=== PATIENT | female | born 1940 | race Caucasian/White ===

== ENCOUNTER 2024-01-25 09:08 | Inpatient (IN) | payer MEDICARE, BC, SELFPAY ==
[2024-01-23] VITALS (15 sets, daily range): BP systolic 118–166; BP diastolic 61–113; BMI 26.8
--- NOTE | 2024-01-23 10:19 | ED.GENMED ---
History of Present Illness
<BRANDY Silverman - Last Filed: 01/23/24 16:52>
General
Chief Complaint: Dizziness
Source: patient and family
Exam Limitations: none
Time Seen by Provider: 01/23/24 10:19
Nursing documentation reviewed up to this point in time: agreed with
History of Present Illness
History of Present Illness:
Patient is a 83-year-old female who presents to the ER for evaluation. Patient arrives awake alert though having difficulty giving history. She reports she was walking up her daughter's basement steps when she suddenly got weak all over and arms
and legs. She also complains of a headache for past week that started going to neck/jaw today. She feels that pain is in her bilateral jaw region. She did take
Daughter at bedside reports patient has been complaining of a headache for the past week but intensified today and she was complaining of pain to the neck shoulder and jaw. She did take a nitroglycerin. She however has had no chest pain no
shortness of breath. she denies any injury. She is on blood thinners.
Past History
<BRANDY Silverman - Last Filed: 01/23/24 16:52>
Past History
ED Past Medical History: CAD, GERD, HTN, Hypercholesterolemia and Other ('Lung problem')
ED Past Surgical History: Appendectomy, Cardiac (Stent) and Orthopedic
Social History
Tobacco: Non-smoker
Alcohol: None
Drug: None
Living: with family
Review of Systems
<BRANDY Silverman - Last Filed: 01/23/24 16:52>
Review of Systems
Allergies reviewed?: Yes
All Other Systems: ROS reviewed and negative except as documented in HPI and ROS
Constitutional: Reports fatigue
Respiratory: Reports no symptoms
Cardiac: Reports no symptoms
ABD/GI: Reports no symptoms
: Reports no symptoms
Musculoskeletal: Reports no symptoms
Neurological: Reports headache; Denies numbness
Endocrine: Reports no symptoms
Hematologic/Lymphatic: Reports no symptoms
Psychiatric: Reports no symptoms
Phy Exam
<BRANDY Silverman - Last Filed: 01/23/24 16:52>
General Physical Exam
General Presentation: well appearing
General age: appears stated age
General Skin: warm and dry
General Habitus: normal
General Mental: alert
General Hydration: appears well hydrated
Cardiovascular Exam
Cardiovascular Exam: regular rate/rhythm
Pulmonary Exam
Pulmonary Exam: lungs clear and no respiratory distress
Neurological Exam
Neurological Exam: alert and oriented x3
Musculoskeletal Exam
Musculoskeletal Exam: full ROM
Skin Exam
Skin Exam: normal color and warm/dry
Psychiatric Exam
Psychiatric Exam: normal mood/affect
Course
<BRANDY Silverman - Last Filed: 01/23/24 16:52>
Orders/Labs/Results
Orders:
Orders
01/23/24 10:12
Electrocardiogram (*1) Urgent
Reason for Study: Other
Other Reason for Exam: Possible Stroke
IV Insert/Care/Rem.- Treatment PRN
01/23/24 10:13
EKG- Treatment ONCE
01/23/24 10:22
Complete Blood Count/With Diff Urgent
Comprehensive Metabolic Panel Urgent
Troponin I Urgent
01/23/24 10:30
CT Head W/o Iv Contrast Stat
Comment:
Reason For Exam: HEADACHE CONFUSION
01/23/24 10:53
0.9% Sodium Chloride 1000 ml [Nss] 1,000 ml IV BOLUS
01/23/24 10:57
CT Head & Neck Angio W/wo IV Urgent
Comment:
Reason For Exam: headache neck pain jaw pain
01/23/24 11:04
UA Reflex to Culture [Urinalysis Reflex To Culture] Urgent
Date Specimen was Collected: 01/23/24
Time Specimen was Collected: 10:57
Urine Microscopic Reflex Cult Urgent
01/23/24 13:15
Acetaminophen [Tylenol] 1,000 mg PO NOW STA
Dexamethasone Sod Phosphate [Decadron] 10 mg IV NOW STA
01/23/24 13:47
Ketorolac [Toradol] 15 mg IV NOW STA
01/23/24 14:11
Electrocardiogram (*1) Stat
Reason for Study: Other
Other Reason for Exam: chest pain
EKG- Treatment ONCE
01/23/24 14:43
Troponin I Urgent
01/23/24 Dinner
2000 calorie (17 carb) Diabetic
At Your Request: Full Participation
Does patient need a safe tray?: No
01/23/24 16:56
HydrALAZINE [Apresoline] 20 mg PO NOW STA
01/23/24 18:14
Diphenhydramine [Benadryl] 25 mg IV NOW STA
Prochlorperazine [Compazine] 10 mg IV NOW STA
01/23/24 18:37
Admit/Transfer Patient As Directed
Co-Sign Provider:
Level of Care: Observation services
Assign to:: Telemetry
Physician / Group: Whitney
Diagnosis: Intractable Headache
Reason for Telemetry: Arrhythmia
Date to Stop Telemetry: 01/26/24
Time to Stop Telemetry: 11:00
01/23/24 18:40
Code Status As Directed
Resuscitation Status: Full Code
01/23/24 21:34
Acetaminophen [Tylenol/Feverall] 650 mg RECTAL Q4HPRN PRN
Acetaminophen [Tylenol] 650 mg PO Q4HPRN PRN
Carvedilol [Coreg] 25 mg PO BID
Dextrose 50%-Water [Dextrose 50% Syringe] 12.5 grams IV [id number] PRN
Glucagon [GlucaGen] 1 mg IM PRN PRN
Ketorolac [Toradol] 15 mg IV Q6HPRN PRN
Losartan [Cozaar] 50 mg PO BID
01/23/24 21:34
DIETARY CONSULT Routine
Reason for Consult: stroke/TIA
NEUROLOGY CONSULT Routine
Consulting Provider: Andrey Basurto
Was physician already notified: Yes
Activity As Directed
Activity Level: Out of Bed-Early Mobility
Bedside Glucose Monitoring As Directed
Frequency: AC&HS
Additional Instructions:: Change to q6h if pt on TPN, tube feeding or not eating
NIH Stroke Scale As Directed
Directions: Per protocol
Comment: every shift and with any change in condition or mental status
Neurological Checks As Directed
Frequency: q4h
Additional Instructions:: q4h x 24h upon admission to the floor, then qshift & with any change in condition
and mental status
Pneumatic Compression Sleeves As Directed
Type: Knee high
Vital Signs As Directed
Frequency: Per unit guidelines
Ot Eval And Treat Routine
Pt Eval And Treat Routine
Activity Level: Out of Bed-Early Mobility
DX Deep Vein Thrombosis Video Routine
01/23/24 22:00
Flush (0.9% Sodium Chloride) [Flush (Nss)] See Dose Instructions IV PER PROTOCOL
Pravastatin Sodium [Pravachol] 40 mg PO HS
01/24/24 03:11
Pt Screening Request from Raul Routine
Speech Screening from Raul Routine
01/24/24 05:50
Basic Metabolic Panel IN AM
CRP [C-Reactive Protein] IN AM
Cardiovascular Evaluation IN AM
Complete Blood Count/No Diff IN AM
ESR [Erythrocyte Sed Rate] IN AM
Ferritin Routine
Comment: ADD
Folate Routine
Comment: ADD
Free T4 Routine
Glycohemoglobin (HgbA1c) IN AM
Magnesium IN AM
TSH Reflex To Free T4 Routine
Comment: ADD
Vitamin B12 Routine
Comment: ADD
01/24/24 07:30
Insulin Aspart Corrective Low [Novolog Flexpen-Low Resistance] See Protocol SC AC
01/24/24 08:00
Aspirin Low Dose EC [Aspir Low (Enteric Coated)] 81 mg PO DAILY
01/24/24 09:21
Add On- LAB Routine
Comments:: Please add to today's labs or draw as routine
Tests Added?: TSH reflex, Ferritin, Folate, Vit. B12
01/24/24 09:31
Ondansetron HCl [Zofran] 4 mg PO NOW STA
01/24/24 09:33
Ketorolac [Toradol] 10 mg PO NOW STA
Lorazepam [Ativan] 1 mg PO NOW STA
01/24/24 10:00
Thiamine HCl [Vitamin B1] 100 mg PO DAILY
01/24/24 13:43
Patient Education As Directed
Type: Stroke education packet
01/24/24 18:00
Atorvastatin [Lipitor] 80 mg PO QPM
01/24/24 21:34
MR Brain W/o & With Contrast Routine
Reason For Exam: intractable headache
Recent pill cam endoscopy?: No
01/26/24 11:00
DC Protocol for Telemetry ONCE
Abnormal Lab Results
01/23/24 01/23/24 01/24/24
10:22 11:04 02:49
RBC 3.95 L 10^6/uL
(4.20-5.40)
Hgb 11.4 L g/dL
(12.0-16.0)
Hct 32.7 L %
(37.0-47.0)
Lymphocytes % 18.7 L %
(20.5-51.1)
ESR
Chloride
BUN 27 H mg/dl
(7-17)
Glucose 241 H mg/dl
(-99)
Hemoglobin A1c
Magnesium
Total Cholesterol
Folate
TSH (Reflex)
Urine Ketones Trace A
(Negative)
Urine Bilirubin 1+ A
(Negative)
Leukocyte Esterase Rfl Trace A
(Negative)
Urine Bacteria (Reflex) Few A
(Negative)
Urine Glucose Trace A
(Negative)
POC Glucose 208 H mg/dl
(-)
01/24/24 01/24/24 01/24/24
05:50 07:19 14:22
RBC 3.94 L 10^6/uL
(4.20-5.40)
Hgb 11.2 L g/dL
(12.0-16.0)
Hct 33.8 L %
(37.0-47.0)
Lymphocytes %
ESR 24 H mm/hour
(0-20)
Chloride 108 H mmol/L
(98-107)
BUN 26 H mg/dl
(7-17)
Glucose 169 H mg/dl
(70-99)
Hemoglobin A1c 9.0 H %
(4.0-5.6)
Magnesium 2.4 H mg/dl
(1.6-2.3)
Total Cholesterol 209 H mg/dl
(50-199)
Folate > 20.0 H ng/ml
(2.76-20)
TSH (Reflex) 0.20 L uIU/ml
(0.47-4.68)
Urine Ketones
Urine Bilirubin
Leukocyte Esterase Rfl
Urine Bacteria (Reflex)
Urine Glucose
POC Glucose 177 H mg/dl 237 H mg/dl
(99) (70-99)
01/24/24 01/24/24 01/25/24
18:11 21:42 07:52
RBC
Hgb
Hct
Lymphocytes %
ESR
Chloride
BUN
Glucose
Hemoglobin A1c
Magnesium
Total Cholesterol
Folate
TSH (Reflex)
Urine Ketones
Urine Bilirubin
Leukocyte Esterase Rfl
Urine Bacteria (Reflex)
Urine Glucose
POC Glucose 230 H mg/dl 263 H mg/dl 169 H mg/dl
() (7099) (70-99)
01/24/24 05:50
01/24/24 05:50
Vital Signs
Initial and Last Documented VS:
Initial Vital Signs
Pulse Resp Pulse Ox
63 16 98
01/23/24 10:13 01/23/24 10:13 01/23/24 10:13
Last Documented Vital Signs
Temp Pulse Resp BP Pulse Ox
97.9 F 71 18 154/85 96
01/25/24 07:00 01/25/24 07:23 01/25/24 07:00 01/25/24 07:23 01/25/24 07:00
Medical Information Specialist consulted with Physician
Medical Information Specialist consulted with physician?: Yes
Name of Physician Consulted: Mor
<Bruce Juares MD - Last Filed: 01/25/24 12:35>
Orders/Labs/Results
Orders:
Orders
01/23/24 10:12
Electrocardiogram (*1) Urgent
Reason for Study: Other
Other Reason for Exam: Possible Stroke
IV Insert/Care/Rem.- Treatment PRN
01/23/24 10:13
EKG- Treatment ONCE
01/23/24 10:22
Complete Blood Count/With Diff Urgent
Comprehensive Metabolic Panel Urgent
Troponin I Urgent
01/23/24 10:30
CT Head W/o Iv Contrast Stat
Comment:
Reason For Exam: HEADACHE CONFUSION
01/23/24 10:53
0.9% Sodium Chloride 1000 ml [Nss] 1,000 ml IV BOLUS
01/23/24 10:57
CT Head & Neck Angio W/wo IV Urgent
Comment:
Reason For Exam: headache neck pain jaw pain
01/23/24 11:04
UA Reflex to Culture [Urinalysis Reflex To Culture] Urgent
Date Specimen was Collected: 01/23/24
Time Specimen was Collected: 10:57
Urine Microscopic Reflex Cult Urgent
01/23/24 13:15
Acetaminophen [Tylenol] 1,000 mg PO NOW STA
Dexamethasone Sod Phosphate [Decadron] 10 mg IV NOW STA
01/23/24 13:47
Ketorolac [Toradol] 15 mg IV NOW STA
01/23/24 14:11
Electrocardiogram (*1) Stat
Reason for Study: Other
Other Reason for Exam: chest pain
EKG- Treatment ONCE
01/23/24 14:43
Troponin I Urgent
01/23/24 Dinner
2000 calorie (17 carb) Diabetic
At Your Request: Full Participation
Does patient need a safe tray?: No
01/23/24 16:56
HydrALAZINE [Apresoline] 20 mg PO NOW STA
01/23/24 18:14
Diphenhydramine [Benadryl] 25 mg IV NOW STA
Prochlorperazine [Compazine] 10 mg IV NOW STA
01/23/24 18:37
Admit/Transfer Patient As Directed
Co-Sign Provider:
Level of Care: Observation services
Assign to:: Telemetry
Physician / Group: Whitney
Diagnosis: Intractable Headache
Reason for Telemetry: Arrhythmia
Date to Stop Telemetry: 01/26/24
Time to Stop Telemetry: 11:00
01/23/24 18:40
Code Status As Directed
Resuscitation Status: Full Code
01/23/24 21:34
Acetaminophen [Tylenol/Feverall] 650 mg RECTAL Q4HPRN PRN
Acetaminophen [Tylenol] 650 mg PO Q4HPRN PRN
Carvedilol [Coreg] 25 mg PO BID
Dextrose 50%-Water [Dextrose 50% Syringe] 12.5 grams IV [id number] PRN
Glucagon [GlucaGen] 1 mg IM PRN PRN
Ketorolac [Toradol] 15 mg IV Q6HPRN PRN
Losartan [Cozaar] 50 mg PO BID
01/23/24 21:34
DIETARY CONSULT Routine
Reason for Consult: stroke/TIA
NEUROLOGY CONSULT Routine
Consulting Provider: Andrey Basurto
Was physician already notified: Yes
Activity As Directed
Activity Level: Out of Bed-Early Mobility
Bedside Glucose Monitoring As Directed
Frequency: AC&HS
Additional Instructions:: Change to q6h if pt on TPN, tube feeding or not eating
NIH Stroke Scale As Directed
Directions: Per protocol
Comment: every shift and with any change in condition or mental status
Neurological Checks As Directed
Frequency: q4h
Additional Instructions:: q4h x 24h upon admission to the floor, then qshift & with any change in condition
and mental status
Pneumatic Compression Sleeves As Directed
Type: Knee high
Vital Signs As Directed
Frequency: Per unit guidelines
Ot Eval And Treat Routine
Pt Eval And Treat Routine
Activity Level: Out of Bed-Early Mobility
DX Deep Vein Thrombosis Video Routine
01/23/24 22:00
Flush (0.9% Sodium Chloride) [Flush (Nss)] See Dose Instructions IV PER PROTOCOL
Pravastatin Sodium [Pravachol] 40 mg PO HS
01/24/24 03:11
Pt Screening Request from Raul Routine
Speech Screening from Raul Routine
01/24/24 05:50
Basic Metabolic Panel IN AM
CRP [C-Reactive Protein] IN AM
Cardiovascular Evaluation IN AM
Complete Blood Count/No Diff IN AM
ESR [Erythrocyte Sed Rate] IN AM
Ferritin Routine
Comment: ADD
Folate Routine
Comment: ADD
Free T4 Routine
Glycohemoglobin (HgbA1c) IN AM
Magnesium IN AM
TSH Reflex To Free T4 Routine
Comment: ADD
Vitamin B12 Routine
Comment: ADD
01/24/24 07:30
Insulin Aspart Corrective Low [Novolog Flexpen-Low Resistance] See Protocol SC AC
01/24/24 08:00
Aspirin Low Dose EC [Aspir Low (Enteric Coated)] 81 mg PO DAILY
01/24/24 09:21
Add On- LAB Routine
Comments:: Please add to today's labs or draw as routine
Tests Added?: TSH reflex, Ferritin, Folate, Vit. B12
01/24/24 09:31
Ondansetron HCl [Zofran] 4 mg PO NOW STA
01/24/24 09:33
Ketorolac [Toradol] 10 mg PO NOW STA
Lorazepam [Ativan] 1 mg PO NOW STA
01/24/24 10:00
Thiamine HCl [Vitamin B1] 100 mg PO DAILY
01/24/24 13:43
Patient Education As Directed
Type: Stroke education packet
01/24/24 18:00
Atorvastatin [Lipitor] 80 mg PO QPM
01/24/24 21:34
MR Brain W/o & With Contrast Routine
Reason For Exam: intractable headache
Recent pill cam endoscopy?: No
01/26/24 11:00
DC Protocol for Telemetry ONCE
Abnormal Lab Results
01/23/24 01/23/24 01/24/24
10:22 11:04 02:49
RBC 3.95 L 10^6/uL
(4.20-5.40)
Hgb 11.4 L g/dL
(12.0-16.0)
Hct 32.7 L %
(37.0-47.0)
Lymphocytes % 18.7 L %
(20.5-51.1)
ESR
Chloride
BUN 27 H mg/dl
(7-17)
Glucose 241 H mg/dl
(70-99)
Hemoglobin A1c
Magnesium
Total Cholesterol
Folate
TSH (Reflex)
Urine Ketones Trace A
(Negative)
Urine Bilirubin 1+ A
(Negative)
Leukocyte Esterase Rfl Trace A
(Negative)
Urine Bacteria (Reflex) Few A
(Negative)
Urine Glucose Trace A
(Negative)
POC Glucose 208 H mg/dl
(70-99)
01/24/24 01/24/24 01/24/24
05:50 07:19 14:22
RBC 3.94 L 10^6/uL
(4.20-5.40)
Hgb 11.2 L g/dL
(12.0-16.0)
Hct 33.8 L %
(37.0-47.0)
Lymphocytes %
ESR 24 H mm/hour
(0-20)
Chloride 108 H mmol/L
(98-107)
BUN 26 H mg/dl
(7-17)
Glucose 169 H mg/dl
(70-99)
Hemoglobin A1c 9.0 H %
(4.0-5.6)
Magnesium 2.4 H mg/dl
(1.6-2.3)
Total Cholesterol 209 H mg/dl
(50-199)
Folate > 20.0 H ng/ml
(2.76-20)
TSH (Reflex) 0.20 L uIU/ml
(0.47-4.68)
Urine Ketones
Urine Bilirubin
Leukocyte Esterase Rfl
Urine Bacteria (Reflex)
Urine Glucose
POC Glucose 177 H mg/dl 237 H mg/dl
() (-99)
01/24/24 01/24/24 01/25/24
18:11 21:42 07:52
RBC
Hgb
Hct
Lymphocytes %
ESR
Chloride
BUN
Glucose
Hemoglobin A1c
Magnesium
Total Cholesterol
Folate
TSH (Reflex)
Urine Ketones
Urine Bilirubin
Leukocyte Esterase Rfl
Urine Bacteria (Reflex)
Urine Glucose
POC Glucose 230 H mg/dl 263 H mg/dl 169 H mg/dl
() () (70-99)
01/24/24 05:50
01/24/24 05:50
Vital Signs
Initial and Last Documented VS:
Initial Vital Signs
Pulse Resp Pulse Ox
63 16 98
01/23/24 10:13 01/23/24 10:13 01/23/24 10:13
Last Documented Vital Signs
Temp Pulse Resp BP Pulse Ox
97.9 F 71 18 154/85 96
01/25/24 07:00 01/25/24 07:23 01/25/24 07:00 01/25/24 07:23 01/25/24 07:00
<Silvio Serna PA-C - Last Filed: 01/23/24 18:35>
Orders/Labs/Results
Orders:
Orders
01/23/24 10:12
Electrocardiogram (*1) Urgent
Reason for Study: Other
Other Reason for Exam: Possible Stroke
IV Insert/Care/Rem.- Treatment PRN
01/23/24 10:13
EKG- Treatment ONCE
01/23/24 10:22
Complete Blood Count/With Diff Urgent
Comprehensive Metabolic Panel Urgent
Troponin I Urgent
01/23/24 10:30
CT Head W/o Iv Contrast Stat
Comment:
Reason For Exam: HEADACHE CONFUSION
01/23/24 10:53
0.9% Sodium Chloride 1000 ml [Nss] 1,000 ml IV BOLUS
01/23/24 10:57
CT Head & Neck Angio W/wo IV Urgent
Comment:
Reason For Exam: headache neck pain jaw pain
01/23/24 11:04
UA Reflex to Culture [Urinalysis Reflex To Culture] Urgent
Date Specimen was Collected: 01/23/24
Time Specimen was Collected: 10:57
Urine Microscopic Reflex Cult Urgent
01/23/24 13:15
Acetaminophen [Tylenol] 1,000 mg PO NOW STA
Dexamethasone Sod Phosphate [Decadron] 10 mg IV NOW STA
01/23/24 13:47
Ketorolac [Toradol] 15 mg IV NOW STA
01/23/24 14:11
Electrocardiogram (*1) Stat
Reason for Study: Other
Other Reason for Exam: chest pain
EKG- Treatment ONCE
01/23/24 14:43
Troponin I Urgent
01/23/24 Dinner
2000 calorie (17 carb) Diabetic
At Your Request: Full Participation
Does patient need a safe tray?: No
01/23/24 16:56
HydrALAZINE [Apresoline] 20 mg PO NOW STA
01/23/24 18:14
Diphenhydramine [Benadryl] 25 mg IV NOW STA
Prochlorperazine [Compazine] 10 mg IV NOW STA
01/23/24 18:37
Admit/Transfer Patient As Directed
Co-Sign Provider:
Level of Care: Observation services
Assign to:: Telemetry
Physician / Group: Whitney
Diagnosis: Intractable Headache
Reason for Telemetry: Arrhythmia
Date to Stop Telemetry: 01/26/24
Time to Stop Telemetry: 11:00
01/23/24 18:40
Code Status As Directed
Resuscitation Status: Full Code
01/23/24 21:34
Acetaminophen [Tylenol/Feverall] 650 mg RECTAL Q4HPRN PRN
Acetaminophen [Tylenol] 650 mg PO Q4HPRN PRN
Carvedilol [Coreg] 25 mg PO BID
Dextrose 50%-Water [Dextrose 50% Syringe] 12.5 grams IV [id number] PRN
Glucagon [GlucaGen] 1 mg IM PRN PRN
Ketorolac [Toradol] 15 mg IV Q6HPRN PRN
Losartan [Cozaar] 50 mg PO BID
01/23/24 21:34
DIETARY CONSULT Routine
Reason for Consult: stroke/TIA
NEUROLOGY CONSULT Routine
Consulting Provider: Andrey Basurto
Was physician already notified: Yes
Activity As Directed
Activity Level: Out of Bed-Early Mobility
Bedside Glucose Monitoring As Directed
Frequency: AC&HS
Additional Instructions:: Change to q6h if pt on TPN, tube feeding or not eating
NIH Stroke Scale As Directed
Directions: Per protocol
Comment: every shift and with any change in condition or mental status
Neurological Checks As Directed
Frequency: q4h
Additional Instructions:: q4h x 24h upon admission to the floor, then qshift & with any change in condition
and mental status
Pneumatic Compression Sleeves As Directed
Type: Knee high
Vital Signs As Directed
Frequency: Per unit guidelines
Ot Eval And Treat Routine
Pt Eval And Treat Routine
Activity Level: Out of Bed-Early Mobility
DX Deep Vein Thrombosis Video Routine
01/23/24 22:00
Flush (0.9% Sodium Chloride) [Flush (Nss)] See Dose Instructions IV PER PROTOCOL
Pravastatin Sodium [Pravachol] 40 mg PO HS
01/24/24 03:11
Pt Screening Request from Raul Routine
Speech Screening from Raul Routine
01/24/24 05:50
Basic Metabolic Panel IN AM
CRP [C-Reactive Protein] IN AM
Cardiovascular Evaluation IN AM
Complete Blood Count/No Diff IN AM
ESR [Erythrocyte Sed Rate] IN AM
Ferritin Routine
Comment: ADD
Folate Routine
Comment: ADD
Free T4 Routine
Glycohemoglobin (HgbA1c) IN AM
Magnesium IN AM
TSH Reflex To Free T4 Routine
Comment: ADD
Vitamin B12 Routine
Comment: ADD
01/24/24 07:30
Insulin Aspart Corrective Low [Novolog Flexpen-Low Resistance] See Protocol SC AC
01/24/24 08:00
Aspirin Low Dose EC [Aspir Low (Enteric Coated)] 81 mg PO DAILY
01/24/24 09:21
Add On- LAB Routine
Comments:: Please add to today's labs or draw as routine
Tests Added?: TSH reflex, Ferritin, Folate, Vit. B12
01/24/24 09:31
Ondansetron HCl [Zofran] 4 mg PO NOW STA
01/24/24 09:33
Ketorolac [Toradol] 10 mg PO NOW STA
Lorazepam [Ativan] 1 mg PO NOW STA
01/24/24 10:00
Thiamine HCl [Vitamin B1] 100 mg PO DAILY
01/24/24 13:43
Patient Education As Directed
Type: Stroke education packet
01/24/24 18:00
Atorvastatin [Lipitor] 80 mg PO QPM
01/24/24 21:34
MR Brain W/o & With Contrast Routine
Reason For Exam: intractable headache
Recent pill cam endoscopy?: No
01/26/24 11:00
DC Protocol for Telemetry ONCE
Abnormal Lab Results
01/23/24 01/23/24 01/24/24
10:22 11:04 02:49
RBC 3.95 L 10^6/uL
(4.20-5.40)
Hgb 11.4 L g/dL
(12.0-16.0)
Hct 32.7 L %
(37.0-47.0)
Lymphocytes % 18.7 L %
(20.5-51.1)
ESR
Chloride
BUN 27 H mg/dl
(7-17)
Glucose 241 H mg/dl
(70-99)
Hemoglobin A1c
Magnesium
Total Cholesterol
Folate
TSH (Reflex)
Urine Ketones Trace A
(Negative)
Urine Bilirubin 1+ A
(Negative)
Leukocyte Esterase Rfl Trace A
(Negative)
Urine Bacteria (Reflex) Few A
(Negative)
Urine Glucose Trace A
(Negative)
POC Glucose 208 H mg/dl
(70-99)
01/24/24 01/24/24 01/24/24
05:50 07:19 14:22
RBC 3.94 L 10^6/uL
(4.20-5.40)
Hgb 11.2 L g/dL
(12.0-16.0)
Hct 33.8 L %
(37.0-47.0)
Lymphocytes %
ESR 24 H mm/hour
(0-20)
Chloride 108 H mmol/L
(98-107)
BUN 26 H mg/dl
(7-17)
Glucose 169 H mg/dl
(70-99)
Hemoglobin A1c 9.0 H %
(4.0-5.6)
Magnesium 2.4 H mg/dl
(1.6-2.3)
Total Cholesterol 209 H mg/dl
(50-199)
Folate > 20.0 H ng/ml
(2.76-20)
TSH (Reflex) 0.20 L uIU/ml
(0.47-4.68)
Urine Ketones
Urine Bilirubin
Leukocyte Esterase Rfl
Urine Bacteria (Reflex)
Urine Glucose
POC Glucose 177 H mg/dl 237 H mg/dl
(70-99) (70-99)
01/24/24 01/24/24 01/25/24
18:11 21:42 07:52
RBC
Hgb
Hct
Lymphocytes %
ESR
Chloride
BUN
Glucose
Hemoglobin A1c
Magnesium
Total Cholesterol
Folate
TSH (Reflex)
Urine Ketones
Urine Bilirubin
Leukocyte Esterase Rfl
Urine Bacteria (Reflex)
Urine Glucose
POC Glucose 230 H mg/dl 263 H mg/dl 169 H mg/dl
(70-99) (70-99) (70-99)
01/24/24 05:50
01/24/24 05:50
Vital Signs
Initial and Last Documented VS:
Initial Vital Signs
Pulse Resp Pulse Ox
63 16 98
01/23/24 10:13 01/23/24 10:13 01/23/24 10:13
Last Documented Vital Signs
Temp Pulse Resp BP Pulse Ox
97.9 F 71 18 154/85 96
01/25/24 07:00 01/25/24 07:23 01/25/24 07:00 01/25/24 07:23 01/25/24 07:00
<BRANDY Silverman - Last Filed: 01/23/24 16:52>
MDM/Problems Addressed
MDM/Problems Addressed:
Patient is 83-year-old female with past medical history of CAD hypertension hyperlipidemia former smoker cardiac stent presents to the ER for initial weakness headache and pain in the neck. Patient has had complaints of headache over the past
several days but today it went to her jaw. She took nitroglycerin despite not having chest pain or shortness of breath. Pt was eval by DR Juares and had CT head and cta head/neck to rule out dissection, both studies were normal. Patient has no
complaints of visual disturbances no pain with chewing. Patient was given Toradol and Decadron for headache and was monitored here but continues to complain of headache and jaw pain. Blood pressure however has been elevated. She did take her
losartan and carvedilol this morning.
Case discussed admitting hospitalist will try to lower blood pressure and see if symptoms improve and re-eval.
1650: Care of patient this time transferred to Yann Serna.
<BRANDY Silverman - Last Filed: 01/23/24 16:52>
*Pulse Oximetry
Patient hypoxic: no
<Silvio Serna PA-C - Last Filed: 01/23/24 18:35>
*Critical Care Note
Total Time (30-74mins, 75-104mins- exclusive of procedures): Not Applicable
<Silvio Serna PA-C - Last Filed: 01/23/24 18:35>
Update Note
Update Note:
Took over care of patient pending reevaluation after blood pressure improvement. Blood pressure has improved after hydralazine. Blood pressure 140/81. Still with significant headache and jaw pain. Troponin x [address] and CTA negative.
Patient with intractable symptoms. Will admit to hospital for further evaluation
ED Attending Note
<BRANDY Silverman - Last Filed: 01/23/24 16:52>
-
Portions of this chart may have been created with voice recognition software.� Occasional wrong word or��sound alike� substitutions may have occurred due to the inherent limitations of voice recognition software.
<Bruce Juares MD - Last Filed: 01/25/24 12:35>
ED Attending Note
Patient seen and examined by attending physician: Yes
ED Attending Note:
Patient presents to ED secondary to worsening posterior headache radiating down her neck and shoulders over the past 2 weeks. Denies blurred vision. Denies dizziness. Denies loss of sensation or weakness. Denies difficulty with speech or
swallowing. Denies difficulty with ambulation. Denies trauma. Denies previous history of neck pain or headache. Denies recent injury. Patient is currently visiting from [place].
Physical Exam
General: mild painful distress, not acutely ill. afebrile.
Head: nc/at. eomi
Neck: supple. normal range of motion. mild diffuse paracervical tenderness at base of neck, with associated mild muscle spasm.
Heart: s1/s2 regular rate and rhythm, no murmur. equal radial pulses.
Lungs: no acute respiratory distress. clear bilaterally
Abdomen: normal bowel sounds. not tender.
Neuro: alert and oriented. no focal neurological deficits
Skin: no rash
Psychiatric: well kept. interactive and cooperative
Extremities: no edema. no calf tenderness
CT head, followed by a CT angiogram head and neck, without any acute abnormalities. Patient otherwise remains afebrile, hemodynamically stable, and neurologically intact. History and exam concerning for likely musculoskeletal pain versus cervical
radiculopathy.
Discharge Plan
Departure
Patient Disposition: Admit
Date of Disposition: 01/23/24
Time of Disposition: 18:35
Admit to: Med/Surg
Presentation/result/management discussed w/ accepting MD/DO: Hospitalist
Discharge Problem:
Headache
Interventions
Interventions:
*Risk Screen - Suicide Last Done: 01/23/24 10:13
*General Assessment Last Done: 01/23/24 10:13
*Neglect/Abuse Screening Last Done: 01/23/24 10:13
ED- Fall Risk Assessment Last Done: 01/24/24 02:00
*ED COVID-19 Vaccine History Last Done: 01/23/24 10:13
*Nursing Disposition Last Done: 01/24/24 02:00
ED- Neurological Assessment Last Done: 01/23/24 10:13
ED- Cardiac Assessment Last Done: 01/23/24 19:30
ED Swallowing Screen Last Done: 01/23/24 16:33
Discharge Date and Time
Discharge Date/Time: 01/24/24 02:00
[2024-01-23 10:29] LABS: % Basophils 1.4 % (0-2); % Eosinophils 4.1 % (0-6); % Immature Granulocytes 0.3 % (0-0.5); % Lymphocytes 18.7 % (20.5-51.1); % Monocytes 8.2 % (1.7-9.3); % Neutrophils 67.3 % (42.2-75.2); Absolute Basophils 0.1 10^3/uL (0-0.2); Absolute Eosinophils 0.3 10^3/uL (0-0.7); Absolute Lymphocytes 1.2 10^3/uL (1.2-3.4); Absolute Monocytes 0.5 10^3/uL (0.1-0.6); Absolute Neutrophils 4.3 10^3/uL (1.4-6.5); Hematocrit 32.7 % (37.0-47.0); Hemoglobin 11.4 g/dL (12.0-16.0); Mean Corp Hgb Conc. 34.9 g/dL (33.0-37.0); Mean Corpuscular Hgb 28.9 pg (27.0-31.0); Mean Corpuscular Volume 82.8 fL (81.0-99.0); Mean Platelet Volume 9.5 fL (7.4-10.4); Nucleated Red Blood Cells % 0 %; Platelet Count 177 10^3/uL (130-400); Red Blood Cell Count 3.95 10^6/uL (4.20-5.40); Red Cell Dist. Width 12.7 % (11.5-14.5); White Blood Cell Count 6.4 10^3/uL (4.8-10.8)
[2024-01-23 10:41] LABS: ALT (SGPT) 15 U/L (0-35); AST (SGOT) 26 U/L (14-36); Albumin 3.6 g/dl (3.5-5.0); Alkaline Phosphatase 71 U/L (38-126); Blood Urea Nitrogen 27 mg/dl (7-17); Calcium 8.9 mg/dl (8.4-10.2); Carbon Dioxide 26 mmol/L (22-30); Chloride 105 mmol/L (98-107); Estimated Creatinine Clearance 51 ml/min; Glucose 241 mg/dl (70-99); Potassium 4.2 mmol/L (3.5-5.1); Sodium 136 mmol/L (135-145); Total Bilirubin 1.2 mg/dl (0.2-1.3); Total Protein 6.5 g/dl (6.3-8.2); eGFR > 60.00
[2024-01-23 10:52] LABS: Troponin I < 0.012 ng/ml
[2024-01-23] MEDS: NSS 1000 IV (11:03)
[2024-01-23 11:12] LABS: Urine Albumin Trace (Neg - Trace); Urine Bilirubin 1+ (Negative); Urine Character Clear (Clear); Urine Color Yellow; Urine Glucose Trace (Negative); Urine Ketone Trace (Negative); Urine Leukocyte Trace (Negative); Urine Nitrite Negative (Negative); Urine Occult Blood Negative (Negative); Urine Urobilinogen Negative (Neg - 1+)
[2024-01-23 11:21] LABS: Urine Red Blood Cell None Seen /HPF (0-2); Urine Urothelial Cell 0-2 /LPF (FEW)
[2024-01-23 11:23] LABS: Urine Bacteria Few (Negative)
[2024-01-23] MEDS: TYLENOL 1000 MG PO (13:30)
[2024-01-23] MEDS: DECADRON 10 MG IV (13:30)
[2024-01-23] MEDS: TORADOL 15 MG IV (13:59)
[2024-01-23 15:23] LABS: Troponin I < 0.012 ng/ml
[2024-01-23] MEDS: APRESOLINE 20 MG PO (17:00)
[2024-01-23] MEDS: BENADRYL 25 MG IV (18:28)
[2024-01-23] MEDS: COMPAZINE 10 MG IV (18:28)
--- NOTE | 2024-01-23 19:12 | W.PN.UPDATE ---
Update Note
Progress Note Update
This is an addendum to the H&P written by Ramona Fitzpatrick on 01/23/2024. Patient seen and examined independently with PA.
83-year-old female past medical history of CAD, hypertension, GERD, hypercholesteremia, presenting with headache for the past week worsening. Pain is located in the top of her head as well as her bilateral neck/jaw area associate with some
numbness. There is photophobia. Patient has poor vision at baseline, no new blurry vision, double vision or vision loss. No history of migraines. No other neurological symptoms.
CTA head and neck without any acute abnormalities. EKG unremarkable.
Patient currently not cooperative with examination because she is sedated from medications given in ER.
Clinically suspect migraine although some atypical features. No nasal discharge due to sinusitis. No temporal pain to suggest GCA. No cervical abnormalities noted on CTA of neck. Tylenol, Toradol for pain. Check MRI brain. Neurology consulted.
--- NOTE | 2024-01-23 19:20 | HPS.HSE ---
Family Physician
-
Family Physician: * NONE
Chief Complaint
-
Headache and Jaw Pain
History of Present Illness
Patient is a 83y female past medical history of coronary artery disease, hypertension, hyperlipidemia and diabetes mellitus, who presents with severe headache and jaw pain. Patient reports a generalized headache over the past few days. This
morning headache worsened now radiating into the bilateral jaw area, and associated neck pain. She reports mild phonophobia, but denies photophobia. She denies visual changes. She denies prior history of migraine. She denies fever, sweats or
chills.
Medical History
Past Medical History
Past Medical History: Reports Other
Additional Past Medical History:
Coronary Artery Disease
Essential Hypertension
Hyperlipidemia
Diabetes Mellitus, Type II
GERD
Pancreatitis
Past Surgical History: Reports Other
Additional Past Surgical History:
Cardiac Stent
Atrial Septal Defect Repair
Cervical Spine Surgery
Appendectomy
Cholecystectomy
Social History
Tobacco: Non-smoker
Alcohol: None
Family History
Family History: Not pertinent
Allergies / Home Medications
Allergies reflects when Allergies were last updated in [facility].
Home Medications with original date entered in [facility]
Allergy/Medication List:
Allergies
Allergy/AdvReac Type Severity Reaction Status Date / Time
codeine Allergy Hives Verified 07/09/20 17:23
Penicillins Allergy Hives Verified 07/09/20 17:23
Sulfa (Sulfonamide Allergy Really sick Verified 07/09/20 17:23
Antibiotics)
Home Medications
aspirin 81 mg tablet,delayed release 81 mg PO DAILY 01/23/24
carvedilol 25 mg tablet (Coreg) 25 mg PO BID 01/23/24
losartan 50 mg tablet 50 mg PO BID 01/23/24
nitroglycerin 0.4 mg sublingual tablet (Nitrostat) 0.4 mg sublingual [id number] PRN chest pain 01/23/24
pravastatin 40 mg tablet 40 mg PO HS 01/23/24
therapeutic multivitamin 1 tab PO DAILY 01/23/24
Review of Systems
-
A 12 point ROS was completed and negative except as noted: Yes
Constitutional: Denies Fever or Chills
Respiratory: Denies Cough or Trouble Breathing
Cardiac: Denies Chest Pain or Palpitations
Neurological: Reports See HPI
Physical Exam
Vital Signs
Vital Signs
Temp Pulse Resp BP Pulse Ox
97.6 F 77 19 141/80 94
01/23/24 10:24 01/23/24 18:30 01/23/24 18:30 01/23/24 18:00 01/23/24 18:30
Physical Exam
General: Comfortable and Conversant
HEENT: Anicteric, Moist mucous membranes, PERRLA (Difficult to perform EOMs due to frequent blinking, but appears to have some nystagmus and patient reports dizziness associated with eye movement) and Other (Neck supple; Negative Brudzinski sign)
Respiratory: Clear and Non Labored Respirations
Cardiac: S1/S2 and Regular Rhythm
GI: Soft and Non Tender
Rectal: Deferred by Provider
Musculoskeletal: No Clubbing, No Cyanosis and No Edema
Skin: Warm and Dry
Neuro: Awake, Alert, Oriented and Nonfocal/grossly intact
Laboratory Results
-
01/23/24 10:22
01/23/24 10:22
Laboratory Results
Total Bilirubin 1.2 mg/dl (0.2-1.3) 01/23/24 10:22
AST 26 U/L (14-36) 01/23/24 10:22
ALT 15 U/L (0-35) 01/23/24 10:22
Alkaline Phosphatase 71 U/L (38-126) 01/23/24 10:22
Troponin I < 0.012 ng/ml 01/23/24 14:43
Data Reviewed
-
Lab Data: Labs Reviewed by me
Impression/Plan
-
Intractable Headache
-Consult Neurology
-Check Brain MRI
-Continue Tylenol and Toradol as needed
-Monitor for response to given Benadryl/Compazine
Coronary Artery Disease
-Continue aspirin
Essential Hypertension
-Continue carvedilol and losartan with hold parameters
Hyperlipidemia
-Continue pravastatin
Diabetes Mellitus, Type II
-Check HgbA1c
-Monitor sugars and continue coverage insulin
DVT proph: SCDs
Code Status: Full Code
[2024-01-23] MEDS: COREG 25 MG PO (22:29)
[2024-01-23] MEDS: PRAVACHOL 40 MG PO (22:30)
[2024-01-23] MEDS: COZAAR 50 MG PO (22:32)
[2024-01-24] VITALS (10 sets, daily range): BP systolic 103–168; BP diastolic 50–83; PULSE 67–68; O2SAT 96; BMI 25.7
[2024-01-24 02:51] LABS: Glucose - Point of Care 208 mg/dl (70-99)
--- NOTE | 2024-01-24 03:00 | PTCARENOTE ---
Pt arrived to unit from ED and was a pullover assist from stretcher to bed. Pt is AAOx3 but forgetful, bed alarm in place. VS on admission stable, pt oriented to room and call ndiaye within reach.
[2024-01-24 07:07] LABS: Hematocrit 33.8 % (37.0-47.0); Hemoglobin 11.2 g/dL (12.0-16.0); Mean Corp Hgb Conc. 33.1 g/dL (33.0-37.0); Mean Corpuscular Hgb 28.4 pg (27.0-31.0); Mean Corpuscular Volume 85.8 fL (81.0-99.0); Mean Platelet Volume 9.8 fL (7.4-10.4); Platelet Count 200 10^3/uL (130-400); Red Blood Cell Count 3.94 10^6/uL (4.20-5.40); Red Cell Dist. Width 12.9 % (11.5-14.5); White Blood Cell Count 7.6 10^3/uL (4.8-10.8)
[2024-01-24 07:21] LABS: Glucose - Point of Care 177 mg/dl (70-99)
[2024-01-24 07:32] LABS: C-Reactive Protein < 5.00 mg/L (0.0-10.00)
[2024-01-24 07:36] LABS: Blood Urea Nitrogen 26 mg/dl (7-17); Calcium 9.1 mg/dl (8.4-10.2); Carbon Dioxide 23 mmol/L (22-30); Chloride 108 mmol/L (98-107); Estimated Creatinine Clearance 51 ml/min; Glucose 169 mg/dl (70-99); HDL Cholesterol 72 mg/dl; LDL Cholesterol, Calculated 127 mg/dl; Magnesium 2.4 mg/dl (1.6-2.3); Potassium 4.7 mmol/L (3.5-5.1); Sodium 139 mmol/L (135-145); Total Cholesterol 209 mg/dl (50-199); Triglyceride 54 mg/dl (10-149); Very Low Density Lipoprotein 10 mg/dl (0-30); eGFR > 60.00
[2024-01-24 08:02] LABS: Erythrocyte Sed Rate 24 mm/hour (0-20)
--- NOTE | 2024-01-24 09:14 | CON.NEURO4 ---
Addendum entered and electronically signed by Dickson Gamble MD 01/24/24 14:54:
Presence of right thalamic acute ischemic stroke.
Recommendations as previously. Provide symptomatic therapy for the patient's headache.
We will follow as needed.
Addendum entered and electronically signed by Dickson Gamble MD 01/24/24 12:07:
Studies reviewed.
I have personally examined the patient. I reviewed and agree with the LITHOGRAPHIC PRINTING MACHINIST's Note.
My addenda:
Awake, alert, interactive. No acute distress.
Speech intact.
Follows 2-step requests w/ difficulty. No tremor.
Extra-ocular movements grossly intact.
Facial movements full and symmetric. Hearing intact to normal conversational volume.
Normal UE movements bilaterally.
Neck: full ROM.
Chest: no dyspnea
Heart: no JVD
Ext: (-) Clubbing, (-) Cyanosis, (-) Edema
IMPRESSIONS/RECOMMENDATIONS:
Abrupt onset of headache. Patient seems to develop this particular symptom during other systemic stressors including stroke
Agree with repeated MRI of brain
Provide ondansetron for headache discomfort
Repeat ketorolac due to headache discomfort
As outpatient, may need to use rimegepant
Consider MRA based on MRI of brain results
Continue aspirin 81 mg daily
Due to elevated LDL, replace pravastatin with atorvastatin 80 mg daily
D/W patient
Will continue to follow pending results.
Original Note:
Documented by User: Faby Rodriguez NP 01/24/24 11:04
Consultation - Neurology 4
-
CONSULTING PHYSICIAN: Dickson Gamble MD
REFERRING PHYSICIAN: Hospitalists/Ramona Fitzpatrick PA-C
DICTATED BY: BRANDY Holden
DATE/TIME OF REQUEST: 01/23/24
DATE/TIME OF CONSULTATION: 01/24/24
Reason for Consultation: Headache
History of Present Illness:
This is an 83-year-old right-handed female who has presented to the hospital on 01/23/24 with report of headache. Patient lives in [place] but is here visiting her daughter. Patient reports that for the past 1.5 weeks she has felt excessively tired
and had an intermittent mild headache. Then yesterday morning, she was walking up the basement stairs in her daughter's house when suddenly she developed a sense of generalized weakness, disorientation, and her headache became a 10/10 squeezing
sensation. Her headache is mostly at the top of her head but radiates down the back of her head to her neck. She reports nausea and phonophobia but denies photophobia and vomiting. She received migraine medications in the ER last evening and today
(01/24/24) her headache is a 6/10. She notes mild bilateral jaw discomfort but aside from having a poor appetite the past several days she is chewing without discomfort. She reports a chronic sensation of feeling like food catches in her throat since
her cardiac surgery in 2012.
She notes that in April 2023 she had a similar headache and was found to have an ischemic stroke at that time in [place], she cannot provide further details. Then in June 2023 she was hospitalized for one month with [facility] and had a similar
headache then too. She presented to the ER for evaluation due to concern of another stroke or illness producing her headache. CT head and CTA head/neck were obtained on arrival and are negative for any acute abnormalities. She denies any dizziness,
vision changes, speech difficulty, numbness, focal weakness, chest pain, palpitations, and shortness of breath. She denies any recent fever, cough, or infection. She is taking an aspirin 81mg daily for stroke prevention.
Past Medical History: HTN, HLD, CVA, CAD, atrial septal defect, NIDDM, asthma, GERD, chronic pancreatitis
Surgical History: Cardiac stent, atrial septal defect repair, cervical spine surgery, appendectomy, cholecystectomy
Family History: Reviewed and noncontributory.
Social History: Denies tobacco, alcohol, and illicit drug use.
Allergies: Codeine, penicillins, sulfa.
Home Medications: See below.
Review of Symptoms:
Patient denies any fever, chest pain, shortness of breath, or symptoms.
�Per the HPI.�All systems are reviewed negative except above.
Physical Exam:
The patient is afebrile, abdomen is nondistended, breathing is unlabored, skin is warm and dry, no edema.
NIH Stroke Scale:
I performed the NIH stroke scale on the patient on 01/24/24 at 0930. The patient scored 0 points on the NIH stroke scale assessment, which were assigned as follows: See below.
Neurologic Examination:
The patient is awake, alert and oriented x 3. She is able to follow commands and answer questions appropriately. There is no aphasia or dysarthria. On cranial nerve assessment, pupils are 3 mm bilateral, round and reactive to light and
accommodation. Visual cole are full. Extraocular movements are intact. Facial sensations are intact and bilaterally symmetrical, there is no facial asymmetry. No temporal tenderness noted. Hearing is intact bilaterally to normal conversation
volume. Tongue palate and uvula are midline. Sternocleidomastoid strengths are full bilaterally. Motor strengths are 5/5 bilateral upper and lower extremities on medical research [place] scale. There is no drift or involuntary movement noted. Deep
tendon reflexes are 1+ bilateral upper and lower extremities and Babinski is absent bilaterally. Sensations of touch, temperature and vibration are intact and bilaterally symmetrical. There was no extinction noted on double simultaneous stimulation.
Coordination is intact by finger to nose bilaterally.
Lab Results:
Neuro Imaging:
1. CT Head 01/23/24: There are no acute intracranial abnormalities. There is moderate diffuse cortical atrophy with mild nonspecific white matter changes as described above.
2. CTA Head/Neck 01/23/24: There are no acute abnormalities. There is small volume partially calcific atherosclerotic plaque at the cavernous and supraclinoid portions of both internal carotid arteries without significant associated stenosis.
Differentials for the patient's presentation include:
1. Migraine without aura, intractable.
2. Low concern for temporal arteritis.
3. Cannot entirely exclude structural brain abnormality producing headache however neurological exam is normal.
4. Poorly controlled diabetes.
Patient has the following risk factors for their symptoms: Previous migraines, hx stroke, HTN, HLD, age
Recommendations:
-Provide Zofran 4mg PO x1 now for headache relief.
-Provide Toradol 10mg PO x1 now for headache relief.
-MRI brain w/ and w/o contrast ordered/pending.
-Goal normotension.
-LDL goal <70. LDL is 127. Change home pravastatin 40mg daily to atorvastatin 80mg daily.
-Goal normoglycemia, hbA1c is 9.0.
-Checking blood work for metabolic abnormalities.
-Neurological checks per unit guidelines.
-DVT prophylaxis.
-Will follow pending results.
Discussed patient care with: Dr. Gamble, the patient
Vital Signs and Labs
-
Vital Signs and Labs:
Vital Signs
Temp Pulse Resp BP Pulse Ox
98.4 F 84 21 103/74 98
01/24/24 08:11 01/24/24 08:11 01/24/24 08:11 01/24/24 08:11 01/24/24 08:11
Lab Results
01/24/24 05:50
01/24/24 05:50
Sodium 139 mmol/L (135-145) 01/24/24 05:50
Potassium 4.7 mmol/L (3.5-5.1) 01/24/24 05:50
BUN 26 mg/dl (7-17) H 01/24/24 05:50
Glucose 169 mg/dl (70-99) H 01/24/24 05:50
Calcium 9.1 mg/dl (8.4-10.2) 01/24/24 05:50
LDL Cholesterol, Calc 127 mg/dl 01/24/24 05:50
Medications
-
Active Medications
Generic Name Dose Route Start Last Admin
Trade Name Freq PRN Reason Stop Dose Admin
Acetaminophen 650 mg 01/23/24 21:34
Acetaminophen 650 Mg Rectal Suppository RECTAL 02/20/24 21:33
Q4HPRN PRN
HUGGINS, mild pain, or temp >100.4F
Acetaminophen 650 mg 01/23/24 21:34
Acetaminophen 325 Mg Tablet PO 02/20/24 21:33
Q4HPRN PRN
HUGGINS, mild pain, or temp >100.4F
Aspirin 81 mg 01/24/24 08:00 01/24/24 10:16
Aspirin 81 Mg (Enteric Coated) Tablet PO 02/21/24 07:59 81 mg
DAILY DAMARIS Administration
Atorvastatin Calcium 80 mg 01/24/24 18:00
Atorvastatin (Lipitor) 80 Mg Tablet PO 02/21/24 17:59
QPM DAMARIS
Carvedilol 25 mg 01/23/24 21:34 01/24/24 10:11
Carvedilol 25 Mg Tablet PO 02/20/24 21:33 Not Given
BID DAMARIS
Dextrose 12.5 grams 01/23/24 21:34
Dextrose 50% (0.5 Grams/Ml) 50 Ml Syringe IV 02/20/24 21:33
[id number] PRN
hypoglycemia
Protocol
Glucagon 1 mg 01/23/24 21:34
Glucagon 1 Mg Vial IM 02/20/24 21:33
PRN PRN
hypoglycemia
Protocol
Insulin Aspart 0 units 01/24/24 07:30 01/24/24 10:14
Insulin Aspart Low Resistance 300 Units/3 Ml Pen.Injctr SC 02/21/24 07:29 1 units
AC DAMARIS Administration
Protocol
Ketorolac Tromethamine 15 mg 01/23/24 21:34
Ketorolac 15 Mg/Ml Injection IV 01/28/24 21:33
Q6HPRN PRN
moderate/severe headache
Losartan Potassium 50 mg 01/23/24 21:34 01/23/24 22:32
Losartan 50 Mg Tablet PO 02/20/24 21:33 50 mg
BID DAMARIS Administration
Sodium Chloride 0 flush 01/23/24 22:00
Sodium Chloride 0.9% (Flush) Syringe IV 02/20/24 21:59
PER PROTOCOL DAMARIS
Thiamine HCl 100 mg 01/24/24 10:00 01/24/24 10:21
Thiamine 100 Mg Tablet PO 01/26/24 08:01 100 mg
DAILY DAMARIS Administration
Home Medications
�Medication �Instructions �Recorded
aspirin 81 mg tablet,delayed 81 mg PO DAILY Blood Clot 01/23/24
release Prevention/Tx
carvedilol 25 mg tablet (Coreg) 25 mg PO BID Heart Failure 01/23/24
losartan 50 mg tablet 50 mg PO BID Blood Pressure 01/23/24
nitroglycerin 0.4 mg sublingual 0.4 mg sublingual [id number] PRN 01/23/24
tablet (Nitrostat) chest pain
pravastatin 40 mg tablet 40 mg PO HS High Cholesterol 01/23/24
therapeutic multivitamin 1 tab PO DAILY Supplement 01/23/24
NIH Stroke Score
Subsequent NIH Scale
Date of Subsequent NIH Scale: 01/24/24
Time of Subsequent NIH Scale: 09:30
NIH Stroke Score
Level of Consciousness: 0 - Alert
LOC Questions: 0-Answers both correctly
LOC Commands: 0-Performs both correctly
Best Horizontal Gaze: 0-Normal
Visual Cole: 0=Normal, no visual loss
Facial Palsy: 0=Normal, symmetrical
Motor - Right Arm: 0=No drift 10 seconds
Motor - Left Arm: 0=No drift 10 seconds
Motor - Right Le-No drift 5 seconds
Motor - Left Le-No drift 5 seconds
Limb Ataxia: 0-Absent
Sensation: 0-Normal
Best Language: 0-No aphasia
Dysarthria: 0-Normal
Extinction and Inattention: 0-No abnormality
Total Score:: 0

Documented by User: Dickson Gamble MD 01/24/24 11:48
Consultation - Neurology 4
-
CONSULTING PHYSICIAN: Dickson Gamble MD
REFERRING PHYSICIAN: Hospitalists/Ramona Fitzpatrick PA-C
DICTATED BY: BRANDY Holden
DATE/TIME OF REQUEST: 01/23/24
DATE/TIME OF CONSULTATION: 01/24/24
Reason for Consultation: Headache
History of Present Illness:
This is an 83-year-old right-handed female who has presented to the hospital on 01/23/24 with report of headache. Patient lives in [place] but is here visiting her daughter. Patient reports that for the past 1.5 weeks she has felt excessively tired
and had an intermittent mild headache. Then yesterday morning, she was walking up the basement stairs in her daughter's house when suddenly she developed a sense of generalized weakness, disorientation, and her headache became a 10/10 squeezing
sensation. Her headache is mostly at the top of her head but radiates down the back of her head to her neck. She reports nausea and phonophobia but denies photophobia and vomiting. She received migraine medications in the ER last evening and today
(01/24/24) her headache is a 6/10. She notes mild bilateral jaw discomfort but aside from having a poor appetite the past several days she is chewing without discomfort. She reports a chronic sensation of feeling like food catches in her throat since
her cardiac surgery in 2012.
She notes that in April 2023 she had a similar headache and was found to have an ischemic stroke at that time in [place], she cannot provide further details. Then in June 2023 she was hospitalized for one month with Covid and had a similar
headache then too. She presented to the ER for evaluation due to concern of another stroke or illness producing her headache. CT head and CTA head/neck were obtained on arrival and are negative for any acute abnormalities. She denies any dizziness,
vision changes, speech difficulty, numbness, focal weakness, chest pain, palpitations, and shortness of breath. She denies any recent fever, cough, or infection. She is taking an aspirin 81mg daily for stroke prevention.
Past Medical History: HTN, HLD, CVA, CAD, atrial septal defect, NIDDM, asthma, GERD, chronic pancreatitis
Surgical History: Cardiac stent, atrial septal defect repair, cervical spine surgery, appendectomy, cholecystectomy
Family History: Reviewed and noncontributory.
Social History: Denies tobacco, alcohol, and illicit drug use.
Allergies: Codeine, penicillins, sulfa.
Home Medications: See below.
Review of Symptoms:
Patient denies any fever, chest pain, shortness of breath, or symptoms.
�Per the HPI.�All systems are reviewed negative except above.
Physical Exam:
The patient is afebrile, abdomen is nondistended, breathing is unlabored, skin is warm and dry, no edema.
NIH Stroke Scale:
I performed the NIH stroke scale on the patient on 01/24/24 at 0930. The patient scored 0 points on the NIH stroke scale assessment, which were assigned as follows: See below.
Neurologic Examination:
The patient is awake, alert and oriented x 3. She is able to follow commands and answer questions appropriately. There is no aphasia or dysarthria. On cranial nerve assessment, pupils are 3 mm bilateral, round and reactive to light and
accommodation. Visual cole are full. Extraocular movements are intact. Facial sensations are intact and bilaterally symmetrical, there is no facial asymmetry. No temporal tenderness noted. Hearing is intact bilaterally to normal conversation
volume. Tongue palate and uvula are midline. Sternocleidomastoid strengths are full bilaterally. Motor strengths are 5/5 bilateral upper and lower extremities on medical research [place] scale. There is no drift or involuntary movement noted. Deep
tendon reflexes are 1+ bilateral upper and lower extremities and Babinski is absent bilaterally. Sensations of touch, temperature and vibration are intact and bilaterally symmetrical. There was no extinction noted on double simultaneous stimulation.
Coordination is intact by finger to nose bilaterally.
Lab Results:
Neuro Imaging:
1. CT Head 01/23/24: There are no acute intracranial abnormalities. There is moderate diffuse cortical atrophy with mild nonspecific white matter changes as described above.
2. CTA Head/Neck 01/23/24: There are no acute abnormalities. There is small volume partially calcific atherosclerotic plaque at the cavernous and supraclinoid portions of both internal carotid arteries without significant associated stenosis.
Differentials for the patient's presentation include:
1. Migraine without aura, intractable.
2. Low concern for temporal arteritis.
3. Cannot entirely exclude structural brain abnormality producing headache however neurological exam is normal.
4. Poorly controlled diabetes.
Patient has the following risk factors for their symptoms: Previous migraines, hx stroke, HTN, HLD, age
Recommendations:
-Provide Zofran 4mg PO x1 now for headache relief.
-Provide Toradol 10mg PO x1 now for headache relief.
-MRI brain w/ and w/o contrast ordered/pending.
-Goal normotension.
-LDL goal <70. LDL is 127. Change home pravastatin 40mg daily to atorvastatin 80mg daily.
-Goal normoglycemia, hbA1c is 9.0.
-Checking blood work for metabolic abnormalities.
-Neurological checks per unit guidelines.
-DVT prophylaxis.
-Will follow pending results.
Discussed patient care with: Dr. Gamble, the patient
NIH Stroke Score
NIH Stroke Score
Total Score:: 0
[2024-01-24] MEDS: COREG PO (10:11)
[2024-01-24] MEDS: NOVOLOG FLEXPEN-LOW RESISTANCE 1 UNITS SC (10:14)
[2024-01-24] MEDS: TORADOL 10 MG PO (10:16)
[2024-01-24] MEDS: ASPIR LOW (ENTERIC COATED) 81 MG PO (10:16)
[2024-01-24] MEDS: ATIVAN 1 MG PO (10:16)
[2024-01-24] MEDS: ZOFRAN 4 MG PO (10:18)
[2024-01-24] MEDS: VITAMIN B1 100 MG PO (10:21)
--- NOTE | 2024-01-24 10:57 | W.PN.HOSP.TC ---
Today's Communication/Plan
-
Continue with symptomatic treatments for headache.
Assessment / Plan
Assessment / Plan
Intractable Headache-suspect primary headache
-CT head negative and also CT angiogram of head and neck
-Continue with symptomatic approach
-Await neurology input
Coronary Artery Disease
-Continue aspirin
Essential Hypertension
-Continue carvedilol and losartan with hold parameters
Hyperlipidemia
-Continue pravastatin
Diabetes Mellitus, Type II
-Check HgbA1c
-Monitor sugars and continue coverage insulin
DVT proph: SCDs
Code Status: Full Code
Anticipated Discharge: 24 - 48 hours
Subjective/Interval History
-
Date of Service: January 24, 2024
Persistent headache which is like a band around the head starting in the frontal area. Mild photophobia.
No nausea vomiting.
Objective Data
-
Labs:
Laboratory Results
01/24/24
05:50
WBC 7.6
Hgb 11.2 L
Hct 33.8 L
Plt Count 200
Sodium 139
Potassium 4.7
Chloride 108 H
Carbon Dioxide 23
BUN 26 H
Creatinine 0.7
Glucose 169 H
Calcium 9.1
Vital Signs:
Vital Signs
Temp Pulse Resp BP Pulse Ox
98.4 F 84 21 103/74 98
01/24/24 08:11 01/24/24 08:11 01/24/24 08:11 01/24/24 08:11 01/24/24 08:11
I&O
01/23/24 01/24/24 01/25/24
06:59 06:59 06:59
Intake Total 480 / 480
Balance 480 / 480
Review of Systems
-
Respiratory: Denies Trouble Breathing
Cardiac: Denies Chest Pain
Neuro: Denies Weakness, Numbness, Ataxia or Tremors
Physical Exam
-
General: No Apparent Distress
HEENT: Moist Mucous Membranes
Respiratory: Non Labored Respirations; Negative Accessory Resp Muscle Use
Cardiac: Regular Rhythm and S1/S2
Neuro: AO x 3, No Motor Deficits and Other (No scalp tenderness); Negative Tremors, Slurred Speech or Facial Droop
Psych: Calm
Data Reviewed
-
Labs: Labs Reviewed by me
[2024-01-24 11:17] LABS: Ferritin 43.3 ng/ml (11.1-264.0)
[2024-01-24 11:40] LABS: Free T4 1.08 ng/dl (0.78-2.19)
[2024-01-24 11:48] LABS: Folate > 20.0 ng/ml (2.76-20)
[2024-01-24] MEDS: COZAAR 50 MG PO ×2 (12:27→20:31)
[2024-01-24 12:46] LABS: Vitamin B12 362 pg/ml (239-931)
[2024-01-24 14:24] LABS: Glucose - Point of Care 237 mg/dl (70-99)
[2024-01-24] MEDS: NOVOLOG FLEXPEN-LOW RESISTANCE 2 UNITS SC ×2 (14:27→18:27)
--- NOTE | 2024-01-24 16:47 | CM ---
truck service manager reviewed patient's chart and met with patient and patient is visiting her daughter and her family from [place], patient reports she is independent with adl's and uses a cane or walker with ambulation, patient was admitted under [facility]
letter provided to patient, patient did not sign. Patient has a prescription plan and uses [facility] pharmacy.
Plan; Home with daughter and then plan is to return to [place].
[2024-01-24 18:12] LABS: Glucose - Point of Care 230 mg/dl (70-99)
[2024-01-24] MEDS: LIPITOR 80 MG PO (18:28)
[2024-01-24] MEDS: COREG 25 MG PO (20:31)
[2024-01-24 21:54] LABS: Glucose - Point of Care 263 mg/dl (70-99)
[2024-01-25] VITALS (8 sets, daily range): BP systolic 99–165; BP diastolic 61–93
[2024-01-25] MEDS: TORADOL 15 MG IV (07:23)
[2024-01-25] MEDS: VITAMIN B1 100 MG PO (07:23)
[2024-01-25] MEDS: ASPIR LOW (ENTERIC COATED) 81 MG PO (07:23)
[2024-01-25] MEDS: COZAAR 50 MG PO ×2 (07:23→20:22)
[2024-01-25] MEDS: COREG 25 MG PO ×2 (07:23→20:22)
[2024-01-25 07:57] LABS: Glucose - Point of Care 169 mg/dl (70-99)
--- NOTE | 2024-01-25 08:11 | W.PN.NEURO.1 ---
Addendum entered and electronically signed by Andrey Basurto MD 01/25/24 12:26:
I saw and evaluate the patient I reviewed the note by Faby Abad agree to find the following comments:
83-year-old woman presented to hospital with significant headache jaw discomfort and fatigue. No previous history of headaches in any pattern like migraine headaches. Patient feels like headache is little bit improved but still has significant
nausea, headache going on for around 3 days.
Neurologic examination shows no deficits NIH stroke scale of 0
MRI brain reviewed showing acute infarct in the right thalamus
CTA of the head and neck with small amount of cavernous intracranial carotid plaque without significant stenosis no significant carotid stenosis in the neck and no occlusions
Assessment: Migraine type of headache very likely triggered by the stroke which can occasionally manifest in such a manner.
Stroke etiology is most likely small vessel disease given characteristic size and location and mass along with risk factors of hypertension hyperlipidemia and obesity
Recommendations
-Would start on DAPT therapy 21 days of aspirin and Plavix and then after 21 days stop aspirin and continue on clopidogrel
-Give 1 dose IV metoclopramide now
-Tylenol 1000 mg 4 times daily for the next 2 to 3 days
-Give 1 dose IV valproic acid now and 60 mg IV methylprednisolone now for further headache relief
-Increase to atorvastatin 80 mg daily for LDL control goal less than 70
Original Note:
Documented by User: Faby Rodriguez NP 01/25/24 11:59
Today's Communication / Plan
-
.
Neuro Assessment/Plan
Assessment
This is an 83-year-old female who presented to on 01/23/24 with report of severe headache, jaw discomfort, and fatigue. She was not a candidate for TNK/IAT due to unclear diagnosis, NIHSS 0.
-CT Head 01/23/24: There are no acute intracranial abnormalities. There is moderate diffuse cortical atrophy with mild nonspecific white matter changes as described above.
-CTA Head/Neck 01/23/24: There are no acute abnormalities. There is small volume partially calcific atherosclerotic plaque at the cavernous and supraclinoid portions of both internal carotid arteries without significant associated stenosis.
-MRI brain 01/24/24: Small acute lacunar infarct in the right thalamus.
I. Small acute right thalamic lacunar infarct. Etiology likely small vessel disease.
II. Intractable migraine without aura, likely triggered by acute stroke.
Plan
-Provide Plavix 300mg x1 now. Continue DAPT with aspirin 81mg and Plavix 75mg daily for 21 days, after 21 days continue aspirin 81mg daily only, indefinitely.
-Goal normotension.
-TTE pending.
-Provide metoclopramide 10mg IV x1 now for headache, may continue this daily PRN if needed.
-Provide Depakote 1000mg IV x1 and methylprednisolone 60mg IV x1 now for headache.
-Tylenol 1000mg q6hrs scheduled for 2-3 days for headache relief.
-Discontinue Toradol.
-LDL goal <70. LDL is 127. Home pravastatin 40mg daily changed to atorvastatin 80mg daily.
-Goal normoglycemia, hbA1c is 9.0.
-Neurological checks per unit guidelines.
-Provide patient with a stroke education packet.
-DVT prophylaxis.
-Patient should follow-up as an outpatient with her Neurologist in [place] or with Neurology, may see the DENTAL CHAIR ASSEMBLER or one of the physicians.
Subjective/Objective
Subjective Data
Date of Service: January 25, 2024
No acute events overnight. Patient reports that her headache was improved yesterday but is back today and is a 7/10 pressure on the top of her head and behind bilateral eyes. She notes phonophobia, nausea, and one episode of vomiting last evening.
Her vision also feels blurry. She denies any dizziness, speech/swallow difficulty, numbness, weakness, chest pain, palpitations, and shortness of breath.
Objective Data
Vital Signs
Temp Pulse Resp BP Pulse Ox
97.4 F 71 18 154/85 96
01/25/24 03:58 01/25/24 07:23 01/25/24 03:58 01/25/24 07:23 01/25/24 03:58
Lab Results
01/24/24 05:50
01/24/24 05:50
Sodium 139 mmol/L (135-145) 01/24/24 05:50
Potassium 4.7 mmol/L (3.5-5.1) 01/24/24 05:50
BUN 26 mg/dl (7-17) H 01/24/24 05:50
Glucose 169 mg/dl (70-99) H 01/24/24 05:50
Calcium 9.1 mg/dl (8.4-10.2) 01/24/24 05:50
LDL Cholesterol, Calc 127 mg/dl 01/24/24 05:50
Vitamin B12 362 pg/ml (239-931) 01/24/24 05:50
Patient Allergies
codeine Allergy (Verified 07/09/20 17:23)
Hives
Penicillins Allergy (Verified 07/09/20 17:23)
Hives
Sulfa (Sulfonamide Antibiotics) Allergy (Verified 07/09/20 17:23)
Really sick
LDL Level: Statin dose adjusted
Review of Systems
-
History Source: Patient
EENT: Blurry Vision; Negative Decreased Vision or Swallowing Difficulty
Respiratory: Negative Cough or Trouble Breathing
Cardiac: Negative Chest Pain or Palpitations
Abdomen/GI: Nausea and Vomiting
Neuro: Headache; Negative Dizzy, Weakness, Numbness, Ataxia, Tremors or Speech Problem
Physical Exam
-
General: Well Developed, Well Nourished and No Apparent Distress
Eyes: No Ptosis and PERRLA
HEENT: Normocephalic and Atraumatic
Neck: Full Range of Motion
Respiratory: No Dyspnea
GI: Non-distended
Skin: Warm and Dry
Extremities: No Clubbing, No Cyanosis and No Edema
Psych: Anxious
Extended Neurological Exam
Mood & Affect: Anxious
Attention Span & Concentration: Awake, Alert and Interactive
Memory: Unremarkable (AAOx3) and Able to Recall
Tremor: Hand Tremor Absent and Head Tremor Absent
Involuntary Movement: None
Speech: Quality Unremarkable, Quantity Unremarkable and Rate of Production Unremarkable
Cranial Nerve II: Left Eye: Pupillary Reactivity Unremarkable, Pupillary Size Unremarkable and Visual Cole Intact
Cranial Nerve II: Right Eye: Pupillary Reactivity Unremarkable, Pupillary Size Unremarkable and Visual Cole Intact
Cranial Nerves III, IV, : Extraocular Movement: Extraocular Movement Full in all Directions
Cranial Nerve V: Facial Sensation: Intact to Light Touch
Cranial Nerve VII: Facial Symmetry: Normal Facial Symmetry
Cranial Nerve VIII: Hearing: Unremarkable Hearing to Normal Conversational Volume
Cranial Nerves IX, X: Palate Movement: Palate Elevation Symmetric
Cranial Nerve XI: Shoulder Shrug: Unremarkable
Cranial Nerve XII: Tongue Protusion: Midline
Muscle Strength, Overall: Full Throughout
Muscle Bulk & Tone: Bulk Unremarkable and Tone Unremarkable
Pronator Drift: No Drift in Upper Extremities and No Drift in Lower Extremities
Cold Sensation: Unremarkable
Vibration Sensation: Reduced Moderately Distally
Touch Sensation: Double Simultaneous Stimulation Unremarkable
Coordination: [id number] Testing Unremarkable
Babinski Sign: Absent Bilaterally
Modified Peach Score (MRS)
-
Modified Peach Scale (mRS): No significant disability. Able to carry out usual activities.
Score: 1
Data Reviewed
-
CT-A: Report Reviewed and Image Reviewed
CT Head: Report Reviewed and Image Reviewed
MRI Head: Report Reviewed and Image Reviewed
Labs: Report Reviewed
Lipid Profile: Report Reviewed
HgbA1C: Report Reviewed
Reviewed with: Physician and Patient
Medications
-
Active Medications
Generic Name Dose Route Start Last Admin
Trade Name Freq PRN Reason Stop Dose Admin
Acetaminophen 1,000 mg 01/25/24 12:00 01/25/24 10:42
Acetaminophen 500 Mg Tablet PO 01/27/24 12:01 1,000 mg
Q6 DAMARIS Administration
Aspirin 81 mg 01/24/24 08:00 01/25/24 07:23
Aspirin 81 Mg (Enteric Coated) Tablet PO 02/21/24 07:59 81 mg
DAILY DAMARIS Administration
Atorvastatin Calcium 80 mg 01/24/24 18:00 01/24/24 18:28
Atorvastatin (Lipitor) 80 Mg Tablet PO 02/21/24 17:59 80 mg
QPM DAMARIS Administration
Carvedilol 25 mg 01/23/24 21:34 01/25/24 07:23
Carvedilol 25 Mg Tablet PO 02/20/24 21:33 25 mg
BID DAMARIS Administration
Clopidogrel Bisulfate 75 mg 01/26/24 08:00
Clopidogrel 75 Mg Tablet PO 02/16/24 07:59
DAILY DAMARIS
Dextrose 12.5 grams 01/23/24 21:34
Dextrose 50% (0.5 Grams/Ml) 50 Ml Syringe IV 02/20/24 21:33
[id number] PRN
hypoglycemia
Protocol
Glucagon 1 mg 01/23/24 21:34
Glucagon 1 Mg Vial IM 02/20/24 21:33
PRN PRN
hypoglycemia
Protocol
Valproate Sodium 1,000 mg/ 60 mls @ 60 mls/hr 01/25/24 11:08 01/25/24 11:45
Sodium Chloride IV 01/25/24 12:07 60 mls
NOW STA Administration
Insulin Aspart 0 units 01/24/24 07:30 01/25/24 09:23
Insulin Aspart Low Resistance 300 Units/3 Ml Pen.Injctr SC 02/21/24 07:29 1 units
AC DAMARIS Administration
Protocol
Losartan Potassium 50 mg 01/23/24 21:34 01/25/24 07:23
Losartan 50 Mg Tablet PO 02/20/24 21:33 50 mg
BID DAMARIS Administration
Sodium Chloride 0 flush 01/23/24 22:00
Sodium Chloride 0.9% (Flush) Syringe IV 02/20/24 21:59
PER PROTOCOL DAMARIS
Thiamine HCl 100 mg 01/24/24 10:00 01/25/24 07:23
Thiamine 100 Mg Tablet PO 01/26/24 08:01 100 mg
DAILY DAMARIS Administration
Home Medications
�Medication �Instructions �Recorded
aspirin 81 mg tablet,delayed 81 mg PO DAILY Blood Clot 01/23/24
release Prevention/Tx
carvedilol 25 mg tablet (Coreg) 25 mg PO BID Heart Failure 01/23/24
losartan 50 mg tablet 50 mg PO BID Blood Pressure 01/23/24
nitroglycerin 0.4 mg sublingual 0.4 mg sublingual [id number] PRN 01/23/24
tablet (Nitrostat) chest pain
pravastatin 40 mg tablet 40 mg PO HS High Cholesterol 01/23/24
therapeutic multivitamin 1 tab PO DAILY Supplement 01/23/24
NIH Stroke Score
Subsequent NIH Scale
Date of Subsequent NIH Scale: 01/25/24
Time of Subsequent NIH Scale: 09:00
NIH Stroke Score
Level of Consciousness: 0 - Alert
LOC Questions: 0-Answers both correctly
LOC Commands: 0-Performs both correctly
Best Horizontal Gaze: 0-Normal
Visual Cole: 0=Normal, no visual loss
Facial Palsy: 0=Normal, symmetrical
Motor - Right Arm: 0=No drift 10 seconds
Motor - Left Arm: 0=No drift 10 seconds
Motor - Right Le-No drift 5 seconds
Motor - Left Le-No drift 5 seconds
Limb Ataxia: 0-Absent
Sensation: 0-Normal
Best Language: 0-No aphasia
Dysarthria: 0-Normal
Extinction and Inattention: 0-No abnormality
Total Score:: 0
Modified Peach (mRS) Score
Modified Peach Scale (mRS): No significant disability. Able to carry out usual activities.
Score: 1

Documented by User: Andrey Basurto MD 01/25/24 12:23
Modified Nixon Score (MRS)
-
Score: 1
NIH Stroke Score
NIH Stroke Score
Total Score:: 0
Modified Nixon (mRS) Score
Score: 1
[2024-01-25] MEDS: NOVOLOG FLEXPEN-LOW RESISTANCE 1 UNITS SC (09:23)
[2024-01-25] MEDS: REGLAN 10 MG IV (10:42)
[2024-01-25] MEDS: PLAVIX 300 MG PO (10:42)
[2024-01-25] MEDS: TYLENOL 1000 MG PO ×2 (10:42→17:46)
[2024-01-25] MEDS: SOLU-MEDROL PF 60 MG IV (11:45)
[2024-01-25] MEDS: DEPACON 60 MG IV (11:45)
[2024-01-25 12:35] LABS: Glucose - Point of Care 210 mg/dl (70-99)
[2024-01-25] MEDS: NOVOLOG FLEXPEN-LOW RESISTANCE 2 UNITS SC (12:57)
--- NOTE | 2024-01-25 14:04 | PTCARENOTE ---
pt aaox3. states 5/10 headache this morning. pain med given as ordered. pt using walker to get to bathroom self. room air breath sounds clear. nihss done with shift nurse manager rn 1 for decreased sensation in right side.
--- NOTE | 2024-01-25 14:25 | W.PN.HOSP.TC ---
Today's Communication/Plan
-
see plan above
Assessment / Plan
Assessment / Plan
Intractable Headache-initially suspected primary headache but with acute infarct in the right thalamus which is a pain receptive site suspect this may be all secondary to stroke.
Neurology input regarding etiology noted-suspected atherosclerotic. Continue to modify risk factors including optimizing blood sugars.
Started on dual antiplatelet agent and symptomatic treatment for headache.Increased dose of statins.
Coronary Artery Disease
-Continue aspirin
Essential Hypertension
-Continue carvedilol and losartan with hold parameters. Add amlodipine starting tomorrow if BP not under goal
Hyperlipidemia
-Continue pravastatin -increase the dose
Diabetes Mellitus, Type II
- HgbA1c 9.0
- Diet controlled
- With acute stroke of small vessel dz need now agressive tx .
- will start on Metformin and HS lantus
- Consult diabetic LGSW
DVT proph: SCDs
Code Status: Full Code
DW neuro today
Anticipated Discharge: 24 - 48 hours
Subjective/Interval History
-
Date of Service: January 25, 2024
Some improvement in headache. No new symptoms.
Objective Data
-
Vital Signs:
Vital Signs
Temp Pulse Resp BP Pulse Ox
98.0 F 78 18 161/83 96
01/25/24 11:00 01/25/24 11:00 01/25/24 11:00 01/25/24 11:00 01/25/24 11:00
I&O
01/24/24 01/25/24 01/26/24
06:59 06:59 06:59
Intake Total 480 / 480 1660 / 1660
Balance 480 / 480 1660 / 1660
Review of Systems
-
Constitutional: Denies Fever
Respiratory: Denies Trouble Breathing
Cardiac: Denies Chest Pain or Palpitations
Abdomen/GI: Denies Nausea
Neuro: Denies Dizzy
Physical Exam
-
General: No Apparent Distress
HEENT: Moist Mucous Membranes
Respiratory: Clear to Auscultation
Cardiac: Regular Rhythm and S1/S2
Neuro: AO x 3 and No Motor Deficits
Psych: Calm; Negative Confused or Agitated
Data Reviewed
-
Labs: Labs Reviewed by me
--- NOTE | 2024-01-25 14:49 | PN.DE.MGMTRT ---
Insulin Management
- -
01/25/2024: Diabetes Management Consult
83 year old female with PMH: HTN, HLD, CVA, CAD, atrial septal defect, Asthma, GERD, chronic pancreatitis and T2DM. A1C 9%, Cr 0.7, eGFR >60. Admitted with severe headache and jaw pain due to Acute CVA, MRI-->Right thalamic acute ischemic stroke.
Pt is a poor historian, reports seeing Endocrine- Dr. Helton for her diabetes care but chart review indicates she just relocated from [place].
Pt states that she was taking Metformin 500 mg BID (recently discontinued due to chronic pancreatitis) and another diabetes injectable medication, pt could not provided name of medication and how often she was taking it. She was apparently in
process of transitioning to an insulin pump but she is unable to provide any specific details.
Pt awake, A/O x2-3, resting in bed in no acute discomfort, able to participate in discussion regarding diabetes management
Current diabetes regimen includes: Metformin 1000 mg BID, Lantus 12 units @ HS, 1st dose scheduled for tonight and low corrective with meals
Premeal Glucose range 169 to 263, requiring 1-3 units of corrective insulin.
Will cont with current ordered dose of Lantus.
STOP Metformin. Start NovoLog 6 units AC. cont low corrective with meals. Change diet to 1800 sana
Will follow up with Endo office tomorrow to clarify specific OP regimen
Diabetes History
- -
Type of Diabetes: 2 requiring insulin
Pre-Admission Diabetes Regimen
Lab Results
Hemoglobin A1c 9.0 % (4.0-5.6) H 01/24/24 05:50
Insulin Pump Settings
IP Diabetes Regimen
01/24/24 01/24/24 01/25/24
18:11 21:42 07:52
POC Glucose 230 H 263 H 169 H
01/25/24
12:05
POC Glucose 210 H
Meal type: Breakfast
Meal type: Dinner
Amount consumed: 95%
Amount consumed: 100%
Patient Education
--- NOTE | 2024-01-25 15:52 | CM ---
Chart reviewed and patient has switched to inpatient, IMM provided to patient. Patient was seen by physical therapy and recommendation is for homecare. tax accounting manager will follow up with patient and daughter, regarding services at home.
Plan; Home with daughter when stable.
[2024-01-25 17:46] LABS: Glucose - Point of Care 268 mg/dl (70-99)
[2024-01-25] MEDS: LIPITOR 80 MG PO (17:46)
[2024-01-25] MEDS: NOVOLOG FLEXPEN-LOW RESISTANCE 3 UNITS SC (17:47)
[2024-01-25] MEDS: NOVOLOG FLEXPEN 6 UNITS SC (17:47)
[2024-01-25 21:57] LABS: Glucose - Point of Care 383 mg/dl (70-99)
[2024-01-25] MEDS: LANTUS 0.119999999999999996 UNITS SC (22:00)
[2024-01-26] MEDS: TYLENOL PO ×2 (00:42→00:44)
--- NOTE | 2024-01-26 00:44 | PTCARENOTE ---
Addendum entered by Eulalia Aden RN 01/26/24 00:46:
Patient woken up for neuro checks but rolled immediately back over to sleep and continued to refuse Tylenol at this time.
Original Note:
Patient stated during HS med pass, that if she was sleeping, she did not want to be woken up for 12 am Tylenol. Patient sleeping at 12 am and continues to be sleeping at current time.
[2024-01-26 04:00] VITALS: BP 173/89
[2024-01-26] MEDS: TYLENOL 1000 MG PO ×3 (06:05→17:43)
[2024-01-26 07:00] VITALS: BP 133/93
[2024-01-26 08:03] LABS: Glucose - Point of Care 177 mg/dl (70-99)
[2024-01-26] MEDS: NOVOLOG FLEXPEN 6 UNITS SC (09:18)
[2024-01-26] MEDS: COREG 25 MG PO ×2 (09:19→20:05)
[2024-01-26] MEDS: VITAMIN B1 100 MG PO (09:19)
[2024-01-26] MEDS: NOVOLOG FLEXPEN-LOW RESISTANCE 1 UNITS SC (09:19)
[2024-01-26] MEDS: PLAVIX 75 MG PO (09:19)
[2024-01-26] MEDS: ASPIR LOW (ENTERIC COATED) 81 MG PO (09:19)
[2024-01-26 11:00] VITALS: BP 163/79
--- NOTE | 2024-01-26 11:04 | W.PN.HOSP.TC ---
Today's Communication/Plan
-
Treat constipation
Continue dual antiplatelet therapy as outlined by neurology
Continue treatment for her headache with combination of acetaminophen and metoclopramide
Await nurse practitioner to confer with endocrinology as to her discharge plan for her diabetic management once that is done can coordinate a discharge plan for tomorrow
Assessment / Plan
Assessment / Plan
Intractable Headache-initially suspected primary headache but with acute infarct in the right thalamus which is a pain receptive site suspect this may be all secondary to stroke.
Neurology input regarding etiology noted-suspected atherosclerotic. Continue to modify risk factors including optimizing blood sugars.
Started on dual antiplatelet agent and symptomatic treatment for headache.Increased dose of statins. Continue acetaminophen and as needed Reglan
Coronary Artery Disease
-Continue aspirin
Essential Hypertension
-Continue carvedilol and losartan with hold parameters. Add amlodipine starting tomorrow if BP not under goal
Hyperlipidemia
-Continue pravastatin -increase the dose
Diabetes Mellitus, Type II
- HgbA1c 9.0
- Diet controlled
- With acute stroke of small vessel dz need now agressive tx .
- Consult diabetic EDUCATION ASSISTANT /will continue on Lantus 12 units and 6 units of Humalog/will confer with her manager agency in the next 24 hours for rate discharge plan
Constipation
-Colace twice daily
-Senokot tonight
DVT proph: SCDs
Code Status: Full Code
DW neuro today
Anticipated Discharge: Within 24 hours
Subjective/Interval History
-
Date of Service: January 26, 2024
Still with some intermittent shooting type of headache going from her right ear into her [facility].
Objective Data
-
Vital Signs:
Vital Signs
Temp Pulse Resp BP Pulse Ox
98.0 F 64 18 133/93 98
01/26/24 07:00 01/26/24 07:00 01/26/24 07:00 01/26/24 07:00 01/26/24 07:00
I&O
01/25/24 01/26/24 01/27/24
06:59 06:59 06:59
Intake Total 1660 / 1660 720 / 720
Balance 1660 / 1660 720 / 720
Review of Systems
-
History Source: Patient and Family
Constitutional: Reports No Symptoms
EENT: Denies Blurry Vision
Cardiac: Reports No Symptoms
Abdomen/GI: Reports No Symptoms
Neuro: Reports Headache (Right-sided intermittent)
Physical Exam
-
General: Well Developed
HEENT: Normocephalic
Respiratory: Clear to Auscultation
Cardiac: Regular Rhythm
Musculoskeletal: No Clubbing
Skin: Warm
Neuro: Awake, Alert and Oriented
Psych: Calm
Data Reviewed
-
Total Time Spent with Patient (in minutes): 45
Labs: Labs Reviewed by me
[2024-01-26 11:58] LABS: Glucose - Point of Care 204 mg/dl (70-99)
[2024-01-26 12:02] VITALS: BP 163/79; PULSE 69; O2SAT 95
--- NOTE | 2024-01-26 12:15 | PN.DE.MGMTRT ---
Insulin Management
- -
:
01/26/2024: Diabetes Management Consult Follow up
Patient admitted with severe headache and jaw pain due to Acute CVA, MRI-->Right thalamic acute ischemic stroke. PMH: HTN, HLD, CVA, CAD, atrial septal defect, Asthma, GERD, chronic pancreatitis and T2DM. A1C 9%, Cr 0.7, eGFR >60.
Pt is a poor historian, reports seeing Endocrine- Dr. Helton for her diabetes care but chart review indicates she just relocated from [place].
Pt states that she was taking Metformin 500 mg BID (recently discontinued due to chronic pancreatitis) and another diabetes injectable medication, pt could not provided name of medication and how often she was taking it. She was apparently in
process of transitioning to an insulin pump but she is unable to provide any specific details.
Pt awake, A/O x2-3, resting in bed in no acute discomfort, able to participate in discussion regarding diabetes management. Today she states that she resides in [place] but travels here to see Dr. Helton who was going to start her on a CGM not a
pump.
6/5 Premeal Glucose range 169 to 383, received 6 units novolog with dinner, hs glucose 383.requiring 1-3 units of corrective insulin. Received 12 units lantus @ hs, fasting this AM 177, pre lunch 204.
Will continue lantus 12 units @ hs will increase AC novolog to 8 units with corrective insulin
Patient does have a glucose monitor, has not started CGM due to issue with her phone.
Will follow
Diabetes History
- -
Type of Diabetes: 2
Pre-Admission Diabetes Regimen
Lab Results
Hemoglobin A1c 9.0 % (4.0-5.6) H 01/24/24 05:50
Insulin Pump Settings
IP Diabetes Regimen
01/25/24 01/25/24 01/25/24
12:05 17:45 21:56
POC Glucose 210 H 268 H 383 H
01/26/24 01/26/24
08:01 11:58
POC Glucose 177 H 204 H
Meal type: Lunch
Meal type: Breakfast
Amount consumed: 100%
Amount consumed: 95%
Patient Education
[2024-01-26] MEDS: SENOKOT-S 1 TABLET PO (12:36)
[2024-01-26] MEDS: COZAAR 50 MG PO ×2 (12:36→20:05)
[2024-01-26] MEDS: NOVOLOG FLEXPEN 8 UNITS SC ×2 (12:37→17:46)
[2024-01-26] MEDS: NOVOLOG FLEXPEN-LOW RESISTANCE 2 UNITS SC (12:37)
[2024-01-26] MEDS: NOVOLOG FLEXPEN SC (12:46)
--- NOTE | 2024-01-26 13:48 | CM ---
commercial real estate manager reviewed patient's chart and spoke with patient regrading home health and she is not sure about home health, she had them in the past and since she is only staying with her daughter for a short time is not sure she will need them.
Plan; Home with daughter, patient may not agree to home care.
[2024-01-26 15:00] VITALS: BP 136/59
[2024-01-26] MEDS: GLUCOPHAGE 1000 MG PO (17:42)
[2024-01-26] MEDS: LIPITOR 80 MG PO (17:42)
[2024-01-26 17:46] LABS: Glucose - Point of Care 117 mg/dl (70-99)
[2024-01-26] MEDS: NOVOLOG FLEXPEN-LOW RESISTANCE SC (17:46)
[2024-01-26] MEDS: COLACE 100 MG PO (20:05)
[2024-01-26 21:17] LABS: Glucose - Point of Care 79 mg/dl (70-99)
[2024-01-26 22:15] LABS: Glucose - Point of Care 95 mg/dl (70-99)
[2024-01-26] MEDS: LANTUS 0.119999999999999996 UNITS SC (22:17)
[2024-01-26 23:35] VITALS: BP 151/84
[2024-01-27] MEDS: TYLENOL PO ×2 (00:43→12:22)
[2024-01-27 07:00] VITALS: BP 157/90
--- NOTE | 2024-01-27 07:42 | PN.DE.MGMTRT ---
Addendum entered and electronically signed by BRANDY Barraza 01/27/24 14:18:
Pt with Hx of Chronic Pancreatitis, not a candidate for SGLT2. Will STOP Farxiga.
Cont Lantus 12 units @HS, Metformin 1000 mg BID and Januvia 100mg daily at discharge
Original Note:
Insulin Management
- -
01/27/2024: Diabetes Management F/U:
Patient admitted with severe headache and jaw pain due to Acute CVA, MRI-->Right thalamic acute ischemic stroke. PMH: HTN, HLD, CVA, CAD, atrial septal defect, Asthma, GERD, chronic pancreatitis and T2DM. A1C 9%, Cr 0.7, eGFR >60.
Pt is a poor historian, reports seeing Endocrine- Dr. Helton for her diabetes care but chart review indicates she just relocated from [place].
Pt states that she was taking Metformin 500 mg BID (recently discontinued due to chronic pancreatitis) and another diabetes injectable medication, pt could not provided name of medication and how often she was taking it. She was apparently in
process of transitioning to an insulin pump but she is unable to provide any specific details.
Pt awake, A/O x2-3, resting in bed in no acute discomfort, able to participate in discussion regarding diabetes management.
On 01/25 Pt stated that she resides in [place] but travels here to see Dr. Helton who was going to start her on a CGM not a pump.
AC NovoLog was increased to 8 units yesterday. Glucose improved to Premeal range of 117 to 204.
Pt received 8 units NovoLog with dinner, HS glucose 79. Received 12 units Lantus @ HS, FBG this AM 106.
Pt states she will not be able to self adm insulin 4 times a day, she was hoping that insulin was temporary. Discussed current A1C, average blood sugar, need for chronic use of insulin and emphasized adherence to diabetes regimen to avoid fdc
diabetes related complications.
Will STOP AC NovoLog and switch to oral meds. Continue Lantus 12 units @ hs with corrective insulin.
Pt not a candidate for PUCKETT due to sulfa allergy. Start Januvia 100mg daily, 1 dose NOW. Start Farxiga 10mg daily, 1st dose now.
Patient does have a glucose monitor, has not started CGM due to issue with her phone.
Will provide pt with insulin instructions for Lantus 12 units @ HS and instructions for glucose monitor use at home.
Diabetes plan of care d/w pt and Nurse
Diabetes History
- -
Type of Diabetes: 2 requiring insulin
Pre-Admission Diabetes Regimen
Lab Results
Hemoglobin A1c 9.0 % (4.0-5.6) H 01/24/24 05:50
Insulin Pump Settings
IP Diabetes Regimen
01/26/24 01/26/24 01/26/24
08:01 11:58 17:45
POC Glucose 177 H 204 H 117 H
01/26/24 01/26/24
21:10 22:14
POC Glucose 79 95
Meal type: Dinner
Meal type: Lunch
Meal type: Breakfast
Amount consumed: 100%
Amount consumed: 100%
Amount consumed: 100%
Patient Education
[2024-01-27 07:44] LABS: Glucose - Point of Care 107 mg/dl (70-99)
[2024-01-27] MEDS: NOVOLOG FLEXPEN-LOW RESISTANCE SC ×2 (08:12→12:21)
[2024-01-27] MEDS: TYLENOL 1000 MG PO (08:13)
[2024-01-27] MEDS: COREG 25 MG PO (08:13)
[2024-01-27] MEDS: ASPIR LOW (ENTERIC COATED) 81 MG PO (08:13)
[2024-01-27] MEDS: PLAVIX 75 MG PO (08:14)
[2024-01-27] MEDS: COLACE 100 MG PO (08:14)
[2024-01-27] MEDS: GLUCOPHAGE 1000 MG PO (08:14)
[2024-01-27] MEDS: COZAAR 50 MG PO (08:14)
[2024-01-27] MEDS: NOVOLOG FLEXPEN SC (08:15)
[2024-01-27 09:30] VITALS: BP 180/95
[2024-01-27] MEDS: JANUVIA 100 MG PO (09:51)
[2024-01-27] MEDS: FARXIGA 10 MG PO (09:51)
--- NOTE | 2024-01-27 10:24 | W.DS.TRANS ---
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
-
Discharge Instructions:
Discharge Diagnosis/Procedures Acute CVA(thalamic)
Diet No restrictions
Activity No restrictions
Other Services [facility]
Instructions:
Stand-Alone Forms:
Changes to Home Medications: Yes
Discharge Medications:
DC Medications w/original date entered in [facility]
aspirin 81 mg tablet,delayed release 81 mg PO DAILY Blood Clot Prevention/Tx 01/23/24
carvedilol 25 mg tablet (Coreg) 25 mg PO BID Heart Failure 01/23/24
nitroglycerin 0.4 mg sublingual tablet (Nitrostat) 0.4 mg sublingual [id number] PRN chest pain 01/23/24
therapeutic multivitamin 1 tab PO DAILY Supplement 01/23/24
atorvastatin 80 mg tablet 80 mg PO QPM #30 tabs 01/27/24
blood sugar diagnostic (Contour Next Test Strips) #60 ea 01/27/24
dapagliflozin propanediol 5 mg tablet (Farxiga) 10 mg (2 x 5 mg) PO DAILY Diabetes 30 days #60 tabs 01/27/24
insulin glargine 100 unit/mL (3 mL) subcutaneous pen (Basaglar KwikPen U-100 Insulin) 12 unit (0.12 mL) SC DAILY Diabetes #5 ea 01/27/24
lancets (Microlet Lancet) #60 ea 01/27/24
losartan 50 mg tablet 100 mg (2 x 50 mg) PO BID #60 tabs 01/27/24
metformin 1,000 mg tablet 1,000 mg PO BID@0800,1700 Diabetes #60 tabs 01/27/24
metoclopramide HCl 5 mg tablet (Reglan) 5 mg PO AC For intractable headache #10 tabs 01/27/24
pen needle, diabetic 32 gauge x ' (BD Ultra-Fine Kourtney Pen Needle) #60 ea 01/27/24
sitagliptin phosphate 100 mg tablet (Januvia) 100 mg PO DAILY #30 tabs 01/27/24
Home Medication Changes
therapeutic multivitamin 1 tab PO DAILY Supplement 01/23/24
atorvastatin 80 mg tablet 80 mg PO QPM #30 tabs 01/27/24
blood sugar diagnostic (Contour Next Test Strips) #60 ea 01/27/24
dapagliflozin propanediol 5 mg tablet (Farxiga) 10 mg (2 x 5 mg) PO DAILY Diabetes 30 days #60 tabs 01/27/24
insulin glargine 100 unit/mL (3 mL) subcutaneous pen (Basaglar KwikPen U-100 Insulin) 12 unit (0.12 mL) SC DAILY Diabetes #5 ea 01/27/24
lancets (Microlet Lancet) #60 ea 01/27/24
losartan 50 mg tablet 100 mg (2 x 50 mg) PO BID #60 tabs 01/27/24
metformin 1,000 mg tablet 1,000 mg PO BID@0800,1700 Diabetes #60 tabs 01/27/24
metoclopramide HCl 5 mg tablet (Reglan) 5 mg PO AC For intractable headache #10 tabs 01/27/24
pen needle, diabetic 32 gauge x /32' (BD Ultra-Fine Kourtney Pen Needle) #60 ea 01/27/24
sitagliptin phosphate 100 mg tablet (Januvia) 100 mg PO DAILY #30 tabs 01/27/24
Pending Results: No
Total time spent discharging patient (in min): 38
[2024-01-27 10:52] VITALS: BP 179/83; PULSE 64
--- NOTE | 2024-01-27 11:08 | CM ---
Addendum entered by Anneliese Del Toro 01/27/24 14:58:
Patient is now agreeable to visiting nurses options reviewed and patient selected [facility].
Original Note:
Home today no needs, daughter to transport patient to home at 2pm.
Plan; Home today with daughter at 2pm.
--- NOTE | 2024-01-27 11:20 | W.DCSUMMARY ---
Discharge Summary
Discharge Data
Date of Admission: 01/25/24
Date of Discharge: 01/27/24
-
Pending Results: No
Hospital Course
83-year-old female patient who presented on date of admission 23 January 2024 with a severe headache and jaw pain. She had a prior history of coronary artery disease hypertension hyperlipidemia diabetes mellitus. She reported the headache lasting a
few days prior to presentation and rating into the bilateral areas of her jaw and associated at times also with neck pain CT of the head was negative and also CT angiography of the head and neck neurology was consulted
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
discussed by neurology felt that the migraine type of headache very likely triggered by the stroke. She was placed on intense dose of statin to replace pravastatin and placed on aspirin. It was felt that stroke etiology was most likely small
vessel in origin given characteristics of size and location and mass along with risk factors for hypertension hyperlipidemia and obesity. She was placed on dual antiplatelet therapy for period of 21 days and aspirin thereafter indefinitely
Her intractable headache was treated by neurology with combination of valproic acid and 60 mg IV dose of methylprednisolone with Tylenol 1000 mg 4 times a day for the next 2 to 3 days and she was also given a dosage of IV metoclopramide
Because of the perceived need now for more strict control of her diabetic management nurse practitioner diabetic service saw the patient and added a course of Farxiga 10 mg daily along with Sitagliptin 100 mg daily and Lantus insulin 12 units
nightly metformin will be at 1000 mg twice a day these were all called in with supplies including lancets pen needles and to her pharmacy.
Discharge Plan
-
Patient Disposition: Home (Routine Discharge)
Discharge Diagnosis/Procedures: Acute CVA(thalamic)
Diet: No restrictions
Activity: No restrictions
Other Services: [facility]
Referrals:
NONE,* [Family Provider] -
Additional Discharge Medication Instructions: Have to take aspirin plus clopidogrel for a period of totaling 21 days then stop clopidogrel in favor of aspirin daily thereafter indefinitely
Prescriptions:
New
(DME) Contour Next Test Strips Strip
Qty: 60 0RF
Rx Instructions:
Pt Testing 2 times a day
(DME) lancets [Microlet Lancet] Misc
Qty: 60 0RF
Rx Instructions:
Pt testing 2 times a day
dapagliflozin propanediol [Farxiga] 5 mg tablet
10 mg PO DAILY 30 Days Qty: 60 0RF
Rx Instructions:
Take Once a day in the morning
Januvia 100 mg Tablet
100 mg PO DAILY Qty: 30 0RF
metformin 1,000 mg Tablet
1,000 mg PO BID@0800,1700 Qty: 60 0RF
Rx Instructions:
Ptake twice a day
insulin glargine [Basaglar KwikPen U-100 Insulin] 100 unit/mL (3 mL) Insulin Pen
12 unit SC DAILY Qty: 5 0RF
Rx Instructions:
Take daily at Bedtime
(DME) pen needle, diabetic [BD Ultra-Fine Kourtney Pen Needle] 32 gauge x 5/32' Needle
Qty: 60 0RF
Rx Instructions:
USE DAILY WITH LANTUS AT BEDTIME
losartan 50 mg Tablet
100 mg PO BID Qty: 60 0RF
atorvastatin 80 mg Tablet
80 mg PO QPM Qty: 30 0RF
metoclopramide HCl [Reglan] 5 mg tablet
5 mg PO AC Qty: 10 0RF
clopidogrel 75 mg tablet
75 mg PO DAILY Qty: 20 0RF
Continued
carvedilol [Coreg] 25 mg Tablet
25 mg PO BID
therapeutic multivitamin Tablet
1 tab PO DAILY
aspirin 81 mg Tablet,Delayed Release (Dr/Ec)
81 mg PO DAILY
nitroglycerin [Nitrostat] 0.4 mg Tablet, Sublingual
0.4 mg SUBLINGUAL [id number] PRN (Reason: chest pain)
Discontinued
losartan 50 mg Tablet
50 mg PO BID
pravastatin 40 mg Tablet
40 mg PO HS
Discharge Orders:
Discharge Patient (As Directed); Ordered 01/27/24
Ordered By: Pritesh Rincon
Discharge Date and Time
Print Language: SLOVENIAN
[2024-01-27 12:20] LABS: Glucose - Point of Care 103 mg/dl (70-99)
[2024-01-27 14:15] VITALS: BP 172/90
--- NOTE | 2024-01-27 14:26 | PN.DE ---
Diabetes Education
- -
Met with Pt and Ger Toribio at bedside for monitor and insulin instructions.
Pt was provided with the Contour Next Ez glucometer. Reviewed proper testing technique for obtaining a blood glucose, new testing pattern given BID and expected results as noted in take home education booklet. Discussed action of long acting
insulins as well as symptoms and treatment of hypoglycemia. Aware to check blood glucose fasting and at bedtime then inject Long acting insulin in either abdomen or outer thigh, rotating sites. Aware to store insulin pens that are not in use in the
refrigerator. Instructions with good return demonstration using the glucometer and insulin pen were noted and result of 100 mg/dl 2 hrs after lunch. Discussed importance of checking blood sugars 2x/day to assess food/medication effect on his BS,
reducing CHO intake, and being active. Provided information and handout on insulin administration.
Will need RX for test strips and lancets for the Contour Next Ez glucometer, testing 2x/day, and Lantus as well as pen needles at discharge.
--- NOTE | 2024-01-27 15:31 | VNURNOTE ---
Home Health Liaison spoke with patient's daughter Tiffanie by phone at 1520 to discuss [facility] nurse/therapy, visits, schedule and homebound status. Tiffanie is agreeable and understands that visits at home will be 2-3 x per week to assess and teach
medical management. Patient is going to her daughter's home, address obtained for referral.
Tiffanie is aware that [facility] will contact them for start of care in 1-2 days after discharge from .
[facility] referral completed in [facility].
== END 2024-01-27 15:24 | disposition home or self-care (01) | DRG 66 ==
LOC: 4 WEST ACU 09:08
PROVIDERS: Nurse Practitioner; Physician Assistant Medical; ADMITTING PHYSICIAN Hospitalist; ATTENDING PHYSICIAN Internal Medicine; EMERGENCY PHYSICIAN Emergency Medicine; OTHER PHYSICIAN Psychiatry & Neurology Neurology
DX: I63.9 Cerebral infarction, unspecified (principal); I25.10 Atherosclerotic heart disease of native coronary artery without angina pectoris; I10 Essential (primary) hypertension; E11.9 Type 2 diabetes mellitus without complications; Z79.82 Long term (current) use of aspirin; E78.00 Pure hypercholesterolemia, unspecified; K59.00 Constipation, unspecified
CPT/HCPCS: 70450; 70496; 70498; 70553; 80048; 80053; 80061; 81003; 81015; 82607; 82728; 82746; 82962; 83036; 83735; 84439; 84443; 84484; 85025; 85027; 85652; 86140; 93005; 93306; 96361; 96374; 96375; 97110; 97116; 97162; 97167; 97530; 99285; A9575; Q9967

== ENCOUNTER → 2024-02-15 15:11 | Outpatient (REF) | payer MEDICARE, BC, SELFPAY | LOC: HWRAD 15:11 | PROVIDERS: ATTENDING PHYSICIAN Family Medicine | DX: M54.6 Pain in thoracic spine (principal) | CPT/HCPCS: 71101 ==

== ENCOUNTER → 2024-04-19 15:12 | Outpatient (REF) | payer MEDICARE, BC, SELFPAY | LOC: HWRAD 15:12 | PROVIDERS: ATTENDING PHYSICIAN Student in an Organized Health Care Education/Training Program | DX: R55 Syncope and collapse (principal); M25.512 Pain in left shoulder | CPT/HCPCS: 70450; 73030; 73502 ==

== ENCOUNTER 2024-04-25 02:57 | Inpatient (IN) | payer MEDICARE, BC, SELFPAY ==
[2024-04-24 20:38] VITALS: BP 199/158
[2024-04-24 21:01] LABS: % Basophils 1.3 % (0-2); % Immature Granulocytes 0.2 % (0-0.5); % Lymphocytes 38.9 % (20.5-51.1); % Monocytes 8.9 % (1.7-9.3); % Neutrophils 45.7 % (42.2-75.2); Absolute Basophils 0.1 10^3/uL (0-0.2); Absolute Eosinophils 0.3 10^3/uL (0-0.7); Absolute Lymphocytes 2.4 10^3/uL (1.2-3.4); Absolute Monocytes 0.6 10^3/uL (0.1-0.6); Absolute Neutrophils 2.8 10^3/uL (1.4-6.5); Hematocrit 32.7 % (37.0-47.0); Hemoglobin 11.4 g/dL (12.0-16.0); Mean Corp Hgb Conc. 34.9 g/dL (33.0-37.0); Mean Corpuscular Hgb 28.9 pg (27.0-31.0); Mean Platelet Volume 9.6 fL (7.4-10.4); Nucleated Red Blood Cells % 0 %; Platelet Count 176 10^3/uL (130-400); Red Blood Cell Count 3.94 10^6/uL (4.20-5.40); Red Cell Dist. Width 13.1 % (11.5-14.5); White Blood Cell Count 6.2 10^3/uL (4.8-10.8)
[2024-04-24 21:16] VITALS: BP 171/144
[2024-04-24 21:21] LABS: ALT (SGPT) 41 U/L (0-35); AST (SGOT) 46 U/L (14-36); Albumin 4.2 g/dl (3.5-5.0); Alkaline Phosphatase 87 U/L (38-126); Blood Urea Nitrogen 23 mg/dl (7-17); Calcium 9.4 mg/dl (8.4-10.2); Carbon Dioxide 30 mmol/L (22-30); Chloride 100 mmol/L (98-107); Glucose 222 mg/dl (70-99); Potassium 5.2 mmol/L (3.5-5.1); Sodium 136 mmol/L (135-145); Total Bilirubin 0.8 mg/dl (0.2-1.3); Total Protein 6.9 g/dl (6.3-8.2); eGFR 56.25
[2024-04-24 21:24] LABS: Troponin I < 0.012 ng/ml
[2024-04-24 21:25] VITALS: BMI 27.0
[2024-04-24 22:00] VITALS: BP 156/70
--- NOTE | 2024-04-24 22:12 | ED.GENMED ---
History of Present Illness
General
Chief Complaint: Blood Pressure Problem
Source: patient
Exam Limitations: none
Time Seen by Provider: 04/24/24 22:01
Nursing documentation reviewed up to this point in time: agreed with
History of Present Illness
History of Present Illness:
This a pleasant 84-year-old female who presents with elevated blood pressure. She routinely takes her blood pressure and noticed that tonight it was elevated. She had no complaints. She states that she discovered this during her routine blood
pressure check. She states that she had no chest pain or pressure. She denied headache or dizziness. She did take her blood pressure medications as directed. Currently she remains asymptomatic. She reports earlier in the day she had left upper
abdominal pain which is something she gets with her 'chronic pancreatitis '. She states that those symptoms had resolved. She reports no other symptoms at this time.
Past History
Past History
ED Past Medical History: CAD, GERD, HTN, Hypercholesterolemia and Other ('Lung problem')
ED Past Surgical History: Appendectomy, Cardiac (Stent) and Orthopedic
Social History
Tobacco: Non-smoker
Alcohol: None
Drug: None
Living: with family
Review of Systems
Review of Systems
Allergies reviewed?: Yes
All Other Systems: Not applicable
Constitutional: Reports no symptoms
EENT: Reports no symptoms
Respiratory: Reports no symptoms; Denies cough or trouble breathing
Cardiac: Reports no symptoms; Denies chest pain
ABD/GI: Reports abdominal pain; Denies nausea, vomiting, diarrhea or constipated
: Reports no symptoms
Musculoskeletal: Reports no symptoms
Skin: Reports no symptoms
Neurological: Reports no symptoms
Endocrine: Reports no symptoms
Hematologic/Lymphatic: Reports no symptoms
Psychiatric: Reports no symptoms
Phy Exam
General Physical Exam
General Presentation: well appearing and no apparent distress
General Skin: warm and dry
General Habitus: normal
General Mental: alert
General Hydration: appears well hydrated
ENT Exam
ENT Exam: EOMI, pharynx normal, neck supple and normocephalic
Eye Exam
Eye Exam: PERRL, cornea clear and conjunctiva normal
Cardiovascular Exam
Cardiovascular Exam: regular rate/rhythm, no edema, no murmur and normal peripheral pulses
Pulmonary Exam
Pulmonary Exam: lungs clear, no respiratory distress, no rales, no crackles, no rhonchi, no stridor, no wheezing and no cough
Gastrointestinal Exam
Gastrointestinal Exam: normal bowel sounds, non tender, soft, no organomegaly, no pulsatile mass and non distended
Neurological Exam
Neurological Exam: alert, oriented x3, no motor deficits and speech normal
Musculoskeletal Exam
Musculoskeletal Exam: full ROM and no edema
Skin Exam
Skin Exam: normal color, warm/dry, no rash and no petechia
Psychiatric Exam
Psychiatric Exam: normal mood/affect
Course
Orders/Labs/Results
Orders:
Orders
04/24/24 20:40
Electrocardiogram (*1) Urgent
Reason for Study: Hypertension, Benign
EKG- Treatment ONCE
04/24/24 20:42
CT Head W/o Iv Contrast Urgent
Comment:
Reason For Exam: blurry vision
04/24/24 20:55
Complete Blood Count/With Diff Urgent
Comprehensive Metabolic Panel Urgent
Lipase Urgent
Comment: ADD ON
Troponin I Urgent
04/24/24 22:12
Add On- LAB Urgent
Tests Added?: lipase
04/24/24 23:41
Losartan [Cozaar] 25 mg PO NOW STA
04/25/24 02:00
Flush (0.9% Sodium Chloride) [Flush (Nss)] See Dose Instructions IV PER PROTOCOL
Abnormal Lab Results
04/24/24
20:55
RBC 3.94 L 10^6/uL
(4.20-5.40)
Hgb 11.4 L g/dL
(12.0-16.0)
Hct 32.7 L %
(37.0-47.0)
Potassium 5.2 H mmol/L
(3.5-5.1)
BUN 23 H mg/dl
(7-17)
Glucose 222 H mg/dl
(70-99)
AST 46 H U/L
(14-36)
ALT 41 H U/L
(0-35)
04/24/24 20:55
04/24/24 20:55
Vital Signs
Initial and Last Documented VS:
Initial Vital Signs
Temp Pulse Resp BP Pulse Ox
98.0 F 67 18 199/158 98
04/24/24 20:38 04/24/24 20:38 04/24/24 20:38 04/24/24 20:38 04/24/24 20:38
Last Documented Vital Signs
Temp Pulse Resp BP Pulse Ox
98.0 F 60 23 163/81 98
04/24/24 20:38 04/24/24 23:37 04/24/24 23:37 04/24/24 23:37 04/24/24 20:38
*Critical Care Note
Total Time (30-74mins, 75-104mins- exclusive of procedures): Not Applicable
Update Note
Update Note:
Vital signs are stable. Patient not hypoxic
Nursing note reviewed. I agree with nursing documentation up to this point in time.
Home Meds and allergies reviewed.
NUMBER AND COMPLEXITY OF PROBLEMS ADDRESSED AT THE ENCOUNTER
� Chronic conditions affecting care: Hypertension, hyperlipidemia, pancreatitis, chronic cough, diabetes
� Acute Exacerbation and/or Progression of Chronic Illness:
� Differential Diagnosis includes: Hypertension, hypertensive urgency
AMOUNT AND/OR COMPLEXITY OF DATA TO BE REVIEWED AND ANALYZED
I performed an independent evaluation of the following and my interpretation is:
EKG: EKG shows normal sinus rhythm 62 with normal intervals, normal axis. No evidence of acute ischemia present. When compared with previous EKG dated January 23, 2024, similar morphology noted.
CT:
X-rays:
Ultrasound:
Laboratory Studies: Troponin is negative.
Other:
Review of other/old records: Diabetes management for
Clinical information was obtained by an independent historian:
Prescriptions/Medications Considered but not given:
Further testing considered but not performed:
RISK OF COMPLICATIONS AND/OR MORBIDITY OR MORTALITY OF PATIENT MANAGEMENT
Social determinants of health affecting care: Good Social Support
Discussion with other providers: Hospitalist for admission
Escalation of care including admission/observation vs risk of discharge considered: Given prolonged symptoms, patient to be admitted.
CRITICAL CARE NOTE:
Total Time (exclusive of procedures):
Update:
04/24/2024 2317 PM: Back in to see family. Discussed lab work and preliminary CAT scan results with son-in-law. Patient is asymptomatic. Family concerned because blood pressure 'spiked '.
04/25/2024 0042 AM: Initially patient did not wish to be admitted for observation. She got up and her blood pressure spiked. She states that she has increased headache. Patient to be admitted for continued observation to the hospitalist service.
ED Attending Note
-
Portions of this chart may have been created with voice recognition software.� Occasional wrong word or��sound alike� substitutions may have occurred due to the inherent limitations of voice recognition software.
Discharge Plan
Departure
Patient Disposition: Admit
Date of Disposition: 04/24/24
Time of Disposition: 23:54
Admit to: Med/Surg
Presentation/result/management discussed w/ accepting MD/DO: Hospitalist
Patient with high blood pressure during this ER visit?: Yes
Condition: Good
Discharge Problem:
Hypertension
Instructions: High Blood Pressure (DC), BLOOD PRESSURE
Prescriptions:
No Action
carvedilol [Coreg] 25 mg Tablet
25 mg PO BID
therapeutic multivitamin Tablet
1 tab PO DAILY
aspirin 81 mg Tablet,Delayed Release (Dr/Ec)
81 mg PO DAILY
nitroglycerin [Nitrostat] 0.4 mg Tablet, Sublingual
0.4 mg SUBLINGUAL [id number] PRN (Reason: chest pain)
(DME) Contour Next Test Strips Strip
Qty: 60 0RF
Rx Instructions:
Pt Testing 2 times a day
(DME) lancets [Microlet Lancet] Misc
Qty: 60 0RF
Rx Instructions:
Pt testing 2 times a day
(DME) pen needle, diabetic [BD Ultra-Fine Kourtney Pen Needle] 32 gauge x 5/32' Needle
Qty: 60 0RF
Rx Instructions:
USE DAILY WITH LANTUS AT BEDTIME
atorvastatin 80 mg Tablet
80 mg PO QPM Qty: 30 0RF
clopidogrel 75 mg tablet
75 mg PO DAILY Qty: 20 0RF
dapagliflozin propanediol [Farxiga] 10 mg tablet
10 mg PO DAILY Qty: 30 0RF
Patient Comments:
pt unsure if she takes this medication
losartan 50 mg Tablet
50 mg PO DAILY
insulin glargine [Basaglar KwikPen U-100 Insulin] 100 unit/mL (3 mL) insulin pen
10 unit SC DAILY
Rx Instructions:
Take daily at Bedtime
Referrals:
Dickson Coronado MD [Family Provider] - Next open appointment
Activity Restrictions/Additional Instructions:
It was a pleasure meeting you and taking part in your care. We hope for your continued healing and wellness.
Please read discharge instructions in their entirety. However, they are for general education and may not describe your exact diagnosis at discharge. Information on your ER visit and medical conditions were discussed with you along with appropriate
follow up information...
If indicated, please take your medications as instructed and indicated on discharge paperwork.
Please schedule a follow up appointment as directed. Call to schedule an appointment
Please return to the emergency department with ANY change in, persisting, or worsening of symptoms. If any of your symptoms do not improve, or persist, or become more severe within 6-12 hours, please return to the emergency department for further
care.
Please return to the emergency department if you develop a headache, neck pain/stiffness, fever greater than 100.4F, chest pain, shortness of breath, persistent nausea, vomiting, slurred speech, difficulty walking, numbness/tingling, weakness, signs
of infection or any other symptoms that are worrisome to you.
If you have any questions or concerns please do not hesitate to call the Hospital at or E-mail me directly at [email or web address]
Interventions
Interventions:
*Risk Screen - Suicide Last Done: 04/24/24 20:38
*General Assessment Last Done: 04/24/24 20:38
*Neglect/Abuse Screening Last Done: 04/24/24 20:38
ED- Fall Risk Assessment Last Done: 04/24/24 21:22
*ED COVID-19 Vaccine History Last Done: 04/24/24 21:25
ED- Cardiac Assessment Last Done: 04/24/24 21:22
ED- Neurological Assessment Last Done: 04/24/24 21:22
ED- Pulmonary Assessment Last Done: 04/24/24 21:22
Discharge Date and Time
Print Language: TAMAZIGHT
[2024-04-24 22:42] LABS: Lipase 121 U/L (23-300)
[2024-04-24 23:04] VITALS: BP 167/107
[2024-04-24 23:06] VITALS: BP 160/100
[2024-04-24 23:37] VITALS: BP 163/81
[2024-04-25] VITALS (14 sets, daily range): BP systolic 115–186; BP diastolic 57–98; BMI 26.4
--- NOTE | 2024-04-25 02:25 | HPS.HSE ---
Family Physician
-
Family Physician: Dickson Coronado
Chief Complaint
-
Uncontrolled hypertension and headache
History of Present Illness
This is an 84-year-old female with past medical history significant for CVA, hypertension and diabetes who presents to the emergency department initially with incidental management of elevated blood pressure and then developed a headache while she
was in the ED.
Patient reports that blood pressure fluctuates and she checks it 3 times a day. She was routinely checking her blood pressure today and she had a measurement of systolic blood pressure of around 200. She was seen in the clinic yesterday and a
blood pressure at the time was 150. She reports that her blood pressure fluctuates but she ranges from anywhere from 160 down to 100. She denies any symptoms during measurement of the BP of 200 systolic. Specifically she denies having any
headache blurry vision double vision chest pain shortness of breath numbness tingling or weakness. She mentioned mild epigastric abdominal pain which was reminiscent of her pancreatitis. However on arrival in the emergency department that pain had
resolved.
On arrival in the ED initial blood pressure was 200/150. Patient also was initially asymptomatic. Blood pressure did go down on its own and she was about to be discharged from the ED she had an episode of a headache which was associated with an
elevated blood pressure. The CT of the head was negative. ECG showed normal sinus rhythm without any acute ST or T wave changes and this was unchanged from prior. Troponin is negative. CBC was normal. Chemistry shows a K of 5.2 but otherwise
was unchanged from prior. Lipase was within normal limits
Over the last 3 hours measurements of BP in the ED that showed it ranged from 170-130 systolic. Patient has remained asymptomatic
Medical History
Past Medical History
Past Medical History: Reports CVA, HTN, Hypercholesterolemia and IDDM
Past Surgical History: Reports None
Social History
Tobacco: Non-smoker
Alcohol: None
Drug: None
Living: With Family
Employment: Retired
Family History
Family History: Not pertinent
Allergies / Home Medications
Allergies reflects when Allergies were last updated in [facility].
Home Medications with original date entered in [facility]
Allergy/Medication List:
Allergies
Allergy/AdvReac Type Severity Reaction Status Date / Time
codeine Allergy Hives Verified 04/24/24 20:31
Penicillins Allergy Hives Verified 04/24/24 20:31
Sulfa (Sulfonamide Allergy Really sick Verified 04/24/24 20:31
Antibiotics)
Home Medications
aspirin 81 mg tablet,delayed release 81 mg PO DAILY Blood Clot Prevention/Tx 01/23/24
carvedilol 25 mg tablet (Coreg) 25 mg PO BID Heart Failure 01/23/24
nitroglycerin 0.4 mg sublingual tablet (Nitrostat) 0.4 mg sublingual [id number] PRN chest pain 01/23/24
therapeutic multivitamin 1 tab PO DAILY Supplement 01/23/24
atorvastatin 80 mg tablet 80 mg PO QPM #30 tabs 01/27/24
blood sugar diagnostic (Contour Next Test Strips) #60 ea 01/27/24
clopidogrel 75 mg tablet 75 mg PO DAILY Neurological Condition #20 tabs 01/27/24
lancets (Microlet Lancet) #60 ea 01/27/24
pen needle, diabetic 32 gauge x 5/32' (BD Ultra-Fine Kourtney Pen Needle) #60 ea 01/27/24
dapagliflozin propanediol 10 mg tablet (Farxiga) 10 mg PO DAILY #30 tabs 01/30/24
losartan 50 mg tablet 50 mg PO DAILY 04/24/24
insulin glargine 100 unit/mL (3 mL) subcutaneous pen (Basaglar KwikPen U-100 Insulin) 10 unit SC DAILY Diabetes 04/25/24
Review of Systems
-
Constitutional: Reports No Symptoms
EENT: Reports No Symptoms
Respiratory: Reports No Symptoms
Cardiac: Reports No Symptoms
: Reports No Symptoms
Musculoskeletal: Reports No Symptoms
Skin: Reports No Symptoms
Neurological: Reports No Symptoms
Endocrine: Reports No Symptoms
Hematologic/Lymphatic: Reports No Symptoms
Psych: Reports No Symptoms
Physical Exam
Vital Signs
Vital Signs
Temp Pulse Resp BP Pulse Ox
98.0 F 60 23 163/81 98
04/24/24 20:38 04/24/24 23:37 04/24/24 23:37 04/24/24 23:37 04/24/24 20:38
Physical Exam
General: Well Developed, Well Nourished, No Apparent Distress and Comfortable
HEENT: NormoCephalic, Anicteric, Moist mucous membranes and Atraumatic
Respiratory: Clear
Cardiac: S1/S2 and Regular Rhythm
Breast: Deferred by me
GI: Soft, Non Tender, Non Distended and Normal Bowel Sounds
Rectal: Deferred by Provider
Genito-urinary: Deferred by me
Musculoskeletal: No Clubbing, No Cyanosis and No Edema
Skin: Warm
Neuro: AO x 3
Hematologic/Lymphatic: Lymphadenopathy
Psych: Calm
Laboratory Results
-
04/24/24 20:55
04/24/24 20:55
Laboratory Results
Total Bilirubin 0.8 mg/dl (0.2-1.3) 04/24/24 20:55
AST 46 U/L (14-36) H 04/24/24 20:55
ALT 41 U/L (0-35) H 04/24/24 20:55
Alkaline Phosphatase 87 U/L (38-126) 04/24/24 20:55
Troponin I < 0.012 ng/ml 04/24/24 20:55
Lipase 121 U/L (23-300) 04/24/24 20:55
Data Reviewed
-
CT Scan: Report Reviewed by me
Medical Tests (Nuc Med, Echo, EKG etc): Image Personally Visualized and interpreted
Lab Data: Labs Reviewed by me
Old Records: Reviewed
Impression/Plan
-
IMPRESSION:
Patient with episode of uncontrolled hypertension with associated headache. The blood pressure was initially measurement that was detected at home on routine measurements. It was also confirmed in the ED. However there was spontaneous reduction
in blood pressure which was further improved with addition of 25 mg of losartan in the ED. However prior to discharge from the ED patient had episode of headache and the blood pressure spiked up again. She had a CT scan of the head which was
negative. She had no focal neurological deficits. ECG was unremarkable. Troponin was negative. Patient denied any other symptoms. For the last 3 to 4 hours the patient blood pressure has been in the safe range from 130s systolic to 170 systolic
and she has been asymptomatic. Will observe and d/c in am
PLAN:
HTN - No evidence of urgency at this time.
- continue losartan 50 and carvedilil 25 bid
- follow up with pmd
CVA
- continue statin
- continue aspirin
DM II
-lantus 10 us
-low dose sliding scale
-farxiga 10 daily
DVT PPX SCD
Code Status full code
--- NOTE | 2024-04-25 06:41 | TRANSFER ---
Pt arrived from ED at 0600 dx of uncontrolled HTN, VSS. Pt has no IV access. Pt was able to ambulate into room with standby assist and single point cane. Bed in lowest position, call ndiaye within reach.
[2024-04-25 07:21] LABS: Glucose - Point of Care 143 mg/dl (70-99)
[2024-04-25] MEDS: PLAVIX 75 MG PO (08:25)
[2024-04-25] MEDS: COZAAR 50 MG PO (08:26)
[2024-04-25] MEDS: COREG 25 MG PO ×2 (08:26→21:22)
[2024-04-25] MEDS: LANTUS 0.1 UNITS SC (08:26)
[2024-04-25] MEDS: ASPIR LOW (ENTERIC COATED) 81 MG PO (08:26)
--- NOTE | 2024-04-25 08:38 | VNURNOTE ---
Chart reviewed. Patient is current with [facility] nursing and PT. Currently in OBS status. Will continue to follow hospital course.
[2024-04-25] MEDS: TYLENOL 650 MG PO ×2 (08:40→21:22)
--- NOTE | 2024-04-25 11:36 | W.DS.TRANS ---
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
-
Discharge Instructions:
Discharge Diagnosis/Procedures HTN
Diet Diabetic, Carb Controlled
Instructions:
Stand-Alone Forms:
Changes to Home Medications: No
Discharge Medications:
DC Medications w/original date entered in [employer]
aspirin 81 mg tablet,delayed release 81 mg PO DAILY Blood Clot Prevention/Tx 01/23/24
carvedilol 25 mg tablet (Coreg) 25 mg PO BID Heart Failure 01/23/24
nitroglycerin 0.4 mg sublingual tablet (Nitrostat) 0.4 mg sublingual [id number] PRN chest pain 01/23/24
therapeutic multivitamin 1 tab PO DAILY Supplement 01/23/24
atorvastatin 80 mg tablet 80 mg PO QPM #30 tabs 01/27/24
blood sugar diagnostic (Contour Next Test Strips) #60 ea 01/27/24
clopidogrel 75 mg tablet 75 mg PO DAILY Neurological Condition #20 tabs 01/27/24
lancets (Microlet Lancet) #60 ea 01/27/24
pen needle, diabetic 32 gauge x 5/32' (BD Ultra-Fine Kourtney Pen Needle) #60 ea 01/27/24
dapagliflozin propanediol 10 mg tablet (Farxiga) 10 mg PO DAILY #30 tabs 01/30/24
losartan 50 mg tablet 50 mg PO DAILY 04/24/24
amitriptyline 10 mg tablet 10 mg PO HS 04/25/24
insulin glargine 100 unit/mL (3 mL) subcutaneous pen (Luis ElizabethPen U-100 Insulin) 10 unit SC DAILY Diabetes 04/25/24
Home Medication Changes
Pending Results: No
--- NOTE | 2024-04-25 11:44 | CM ---
Addendum entered by Darshana Villa 04/25/24 11:49:
Plan - anticipate home with [facility]
Original Note:
Met with pt at bedside
Pt originally fro [place] - visiting daughter and experienced medical issues
Resides with daughter, son-in-law and family currently at listed address
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
DME - cane, rolling walker
SNF/Rehab - in [place]
HH- active with [facility]
Has ride at discharge
PCP - Dr Emi Coronado
[facility]arm - [facility]
Discussed ELIAS - refused to sign. Given copy
Plan - anticipate home no needs
[2024-04-25 12:43] LABS: Glucose - Point of Care 137 mg/dl (70-99)
--- NOTE | 2024-04-25 13:54 | W.PN.HOSP.TC ---
Today's Communication/Plan
-
See plan
Assessment / Plan
Assessment / Plan
Impression:
Presentation with headache and accelerated hypertension.
Mild hypokalemia potassium 5.2.
Conditions prior to admission:
Small lacunar infarct of the right thalamus on 02/12
Essential hypertension
Insulin requiring diabetes
Dyslipidemia
Plan:
Presentation with headache and accelerated hypertension
Systolic blood pressure over 200 while in the emergency room improved with introduction of preadmission BP medication regimen.
Remains with persistent headache, although with no focal findings on the rest of neurologic exam.
CT scan of the head with no acute abnormalities.
In review of her most recent admission 02/12, similar presentation with headache initial unremarkable imaging including CT of the head and CTA with following MRI findings consistent with small lacunar infarct of the right thalamus
Completed 21 days of DAPT with aspirin and Plavix and currently on aspirin alone.
Given persistent headaches, will repeat MRI of the brain.
Continue aspirin and statin.
Accelerated hypertension.
? Hypertensive urgency.
Blood pressure improved, although remains elevated with SBP in 150s�170s.
Check renin, aldosterone, ARR
Continue Coreg
Increase losartan to 100 mg daily
Monitor BP trend.
Recently initiated amitriptyline for persistent headache by primary neurologist
Mild hyperkalemia potassium 5.2
Follow BMP while on ARB
Type 2 diabetes/IDDM.
Hemoglobin A1c is 02/12 at 9.
Continue preadmission regimen with glargine 10 units at bedtime
Continue Farxiga
Basal bolus protocol.
Update hemoglobin A1c
Anticipated Discharge: 24 - 48 hours
Subjective/Interval History
-
Date of Service: April 25, 2024
Objective Data
-
Vital Signs:
Vital Signs
Temp Pulse Resp BP Pulse Ox
98.5 F 65 18 142/66 97
04/25/24 07:21 04/25/24 09:44 04/25/24 09:44 04/25/24 09:44 04/25/24 07:21
Physical Exam
-
General: Well Developed
HEENT: Normocephalic
Respiratory: Clear to Auscultation
Cardiac: Regular Rhythm
Musculoskeletal: No Clubbing
Skin: Warm
Neuro: Awake, Alert and Oriented
Psych: Calm
[2024-04-25] MEDS: COZAAR 25 MG PO (14:03)
--- NOTE | 2024-04-25 16:35 | PTCARENOTE ---
Patient brought to MRI via stretcher @15:30, returned @16:35.
[2024-04-25 17:03] LABS: Glucose - Point of Care 105 mg/dl (70-99)
[2024-04-25] MEDS: LIPITOR 80 MG PO (17:22)
[2024-04-25] MEDS: ELAVIL 10 MG PO (21:22)
[2024-04-25 21:30] LABS: Glucose - Point of Care 204 mg/dl (70-99)
[2024-04-26 07:25] LABS: Blood Urea Nitrogen 22 mg/dl (7-17); Calcium 9.5 mg/dl (8.4-10.2); Carbon Dioxide 25 mmol/L (22-30); Chloride 105 mmol/L (98-107); Estimated Creatinine Clearance 48 ml/min; Glucose 106 mg/dl (70-99); Potassium 4.2 mmol/L (3.5-5.1); Sodium 141 mmol/L (135-145); eGFR > 60.00
[2024-04-26 07:37] VITALS: BP 153/76
[2024-04-26 07:56] LABS: Glucose - Point of Care 127 mg/dl (70-99)
[2024-04-26] MEDS: COREG 25 MG PO (08:45)
[2024-04-26] MEDS: LANTUS 0.1 UNITS SC (08:45)
[2024-04-26] MEDS: ASPIR LOW (ENTERIC COATED) 81 MG PO (08:45)
[2024-04-26] MEDS: COZAAR 100 MG PO (08:45)
--- NOTE | 2024-04-26 09:07 | VNURNOTE ---
Resumption referral in [facility]. Will continue to monitor hospital course. [facility] remains available.
[2024-04-26] MEDS: TYLENOL 650 MG PO (09:34)
--- NOTE | 2024-04-26 10:45 | CM ---
Addendum entered by Tate Faulkner 04/26/24 15:58:
Discharge order noted
Pt referred to [facility] by CM yesterday.
Please fax discharge instructions to [facility] at [phone].
Plan: home with [facility] and family support.
Original Note:
CM following re: discharge planning.
Reviewed pt's chart, met with pt.
Pt reports she lives alone in [place], 4 months ago arrived to [place] for granddaughter graduations, had a stroke and is staying with daughter since then.
PT reports she ambulates with a cane. pt stated that headache is bother her very much and she has been experiencing headache since her stroke.
Pt has been notified that her admissions status has been upgraded to inpatient. IMM reviewed. placed on chart, pt has a copy.
D/C plan: home with anticipated no needs. Family to transport at discharge.
CM will follow with discharge plan updates as hospitalization progresses
[2024-04-26 12:32] LABS: Glucose - Point of Care 182 mg/dl (70-99)
[2024-04-26 12:33] VITALS: BP 146/80
--- NOTE | 2024-04-26 12:57 | W.DS.TRANS ---
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
-
Discharge Instructions:
Discharge Diagnosis/Procedures HTN
Diet Diabetic, Carb Controlled
Instructions:
Stand-Alone Forms:
Changes to Home Medications: Yes
Discharge Medications:
DC Medications w/original date entered in [employer]
aspirin 81 mg tablet,delayed release 81 mg PO DAILY Blood Clot Prevention/Tx 01/23/24
carvedilol 25 mg tablet (Coreg) 25 mg PO BID Heart Failure 01/23/24
nitroglycerin 0.4 mg sublingual tablet (Nitrostat) 0.4 mg sublingual [id number] PRN chest pain 01/23/24
therapeutic multivitamin 1 tab PO DAILY Supplement 01/23/24
atorvastatin 80 mg tablet 80 mg PO QPM #30 tabs 01/27/24
blood sugar diagnostic (Contour Next Test Strips) #60 ea 01/27/24
lancets (Microlet Lancet) #60 ea 01/27/24
pen needle, diabetic 32 gauge x 5/32' (BD Ultra-Fine Kourtney Pen Needle) #60 ea 01/27/24
dapagliflozin propanediol 10 mg tablet (Farxiga) 10 mg PO DAILY #30 tabs 01/30/24
amitriptyline 10 mg tablet 10 mg PO HS 04/25/24
insulin glargine 100 unit/mL (3 mL) subcutaneous pen (Basaglar KwikPen U-100 Insulin) 10 unit SC DAILY Diabetes 04/25/24
losartan 50 mg tablet 100 mg (2 x 50 mg) PO DAILY #60 tabs 04/26/24
Home Medication Changes
Plavix stopped
Losartan increased.
Pending Results: No
[2024-04-26 15:49] VITALS: BP 112/76
[2024-04-29 09:45] LABS: Aldosterone, Serum 9.2 ng/dL; Aldosterone/Renin Activ Ratio 91.8 ratio (<=25.0); Renin Activity Results 0.1 ng/mL/hr
== END 2024-04-26 17:15 | disposition home or self-care (01) | DRG 305 ==
LOC: 2 SOUTH 02:57
PROVIDERS: Emergency Medicine; ADMITTING PHYSICIAN Internal Medicine; ATTENDING PHYSICIAN Internal Medicine; EMERGENCY PHYSICIAN Student in an Organized Health Care Education/Training Program; FAMILY PHYSICIAN Family Medicine
DX: I16.0 Hypertensive urgency (principal); E11.9 Type 2 diabetes mellitus without complications; I10 Essential (primary) hypertension; E87.6 Hypokalemia; Z79.4 Long term (current) use of insulin
CPT/HCPCS: 70450; 70551; 80048; 80053; 82088; 82962; 83690; 84244; 84484; 85025; 93005; 99285

== ENCOUNTER → 2024-10-25 16:49 | Outpatient (REF) | payer MEDICARE, BC, SELFPAY | LOC: RAD 16:49 | PROVIDERS: ATTENDING PHYSICIAN Family Medicine | DX: M54.50 Low back pain, unspecified (principal); E11.59 Type 2 diabetes mellitus with other circulatory complications; I10 Essential (primary) hypertension; R26.9 Unspecified abnormalities of gait and mobility; K86.1 Other chronic pancreatitis; Z86.73 Personal history of transient ischemic attack (TIA), and cerebral infarction without residual deficits; M54.2 Cervicalgia; R51.9 Headache, unspecified | CPT/HCPCS: 72052; 72110; 73030 ==

== ENCOUNTER → 2024-10-30 12:20 | Outpatient (REF) | payer MEDICARE, BC, SELFPAY | LOC: HWRAD 12:20 | PROVIDERS: ATTENDING PHYSICIAN Family Medicine | DX: M54.50 Low back pain, unspecified (principal); M25.552 Pain in left hip | CPT/HCPCS: 73522; 76770 ==

== ENCOUNTER 2024-12-04 08:34 | Inpatient (IN) | payer MEDICARE, BC, SELFPAY ==
[2024-11-30] VITALS (10 sets, daily range): BP systolic 140–193; BP diastolic 64–109; BMI 26.4; BMI 25.4
--- NOTE | 2024-11-30 10:37 | ED.GENMED ---
History of Present Illness
General
Chief Complaint: Back Pain
Source: patient
Exam Limitations: none
Time Seen by Provider: 11/30/24 10:20
Nursing documentation reviewed up to this point in time: agreed with
History of Present Illness
History of Present Illness:
84-year-old female with history as documented presents to the ER for evaluation of low back pain. Patient has been dealing with chronic low back pain and has been following with Dr. Arana as an outpatient. She had an MRI of her low back and hip
earlier this week and had follow-up appointment in Dr. Alvarez's office 2 days ago. She says she is not sure the exact results of the MRI. She says that this morning she woke up with acute worsening of her chronic low back pain. She describes an
intense pain in the left low back that radiates across the lumbar region. Worse with any type of movement. Tried taking 2 extra strength Tylenol without improvement. She denies any radicular symptoms. She denies any numbness or weakness in the
extremities. She denies any bowel or bladder incontinence. She denies any saddle anesthesia. She denies any fever or chills. She denies any recent procedures. Denies any other complaints.
Past History
Past History
ED Past Medical History: CAD, GERD, HTN, Hypercholesterolemia and Other ('Lung problem')
ED Past Surgical History: Appendectomy, Cardiac (Stent) and Orthopedic
Social History
Tobacco: Non-smoker
Alcohol: None
Drug: None
Living: with family
Review of Systems
Review of Systems
All Other Systems: ROS reviewed and negative except as documented in HPI and ROS
Constitutional: Denies fever
ABD/GI: Denies abdominal pain
: Denies incontinence
Musculoskeletal: Reports back pain
Neurological: Denies weakness or numbness
Phy Exam
Physical Exam
Physical Exam:
General: Awake, alert, appears uncomfortable laying flat in bed
Head: Normocephalic, atraumatic
Eyes: Conjunctiva normal
Throat: Airway intact, handling secretions
Neck: Trachea midline, supple without meningismus
Lungs: Breathing comfortably no distress
Heart: Regular rate
Abd: Soft, non distended, nontender to deep palpation with no masses
Back: No signs of trauma, no midline thoracic or lumbar tenderness but she does have marked paraspinal tenderness left somewhat greater than right in the lumbar region; negative straight leg raise
Neuro: Motor and sensory intact lower extremities bilaterally
Skin: no rash in area of concern
Extremities: No edema in extremities, warm and well-perfused
Scores
Heart Failure Risk
Heart Failure Risk Score: Not Applicable
Heart Score for Chest Pain Patients
STEMI patient?: Not applicable
Withdrawal Assessment of Alcohol
Withdrawal Assessment Completed?: Not applicable
Course
Orders/Labs/Results
Orders:
Orders
11/30/24 10:35
Ketorolac [Toradol] 30 mg IM NOW STA
Lidocaine [Lidocaine 4% Patch] 1 patch TOPICAL ONCE ONE
Apply Lidocaine patch(s) to:: back
Oxycodone [Roxicodone] 5 mg PO NOW STA
11/30/24 11:34
HYDROmorphone [Dilaudid] 0.5 mg IV NOW STA
11/30/24 11:40
Basic Metabolic Panel Urgent
Complete Blood Count/With Diff Urgent
Abnormal Lab Results
11/30/24
11:40
Hct 36.0 L %
(37.0-47.0)
BUN 23 H mg/dl
(7-17)
11/30/24 11:40
11/30/24 11:40
Vital Signs
Initial and Last Documented VS:
Initial Vital Signs
Temp Pulse Resp BP Pulse Ox
36.4 C 71 16 180/103 100
11/30/24 10:17 11/30/24 10:17 11/30/24 10:17 11/30/24 10:17 11/30/24 10:17
Last Documented Vital Signs
Temp Pulse Resp BP Pulse Ox
36.4 C 67 26 193/99 100
11/30/24 10:17 11/30/24 11:45 11/30/24 11:45 11/30/24 11:00 11/30/24 11:15
MDM/Problems Addressed
Differential Diagnosis Includes:
Myofascial strain/back spasm, radiculopathy, DJD/arthritis
MDM/Problems Addressed:
84-year-old female presents for evaluation of acute on chronic low back pain; no clear trauma or inciting event, woke up with symptoms. Has been following as an outpatient for her chronic low back pain with Dr. Arana; had recent MRI of the back
and hip. Vitals and exam as above. Will plan to treat symptomatically for what I suspect is muscular back pain. Will try to obtain results from recent outpatient MRIs; hold on repeat emergent imaging at this point in time. Reassess after the
above.
Patient reports no improvement with oral pain medications. Will place an IV and provide parenteral pain control. Continue attempts to obtain outpatient MRI results.
Patient reports only slight improvement in pain after Dilaudid. Plan to admit for continued management of intractable acute on chronic low back pain. Discussed case with hospitalist.
Acute Exacerbation and/or Progression of Chronic Illness:
Acutely hypertensive suspect pain related�treat pain but hold on emergent antihypertensives
Acute Exacerbation and/or Progression of Chronic Illness: HTN
*Pulse Oximetry
Patient hypoxic: no
*Critical Care Note
Total Time (30-74mins, 75-104mins- exclusive of procedures): Not Applicable
Data Reviewed
Source: patient and records
Patient Management
Discussion with other providers: Hospitalist (Discussed with hospitalist)
Escalation/DeEscalation of care consider admission/obs:
Admission indicated
ED Attending Note
-
Portions of this chart may have been created with voice recognition software.� Occasional wrong word or��sound alike� substitutions may have occurred due to the inherent limitations of voice recognition software.
Discharge Plan
Departure
Patient Disposition: Admit
Date of Disposition: 11/30/24
Time of Disposition: 13:13
Admit to doctor: Tere
Presentation/result/management discussed w/ accepting MD/DO: Hospitalist
Discharge Problem:
Intractable low back pain
Prescriptions:
No Action
carvedilol [Coreg] 25 mg Tablet
25 mg PO BID
therapeutic multivitamin Tablet
1 tab PO DAILY
aspirin 81 mg Tablet,Delayed Release (Dr/Ec)
81 mg PO DAILY
nitroglycerin [Nitrostat] 0.4 mg Tablet, Sublingual
0.4 mg SUBLINGUAL [id number] PRN (Reason: chest pain)
(DME) Contour Next Test Strips Strip
Qty: 60 0RF
Rx Instructions:
Pt Testing 2 times a day
(DME) lancets [Microlet Lancet] Misc
Qty: 60 0RF
Rx Instructions:
Pt testing 2 times a day
(DME) pen needle, diabetic [BD Ultra-Fine Kourtney Pen Needle] 32 gauge x 5/32' Needle
Qty: 60 0RF
Rx Instructions:
USE DAILY WITH LANTUS AT BEDTIME
atorvastatin 80 mg Tablet
80 mg PO QPM Qty: 30 0RF
dapagliflozin propanediol [Farxiga] 10 mg tablet
10 mg PO DAILY Qty: 30 0RF
Patient Comments:
pt unsure if she takes this medication
insulin glargine [Basaglar KwikPen U-100 Insulin] 100 unit/mL (3 mL) insulin pen
10 unit SC DAILY
Rx Instructions:
Take daily at Bedtime
amitriptyline 10 mg Tablet
10 mg PO HS
losartan 50 mg Tablet
100 mg PO DAILY Qty: 60 0RF
Referrals:
Dickson Coronado MD [Family Provider] -
Interventions
Interventions:
*Risk Screen - Suicide Last Done: 11/30/24 10:21
*General Assessment Last Done: 11/30/24 10:21
*Neglect/Abuse Screening Last Done: 11/30/24 10:21
*ED- Fall Risk Assessment Last Done: 11/30/24 10:21
*ED COVID-19 Vaccine History Last Done: 11/30/24 10:21
ED-Musculoskeletal Assessment Last Done: 11/30/24 10:21
Discharge Date and Time
Print Language: MALAGASY
[2024-11-30] MEDS: TORADOL 30 MG IM (10:39)
[2024-11-30] MEDS: ROXICODONE 5 MG PO (10:39)
[2024-11-30] MEDS: DILAUDID 0.5 MG IV ×2 (11:40→20:07)
[2024-11-30 11:57] LABS: % Basophils 1.3 % (0-2); % Eosinophils 4.7 % (0-6); % Immature Granulocytes 0.2 % (0-0.5); % Lymphocytes 30.3 % (20.5-51.1); % Monocytes 8.2 % (1.7-9.3); % Neutrophils 55.3 % (42.2-75.2); Absolute Basophils 0.1 10^3/uL (0-0.2); Absolute Eosinophils 0.3 10^3/uL (0-0.7); Absolute Lymphocytes 1.9 10^3/uL (1.2-3.4); Absolute Monocytes 0.5 10^3/uL (0.1-0.6); Absolute Neutrophils 3.5 10^3/uL (1.4-6.5); Hemoglobin 12.4 g/dL (12.0-16.0); Mean Corp Hgb Conc. 34.4 g/dL (33.0-37.0); Mean Corpuscular Hgb 29.2 pg (27.0-31.0); Mean Corpuscular Volume 84.9 fL (81.0-99.0); Mean Platelet Volume 9.6 fL (7.4-10.4); Nucleated Red Blood Cells % 0 %; Platelet Count 174 10^3/uL (130-400); Red Blood Cell Count 4.24 10^6/uL (4.20-5.40); Red Cell Dist. Width 13.2 % (11.5-14.5); White Blood Cell Count 6.2 10^3/uL (4.8-10.8)
[2024-11-30 12:19] LABS: Blood Urea Nitrogen 23 mg/dl (7-17); Calcium 9.8 mg/dl (8.4-10.2); Carbon Dioxide 29 mmol/L (22-30); Chloride 106 mmol/L (98-107); Estimated Creatinine Clearance 48 ml/min; Glucose 93 mg/dl (70-99); Sodium 140 mmol/L (135-145); eGFR > 60.00
--- NOTE | 2024-11-30 14:15 | HPS.HSE ---
Family Physician
-
Family Physician: Dickson Coronado
Chief Complaint
-
Intractable lower back pain radiating to the left hip
History of Present Illness
84-year-old female with a past medical history of CAD, CVA, HTN, HL, and diabetes who presents with intractable back pain upon wakening this morning. She denies recent fall, injury, or trauma. Patient has had intermittent back pain chronically,
and follows with Dr. Arana. She had a recent Lumbar MRI done, which shows multilevel degenerative disc disease, with L1-L2 small left eccentric disc bulge. She denies bowel or bladder incontinence, denies perineal paresthesia, denies lower
extremity weakness. No chest pain, no shortness of breath. No fever, no vomiting.
Medical History
Past Medical History
Past Medical History: Reports CVA, HTN, Hypercholesterolemia and IDDM
Additional Past Medical History:
Coronary artery disease
Past Surgical History: Reports None and Other
Additional Past Surgical History:
Appendectomy
Cholecystectomy
Neck surgery
Skin excision
Cardiac stents
Social History
Tobacco: Non-smoker
Alcohol: None
Drug: None
Living: With Family
Employment: Retired
Family History
Family History: Not pertinent
Allergies / Home Medications
Allergies reflects when Allergies were last updated in [facility].
Home Medications with original date entered in [facility]
Allergy/Medication List:
Allergies
Allergy/AdvReac Type Severity Reaction Status Date / Time
codeine Allergy Hives Verified 04/24/24 20:31
Penicillins Allergy Hives Verified 04/24/24 20:31
Sulfa (Sulfonamide Allergy Really sick Verified 04/24/24 20:31
Antibiotics)
Home Medications Table - record
�Medication �Instructions �Recorded �Confirmed
aspirin 81 mg tablet,delayed 81 mg PO DAILY Blood Clot 01/23/24 11/30/24
release Prevention/Tx
carvedilol 25 mg tablet (Coreg) 25 mg PO BID Heart Failure 01/23/24 11/30/24
therapeutic multivitamin 1 tab PO DAILY Supplement 01/23/24 11/30/24
atorvastatin 80 mg tablet 80 mg PO QPM #30 tabs 01/27/24 11/30/24
losartan 50 mg tablet 100 mg (2 x 50 mg) PO DAILY #60 04/26/24 11/30/24
tabs
insulin glargine-yfgn 100 unit/mL 12 unit SC HS 11/30/24 11/30/24
(3 mL) subcutaneous pen (Semglee
(insulin glargine-yfgn) Pen)
Review of Systems
-
A 12 point ROS was completed and negative except as noted: Yes
Physical Exam
Vital Signs
Vital Signs
Temp Pulse Resp BP Pulse Ox
97.5 F 64 11 140/64 93
11/30/24 10:17 11/30/24 13:30 11/30/24 13:30 11/30/24 13:00 11/30/24 13:30
Physical Exam
General: Well Developed, Well Nourished and No Apparent Distress
HEENT: NormoCephalic, Anicteric and Moist mucous membranes
Respiratory: Clear
Cardiac: S1/S2 and Regular Rhythm
GI: Soft, Non Tender, Non Distended and Normal Bowel Sounds
Musculoskeletal: No Clubbing, No Cyanosis and No Edema
Skin: Warm and Dry
Neuro: Awake, Alert and Oriented
Laboratory Results
-
11/30/24 11:40
11/30/24 11:40
Laboratory Results
Total Bilirubin Cancelled 11/30/24 11:40
AST Cancelled 11/30/24 11:40
ALT Cancelled 11/30/24 11:40
Alkaline Phosphatase Cancelled 11/30/24 11:40
Impression/Plan
-
HPI: 84-year-old female with a past medical history of CAD, CVA, HTN, HL, and diabetes who presents with intractable back pain upon wakening this morning. She denies recent fall, injury, or trauma. Patient has had intermittent back pain
chronically, and follows with Dr. Arana. She had a recent Lumbar MRI done, which shows multilevel degenerative disc disease, with L1-L2 small left eccentric disc bulge. She denies bowel or bladder incontinence, denies perineal paresthesia,
denies lower extremity weakness. No chest pain, no shortness of breath. No fever, no vomiting.
Assessment and plan:
#Lumbar radiculopathy with left-sided hip pain
11/21/24 lumbar spine MRI shows multilevel degenerative disc disease with broad-based disc bulge, L1-2 small left eccentric disc bulge
Treat with lidocaine patches, Tylenol 1 g 3 times daily, oxycodone 5 mg for moderate pain, 10 mg for severe pain, IV Dilaudid for breakthrough pain
Consult PT/OT. Patient lives alone
#Insulin-dependent diabetes
Continue glargine 12 units at bedtime, diabetic diet, sliding scale insulin
#Essential hypertension
Continue losartan 100 mg daily, Coreg 25 mg twice a day
#Coronary artery disease status post stent placement
Continue aspirin, statin, Coreg
DVT prophylaxis�subcu Lovenox
Full code
Updated daughter at bedside 11/30
Total time spent to see the patient on the floor, examine the patient, review data and lab results, discuss treatment plan with patient, nursing staff around 60 minutes.
[2024-11-30] MEDS: ROXICODONE 10 MG PO (15:48)
[2024-11-30 16:13] LABS: Urine Albumin Negative (Neg - Trace); Urine Bilirubin Negative (Negative); Urine Character Clear (Clear); Urine Color Yellow; Urine Glucose Negative (Negative); Urine Ketone Negative (Negative); Urine Leukocyte Negative (Negative); Urine Nitrite Negative (Negative); Urine Occult Blood Negative (Negative); Urine Urobilinogen Negative (Neg - 1+)
[2024-11-30 18:26] LABS: Glucose - Point of Care 67 mg/dl (70-99)
[2024-11-30] MEDS: MIRALAX PO (18:33)
[2024-11-30] MEDS: LIPITOR 80 MG PO (18:37)
[2024-11-30] MEDS: LOVENOX 40 MG SC (18:37)
--- NOTE | 2024-11-30 18:42 | PTCARENOTE ---
pt from ED via stretcher. pt is AAO*3, room air. Vss, pt c/o pain 10/ withe movement. pt is oriented to the room. call ndiaye within the reach. plan of care ongoing.
[2024-11-30 18:45] LABS: Glucose - Point of Care 88 mg/dl (70-99)
[2024-11-30] MEDS: SENOKOT-S 2 TABLET PO (20:06)
[2024-11-30] MEDS: COREG 25 MG PO (20:06)
[2024-11-30] MEDS: TYLENOL 1000 MG PO (20:07)
[2024-11-30 20:42] LABS: Glucose - Point of Care 113 mg/dl (70-99)
[2024-11-30 21:56] LABS: Glucose - Point of Care 105 mg/dl (70-99)
[2024-11-30] MEDS: ZOFRAN 4 MG IV (22:18)
[2024-11-30] MEDS: LANTUS SC (22:18)
[2024-12-01 03:25] LABS: Glucose - Point of Care 177 mg/dl (70-99)
[2024-12-01 07:30] VITALS: BP 134/73
[2024-12-01 07:32] LABS: Glucose - Point of Care 150 mg/dl (70-99)
--- NOTE | 2024-12-01 08:38 | W.PN.HOSP.TC ---
Today's Communication/Plan
-
see bold
Assessment / Plan
Assessment / Plan
HPI: 84-year-old female with a past medical history of CAD, CVA, HTN, HL, and diabetes who presents with intractable back pain upon wakening this morning. She denies recent fall, injury, or trauma. Patient has had intermittent back pain
chronically, and follows with Dr. Arana. She had a recent Lumbar MRI done, which shows multilevel degenerative disc disease, with L1-L2 small left eccentric disc bulge. She denies bowel or bladder incontinence, denies perineal paresthesia,
denies lower extremity weakness. No chest pain, no shortness of breath. No fever, no vomiting.
Assessment and plan:
#Lumbar radiculopathy with left-sided hip pain
11/21/24 lumbar spine MRI shows multilevel degenerative disc disease with broad-based disc bulge, L1-2 small left eccentric disc bulge
Treat with lidocaine patches, Tylenol 1 g 3 times daily, oxycodone 5 mg for moderate pain, 10 mg for severe pain, IV Dilaudid for breakthrough pain
Start burst dose prednisone 40 mg daily day 1 out of 5 for anti-inflammatory effects
Consult PT/OT. Patient lives alone
#Insulin-dependent diabetes
Continue glargine 12 units at bedtime, diabetic diet, sliding scale insulin
Hyperglycemia expected with starting prednisone
#Essential hypertension
Continue losartan 100 mg daily, Coreg 25 mg twice a day
#Coronary artery disease status post stent placement
Continue aspirin, statin, Coreg
DVT prophylaxis�subcu Lovenox
Full code
Updated daughter at bedside 11/30
Total time spent to see the patient on the floor, examine the patient, review data and lab results, discuss treatment plan with patient, nursing staff around 50 minutes.
Physical Exam
General: No acute distress
HEENT: Normocephalic, Atraumatic, EOMI, MMM
Respiratory: Clear to Auscultation bilaterally
Cardiac: Normal S1/S2, Regular Rate and Rhythm
GI: Soft, Nontender, Nondistended, Normal Bowel Sounds
Extremities: No Clubbing, Cyanosis, or Edema
Neuro: Nonfocal/Grossly Intact
Psych: Calm, Cooperative
Derm: No Visible lesions
Anticipated Discharge: 24 - 48 hours
Subjective/Interval History
-
Date of Service: December 01, 2024
Patient reports improvement in her back pain. Currently 8 out of 10 in intensity. No chest pain, no shortness of breath. No fever, no vomiting.
Objective Data
-
Vital Signs:
Vital Signs
Temp Pulse Resp BP Pulse Ox
98.7 F 68 18 134/73 98
12/01/24 07:30 12/01/24 07:30 12/01/24 07:30 12/01/24 07:30 12/01/24 07:30
I&O
11/30/24 12/01/24 12/02/24
06:59 06:59 06:59
Intake Total 720 / 720
Output Total 400 / 400
Balance 320 / 320
[2024-12-01] MEDS: NOVOLOG FLEXPEN-MODERATE RESISTANCE 1 UNITS SC (08:39)
[2024-12-01] MEDS: SENOKOT-S 2 TABLET PO ×2 (08:40→21:37)
[2024-12-01] MEDS: COZAAR 100 MG PO (08:40)
[2024-12-01] MEDS: TYLENOL 1000 MG PO ×3 (08:40→21:36)
[2024-12-01] MEDS: MIRALAX 17 GRAMS PO (08:40)
[2024-12-01] MEDS: ASPIR LOW (ENTERIC COATED) 81 MG PO (08:40)
[2024-12-01] MEDS: COREG 25 MG PO ×2 (08:40→21:41)
[2024-12-01] MEDS: LIDOCAINE 4% PATCH 2 PATCH TOPICAL (08:41)
[2024-12-01] MEDS: DELTASONE 40 MG PO (10:04)
[2024-12-01] MEDS: PROTONIX 40 MG PO (10:04)
[2024-12-01] MEDS: ULTRAM 50 MG PO ×2 (10:04→18:25)
[2024-12-01 12:27] LABS: Glucose - Point of Care 146 mg/dl (70-99)
[2024-12-01] MEDS: NOVOLOG FLEXPEN-MODERATE RESISTANCE SC (12:54)
[2024-12-01 13:54] LABS: Glycohemoglobin (HgbA1c) 7.1 % (4.0-5.6)
[2024-12-01] MEDS: ZOFRAN 4 MG IV ×2 (15:14→21:38)
[2024-12-01] MEDS: ROXICODONE 10 MG PO (15:15)
[2024-12-01 15:29] VITALS: BP 140/76
--- NOTE | 2024-12-01 15:57 | CM ---
Alert awake oriented patient who is visiting dgt here in [place] . She lives in [place] . Home is 2 story home with 4 steps to enter and 16 steps to bed/bathroom. She is independent in activates of daily living.She does drive .She used a walker and
cane.Vera letter given explained . Pt did not sign VERA letter .
Had [facility] in past . No SNF hx
Pharmacy [facility] [address]
PCP Dr Coronado
PLAN Home with [facility]
[2024-12-01 16:37] LABS: Glucose - Point of Care 363 mg/dl (70-99)
[2024-12-01] MEDS: LOVENOX 40 MG SC (17:18)
[2024-12-01] MEDS: LIPITOR 80 MG PO (17:19)
[2024-12-01] MEDS: NOVOLOG FLEXPEN-MODERATE RESISTANCE 9 UNITS SC (17:19)
[2024-12-01 21:40] LABS: Glucose - Point of Care 184 mg/dl (70-99)
[2024-12-01] MEDS: DILAUDID 0.5 MG IV (21:42)
[2024-12-01] MEDS: LANTUS 0.12 UNITS SC (21:42)
[2024-12-01 23:32] VITALS: BP 117/57
--- NOTE | 2024-12-02 00:32 | PTCARENOTE ---
pt complaining of nausea with episode of emesis 3 hours after dilaudid and zofran administration for pain and subsequent nausea. 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 will continue to monitor.
[2024-12-02] MEDS: COMPAZINE 5 MG IV (00:38)
[2024-12-02] MEDS: ULTRAM 50 MG PO (05:33)
[2024-12-02 07:55] VITALS: BP 111/66
--- NOTE | 2024-12-02 07:58 | W.PN.HOSP.TC ---
Today's Communication/Plan
-
see bold
Assessment / Plan
Assessment / Plan
HPI: 84-year-old female with a past medical history of CAD, CVA, HTN, HL, and diabetes who presents with intractable back pain upon wakening this morning. She denies recent fall, injury, or trauma. Patient has had intermittent back pain
chronically, and follows with Dr. Arana. She had a recent Lumbar MRI done, which shows multilevel degenerative disc disease, with L1-L2 small left eccentric disc bulge. She denies bowel or bladder incontinence, denies perineal paresthesia,
denies lower extremity weakness. No chest pain, no shortness of breath. No fever, no vomiting.
Assessment and plan:
#Lumbar radiculopathy with left-sided hip pain
11/21/24 lumbar spine MRI shows multilevel degenerative disc disease with broad-based disc bulge, L1-2 small left eccentric disc bulge
Continue lidocaine patches, Tylenol 1 g 3 times daily, oxycodone 5 mg for moderate pain, 10 mg for severe pain, IV Dilaudid for breakthrough pain
Continue burst dose prednisone 40 mg daily day 2 out of 5 for anti-inflammatory effects
PT/OT rec HH vs SNF. Patient lives alone
#Insulin-dependent diabetes
Continue glargine 12 units at bedtime, diabetic diet, sliding scale insulin
Expect steroid induced hyperglycemia
#Essential hypertension
Continue losartan 100 mg daily, Coreg 25 mg twice a day
#Coronary artery disease status post stent placement
Continue aspirin, statin, Coreg
DVT prophylaxis�subcu Lovenox
Full code
Updated daughter at bedside 11/30
Total time spent to see the patient on the floor, examine the patient, review data and lab results, discuss treatment plan with patient, nursing staff around 40 minutes.
Physical Exam
General: Appears to not feel well, no acute distress
HEENT: Normocephalic, Atraumatic, EOMI, MMM
Respiratory: Clear to Auscultation bilaterally
Cardiac: Normal S1/S2, Regular Rate and Rhythm
GI: Soft, Nontender, Nondistended, Normal Bowel Sounds
Extremities: No Clubbing, Cyanosis, or Edema
Neuro: Nonfocal/Grossly Intact
Psych: Calm, Cooperative
Derm: No Visible lesions
Anticipated Discharge: 24 - 48 hours
Subjective/Interval History
-
Date of Service: December 02, 2024
Patient reports that her back pain is the same as upon admission, currently 8 out of 10 in intensity. She is nauseous, denies vomiting. No chest pain, no shortness of breath. No fever.
Objective Data
-
Vital Signs:
Vital Signs
Temp Pulse Resp BP Pulse Ox
98.3 F 63 16 117/57 95
12/01/24 23:32 12/01/24 23:32 12/01/24 23:32 12/01/24 23:32 12/01/24 23:32
I&O
12/01/24 12/02/24 12/03/24
06:59 06:59 06:59
Intake Total 720 / 720 960 / 960
Output Total 400 / 400
Balance 320 / 320 960 / 960
[2024-12-02 08:20] VITALS: BP 114/75; PULSE 66
[2024-12-02 08:25] LABS: Glucose - Point of Care 135 mg/dl (70-99)
[2024-12-02] MEDS: NOVOLOG FLEXPEN-MODERATE RESISTANCE SC (08:42)
[2024-12-02] MEDS: LIDOCAINE 4% PATCH 2 PATCH TOPICAL (09:04)
[2024-12-02] MEDS: PROTONIX 40 MG PO (09:05)
[2024-12-02] MEDS: TYLENOL 1000 MG PO ×3 (09:05→21:15)
[2024-12-02] MEDS: COREG 25 MG PO ×2 (09:05→20:02)
[2024-12-02] MEDS: COZAAR 100 MG PO (09:05)
[2024-12-02] MEDS: DELTASONE 40 MG PO (09:05)
[2024-12-02] MEDS: ASPIR LOW (ENTERIC COATED) 81 MG PO (09:05)
[2024-12-02] MEDS: MIRALAX 17 GRAMS PO (09:05)
[2024-12-02] MEDS: SENOKOT-S 2 TABLET PO ×2 (09:06→20:02)
[2024-12-02 09:34] VITALS: BP 114/75
[2024-12-02 12:14] LABS: Glucose - Point of Care 195 mg/dl (70-99)
[2024-12-02] MEDS: NOVOLOG FLEXPEN-MODERATE RESISTANCE 1 UNITS SC (12:37)
[2024-12-02] MEDS: ULTRAM 100 MG PO ×2 (12:51→20:01)
[2024-12-02 15:55] VITALS: BP 136/70
[2024-12-02 16:36] LABS: Glucose - Point of Care 225 mg/dl (70-99)
[2024-12-02] MEDS: NOVOLOG FLEXPEN-MODERATE RESISTANCE 3 UNITS SC (17:21)
[2024-12-02] MEDS: LOVENOX 40 MG SC (17:21)
[2024-12-02] MEDS: LIPITOR 80 MG PO (17:22)
[2024-12-02 21:03] LABS: Glucose - Point of Care 240 mg/dl (70-99)
[2024-12-02] MEDS: LANTUS 0.12 UNITS SC (21:11)
[2024-12-02 23:55] VITALS: BP 124/61
[2024-12-03 07:06] LABS: Albumin 3.4 g/dl (3.5-5.0); Total Protein 5.9 g/dl (6.3-8.2)
[2024-12-03 07:23] LABS: ALT (SGPT) 41 U/L (0-35); AST (SGOT) 34 U/L (14-36); Alkaline Phosphatase 62 U/L (38-126); Direct Bilirubin 0.3 mg/dl (0.0-0.4); Total Bilirubin 0.9 mg/dl (0.2-1.3)
[2024-12-03 07:30] VITALS: BP 153/80
[2024-12-03 07:31] LABS: Glucose - Point of Care 70 mg/dl (70-99)
[2024-12-03] MEDS: NOVOLOG FLEXPEN-MODERATE RESISTANCE SC ×2 (08:00→12:12)
[2024-12-03] MEDS: COZAAR 100 MG PO (09:39)
[2024-12-03] MEDS: PROTONIX 40 MG PO (09:39)
[2024-12-03] MEDS: SENOKOT-S 2 TABLET PO ×2 (09:39→20:04)
[2024-12-03] MEDS: DELTASONE 40 MG PO (09:39)
[2024-12-03] MEDS: MIRALAX 17 GRAMS PO (09:40)
[2024-12-03] MEDS: TYLENOL 1000 MG PO ×3 (09:40→23:00)
[2024-12-03] MEDS: LIDOCAINE 4% PATCH 2 PATCH TOPICAL (09:40)
[2024-12-03] MEDS: ASPIR LOW (ENTERIC COATED) 81 MG PO (09:40)
[2024-12-03] MEDS: COREG 25 MG PO ×2 (09:41→20:04)
--- NOTE | 2024-12-03 11:43 | CM ---
Reviewed therapy notes. Patient making progress but still not quite at baseline. Will get options for SNF if patient does not make any improvements.
Plan: Case management will continue to follow and assist with discharge planning. Home with VN vrs. SNF.
[2024-12-03 11:48] LABS: Glucose - Point of Care 99 mg/dl (70-99)
--- NOTE | 2024-12-03 13:01 | W.PN.HOSP.TC ---
Today's Communication/Plan
-
MRI
Assessment / Plan
Assessment / Plan
84yo F with PMHX of CVA, HTN, DM came with intractable lower back pain started after she was trying to reach something with her L arm. Has chronic back pain followed by , however usually can ambulate without issues. Recent MRI done without
acute findings, but was before change in the quality and strength of her pain.
A/P:
#Significant ambularoty dysfunction 2/2 acute on chronic lower back pain
Hx of disk bulge
With significant decrease in ambulatory capacity - MRI lumbar spine is reasonable
Pain mgmt
PT/OT
Stop oral prednisone
#DM type 2 with neuroapthy
Cont insulin, Accuchecks, add insulin SS
#Hx of CVA
#CAD, stable
#Essential HTN
cont home meds
DVT ppx lovenox
FUll code
I have spent at least 36min reviewing chart, test results and providing direct patient care
Anticipated Discharge: Within 24 hours
Subjective/Interval History
-
Date of Service: December 03, 2024
Objective Data
-
Labs:
Laboratory Results
12/03/24
05:47
Total Bilirubin 0.9
AST 34
ALT 41 H
Alkaline Phosphatase 62
Vital Signs:
Vital Signs
Temp Pulse Resp BP Pulse Ox
98.3 F 64 18 153/80 97
12/03/24 07:30 12/03/24 07:30 12/03/24 07:30 12/03/24 07:30 12/03/24 07:30
I&O
12/02/24 12/03/24 12/04/24
06:59 06:59 06:59
Intake Total 960 / 960 1200 / 1200
Balance 960 / 960 1200 / 1200
Review of Systems
-
History Source: Patient
All other systems: Reviewed and negative
Musculoskeletal: Reports Other (back pain)
Physical Exam
-
General: No Apparent Distress
HEENT: Normocephalic
Cardiac: Regular Rhythm
GI: Soft, Nontender and Nondistended
Musculoskeletal: No Clubbing, No Cyanosis and No Edema
Neuro: Awake, Alert, Oriented and AO x 3
Psych: Calm
[2024-12-03 15:30] VITALS: BP 137/66
[2024-12-03 16:46] LABS: Glucose - Point of Care 347 mg/dl (70-99)
[2024-12-03] MEDS: NOVOLOG FLEXPEN-MODERATE RESISTANCE 7 UNITS SC (16:50)
[2024-12-03] MEDS: LOVENOX 40 MG SC (16:51)
[2024-12-03] MEDS: LIPITOR 80 MG PO (16:51)
[2024-12-03] MEDS: ULTRAM 100 MG PO (20:08)
[2024-12-03 21:34] LABS: Glucose - Point of Care 366 mg/dl (70-99)
[2024-12-03] MEDS: LANTUS 0.12 UNITS SC (21:52)
[2024-12-03 23:30] VITALS: BP 159/70
[2024-12-04 07:25] VITALS: BP 160/75
[2024-12-04 07:27] LABS: Glucose - Point of Care 66 mg/dl (70-99)
[2024-12-04 07:47] LABS: Glucose - Point of Care 70 mg/dl (70-99)
[2024-12-04] MEDS: NOVOLOG FLEXPEN-MODERATE RESISTANCE SC ×2 (08:02→12:37)
[2024-12-04] MEDS: MIRALAX 17 GRAMS PO (09:38)
[2024-12-04] MEDS: PROTONIX 40 MG PO (09:38)
[2024-12-04] MEDS: COREG 25 MG PO ×2 (09:38→21:36)
[2024-12-04] MEDS: SENOKOT-S 2 TABLET PO ×2 (09:38→21:36)
[2024-12-04] MEDS: COZAAR 100 MG PO (09:39)
[2024-12-04] MEDS: TYLENOL 1000 MG PO ×3 (09:39→21:36)
[2024-12-04] MEDS: ASPIR LOW (ENTERIC COATED) 81 MG PO (09:39)
[2024-12-04] MEDS: LIDOCAINE 4% PATCH 2 PATCH TOPICAL (09:39)
--- NOTE | 2024-12-04 09:42 | VNURNOTE ---
Chart reviewed. Attempted to meet with patient to discuss [facility] [place] services. She was going into bathroom. SNF v VN. Will follow up after plan decided.
[2024-12-04] MEDS: ULTRAM 100 MG PO (09:52)
[2024-12-04 10:00] VITALS: BP 134/72
[2024-12-04 10:19] LABS: Glucose - Point of Care 118 mg/dl (70-99)
--- NOTE | 2024-12-04 10:41 | W.PN.HOSP.TC ---
Today's Communication/Plan
-
pending MRI
cont same pain meds and PT/OT
Assessment / Plan
Assessment / Plan
84yo F with PMHX of CVA, HTN, DM came with intractable lower back pain started after she was trying to reach something with her L arm. Has chronic back pain followed by , however usually can ambulate without issues. Recent MRI done without
acute findings, but was before change in the quality and strength of her pain.
A/P:
#Significant ambularoty dysfunction 2/2 acute on chronic lower back pain
Hx of disk bulge
With significant decrease in ambulatory capacity and weakness during bedside transfers - MRI lumbar spine is reasonable
Pain mgmt
PT/OT
Stop oral prednisone
#DM type 2 with neuroapthy
Cont insulin, Accuchecks, add insulin SS
#Hx of CVA
#CAD, stable
#Essential HTN
cont home meds
DVT ppx lovenox
FUll code
I have spent at least 36min reviewing chart, test results and providing direct patient care
Anticipated Discharge: 24 - 48 hours
Subjective/Interval History
-
Date of Service: December 04, 2024
Objective Data
-
Vital Signs:
Vital Signs
Temp Pulse Resp BP Pulse Ox
98.0 F 67 16 160/75 96
12/04/24 07:25 12/04/24 07:25 12/04/24 07:25 12/04/24 07:25 12/04/24 07:25
I&O
12/03/24 12/04/24 12/05/24
06:59 06:59 06:59
Intake Total 1200 / 1200 840 / 840
Balance 1200 / 1200 840 / 840
Review of Systems
-
History Source: Patient
All other systems: Reviewed and negative
Physical Exam
-
General: No Apparent Distress
HEENT: Normocephalic
GI: Soft, Nontender and Nondistended
Musculoskeletal: Other (Barber on leg raise test on R)
Neuro: Awake, Alert, Oriented and AO x 3
Psych: Calm
[2024-12-04 11:56] LABS: Glucose - Point of Care 78 mg/dl (70-99)
[2024-12-04 15:27] VITALS: BP 128/69
[2024-12-04 16:41] LABS: Glucose - Point of Care 172 mg/dl (70-99)
[2024-12-04] MEDS: LOVENOX 40 MG SC (17:04)
[2024-12-04] MEDS: LIPITOR 80 MG PO (17:05)
[2024-12-04] MEDS: NOVOLOG FLEXPEN-MODERATE RESISTANCE 1 UNITS SC (17:59)
[2024-12-04 21:41] LABS: Glucose - Point of Care 151 mg/dl (70-99)
[2024-12-04] MEDS: LANTUS SC (22:00)
[2024-12-04 23:42] VITALS: BP 126/57
[2024-12-05 03:53] LABS: Glucose - Point of Care 117 mg/dl (70-99)
[2024-12-05] MEDS: NOVOLOG FLEXPEN-MODERATE RESISTANCE SC (07:33)
[2024-12-05 08:23] VITALS: BP 137/64
[2024-12-05 08:29] LABS: Glucose - Point of Care 113 mg/dl (70-99)
[2024-12-05] MEDS: MIRALAX PO (10:11)
[2024-12-05] MEDS: SENOKOT-S PO ×3 (10:11→21:20)
[2024-12-05] MEDS: ASPIR LOW (ENTERIC COATED) 81 MG PO (10:12)
[2024-12-05] MEDS: TYLENOL 1000 MG PO ×3 (10:12→21:16)
[2024-12-05] MEDS: PROTONIX 40 MG PO (10:12)
[2024-12-05] MEDS: LIDOCAINE 4% PATCH 2 PATCH TOPICAL (10:12)
[2024-12-05] MEDS: COREG 25 MG PO ×2 (10:13→21:16)
[2024-12-05] MEDS: COZAAR 100 MG PO (10:15)
--- NOTE | 2024-12-05 10:58 | W.PN.HOSP.TC ---
Today's Communication/Plan
-
CM working on rehab
Assessment / Plan
Assessment / Plan
84yo F with PMHX of CVA, HTN, DM came with intractable lower back pain started after she was trying to reach something with her L arm. Has chronic back pain followed by , however usually can ambulate without issues. Recent MRI done without
acute findings, but was before change in the quality and strength of her pain. MRI back: No compression deformity. Multilevel mild to moderate discogenic and facet degenerative changes. L2-3: Minor central canal narrowing. L3-4: Mild central canal
narrowing. L4-5: Mild central canal stenosis. Mild bilateral foraminal narrowing without exiting nerve root compromise.
Will provide outpatient referral to ortho. medically stable for d/c
A/P:
#Significant ambularoty dysfunction 2/2 acute on chronic lower back pain due to lumbar radiculopathy
Hx of disk bulge
With significant decrease in ambulatory capacity and weakness during bedside transfers - MRI lumbar spine is reasonable
Pain mgmt
PT/OT: will need assistance upon d/c, CM for rehab
Stop oral prednisone
MRI back: No compression deformity. Multilevel mild to moderate discogenic and facet degenerative changes. L2-3: Minor central canal narrowing. L3-4: Mild central canal narrowing. L4-5: Mild central canal stenosis. Mild bilateral foraminal narrowing
without exiting nerve root compromise.
Will provide outpatient referral to ortho
#DM type 2 with neuropathy
Cont insulin, Accuchecks, add insulin SS
#Hx of CVA
#CAD, stable
#Essential HTN
cont home meds
DVT ppx lovenox
FUll code
I have spent at least 36min reviewing chart, test results and providing direct patient care
Anticipated Discharge: Within 24 hours
Subjective/Interval History
-
Date of Service: December 05, 2024
Objective Data
-
Vital Signs:
Vital Signs
Temp Pulse Resp BP Pulse Ox
98.5 F 70 18 137/64 98
12/05/24 08:23 12/05/24 10:13 12/05/24 08:23 12/05/24 10:13 12/05/24 08:23
I&O
12/04/24 12/05/24 12/06/24
06:59 06:59 06:59
Intake Total 840 / 840 960 / 960
Balance 840 / 840 960 / 960
[2024-12-05 12:17] LABS: Glucose - Point of Care 245 mg/dl (70-99)
[2024-12-05] MEDS: NOVOLOG FLEXPEN-MODERATE RESISTANCE 3 UNITS SC (12:35)
--- NOTE | 2024-12-05 14:21 | CM ---
Spoke with patient's son in law, Oziel, who stated that he and patient's daughter would like for patient to return home with VN through . They do not want to consider SNF as patient does not want to go and they feel that patient can be supported
at home. Patient's son in law stated that patient's daughter is out of town and he will not be available this evening to pick her up (and no one will be home). He stated that family can pick patient up in the morning.
Plan: Case management will continue to follow and assist with discharge planning. Home with VN. Will update attending.
--- NOTE | 2024-12-05 14:40 | W.DCSUMMARY ---
Addendum entered and electronically signed by Agustin Duque MD 12/06/24 11:45:
Discharge date 12/07/24
Original Note:
Discharge Summary
Discharge Data
Date of Admission: 12/04/24
Date of Discharge: 12/05/24
-
Pending Results: No
Hospital Course
84yo F with PMHX of chronic pancreatic duct dilation, CVA, HTN, DM came with intractable lower back pain started after she was trying to reach something with her L arm. Has chronic back pain followed by , however usually can ambulate
without issues. Recent MRI done without acute findings, but was before change in the quality and strength of her pain. MRI back: No compression deformity. Multilevel mild to moderate discogenic and facet degenerative changes. L2-3: Minor central
canal narrowing. L3-4: Mild central canal narrowing. L4-5: Mild central canal stenosis. Mild bilateral foraminal narrowing without exiting nerve root compromise. Family requested d/c home as they think that they will be able to care for her there.
Will provide outpatient referral to ortho. Medically stable for d/c
I have spent at least 36min reviewing chart, test results and providing direct patient care
Patient was managed for:
#Significant ambulatory dysfunction 2/2 acute on chronic lower back pain due to lumbar radiculopathy
#DM type 2 with neuropathy
#Hx of CVA
#CAD, stable
#Essential HTN
#Chronic pancreatic duct dilation
#mild chronic ALT elevation - outpatient f/u
Discharge Plan
-
Patient Disposition: Home with Home Care
Discharge Diagnosis/Procedures: radiculopathy
Diet: Low Sodium
Driving Restrictions: As prior to admission
Other Services: PT
Referrals:
Brett Arana MD [Active] - in three to four weeks (If back pain not subside)
Dickson Coronado MD [Family Provider] -
Prescriptions:
New
diclofenac sodium [Arthritis Pain (diclofenac)] 1 % gel
4 g topical QID Qty: 100 0RF
Rx Instructions:
apply to lower back for 7 days
oxycodone 5 mg tablet
5 mg PO Q8H PRN (Reason: Pain) Qty: 7 0RF
Continued
carvedilol [Coreg] 25 mg Tablet
25 mg PO BID
therapeutic multivitamin Tablet
1 tab PO DAILY
aspirin 81 mg Tablet,Delayed Release (Dr/Ec)
81 mg PO DAILY
atorvastatin 80 mg Tablet
80 mg PO QPM Qty: 30 0RF
losartan 50 mg Tablet
100 mg PO DAILY Qty: 60 0RF
insulin glargine-yfgn [Semglee(insulin glarg-yfgn)Pen] 100 unit/mL (3 mL) insulin pen
12 unit SC HS
Discharge Orders:
Discharge Patient (As Directed); Ordered 12/05/24
Ordered By: Agustin Duque
Discharge Date and Time
Print Language: MONGOLIAN
[2024-12-05 15:39] VITALS: BP 134/66
[2024-12-05] MEDS: LIPITOR 80 MG PO (17:12)
[2024-12-05] MEDS: LOVENOX 40 MG SC (17:12)
[2024-12-05] MEDS: NOVOLOG FLEXPEN-MODERATE RESISTANCE 1 UNITS SC (17:14)
[2024-12-05 17:17] LABS: Glucose - Point of Care 154 mg/dl (70-99)
[2024-12-05] MEDS: LANTUS 0.12 UNITS SC (21:17)
[2024-12-05 21:18] LABS: Glucose - Point of Care 182 mg/dl (70-99)
[2024-12-05 23:26] VITALS: BP 121/52
[2024-12-06 07:28] LABS: Glucose - Point of Care 118 mg/dl (70-99)
[2024-12-06 07:35] VITALS: BP 176/80
[2024-12-06] MEDS: COREG 25 MG PO (07:58)
[2024-12-06] MEDS: ASPIR LOW (ENTERIC COATED) 81 MG PO (07:58)
[2024-12-06] MEDS: TYLENOL 1000 MG PO (07:58)
[2024-12-06] MEDS: ULTRAM 100 MG PO (07:59)
[2024-12-06] MEDS: COZAAR 100 MG PO (07:59)
[2024-12-06] MEDS: MIRALAX 17 GRAMS PO (07:59)
[2024-12-06] MEDS: SENOKOT-S 2 TABLET PO (07:59)
[2024-12-06] MEDS: PROTONIX 40 MG PO (07:59)
[2024-12-06] MEDS: FLUSH (NSS) 1 FLUSH IV (08:00)
[2024-12-06] MEDS: LIDOCAINE 4% PATCH 2 PATCH TOPICAL (08:00)
[2024-12-06] MEDS: NOVOLOG FLEXPEN-MODERATE RESISTANCE SC (08:17)
--- NOTE | 2024-12-06 10:58 | VNURNOTE ---
Home Health Liaison met with patient at bedside to discuss [facility] nurse/therapy, visits, schedule and homebound status. Patient is agreeable and understands that visits at home will be 2-3 x per week to assess and teach medical management. Pet policy
reviewed. [facility] .
[facility]
--- NOTE | 2024-12-06 11:43 | W.PN.HOSP.TC ---
Today's Communication/Plan
-
remains medcially stable for d/c
Assessment / Plan
Assessment / Plan
84yo F with PMHX of CVA, HTN, DM came with intractable lower back pain started after she was trying to reach something with her L arm. Has chronic back pain followed by , however usually can ambulate without issues. Recent MRI done without
acute findings, but was before change in the quality and strength of her pain. MRI back: No compression deformity. Multilevel mild to moderate discogenic and facet degenerative changes. L2-3: Minor central canal narrowing. L3-4: Mild central canal
narrowing. L4-5: Mild central canal stenosis. Mild bilateral foraminal narrowing without exiting nerve root compromise.
Will provide outpatient referral to ortho. medically stable for d/c
A/P:
#Significant ambularoty dysfunction 2/2 acute on chronic lower back pain due to lumbar radiculopathy
Hx of disk bulge
With significant decrease in ambulatory capacity and weakness during bedside transfers - MRI lumbar spine is reasonable
Pain mgmt
PT/OT: will need assistance upon d/c, CM for rehab
Stop oral prednisone
MRI back: No compression deformity. Multilevel mild to moderate discogenic and facet degenerative changes. L2-3: Minor central canal narrowing. L3-4: Mild central canal narrowing. L4-5: Mild central canal stenosis. Mild bilateral foraminal narrowing
without exiting nerve root compromise.
Will provide outpatient referral to ortho
#DM type 2 with neuropathy
Cont insulin, Accuchecks, add insulin SS
#Hx of CVA
#CAD, stable
#Essential HTN
cont home meds
DVT ppx lovenox
FUll code
I have spent at least 36min reviewing chart, test results and providing direct patient care
Anticipated Discharge: Today
Subjective/Interval History
-
Date of Service: December 06, 2024
Objective Data
-
Vital Signs:
Vital Signs
Temp Pulse Resp BP Pulse Ox
98.1 F 64 18 176/80 96
12/06/24 07:35 12/06/24 07:59 12/06/24 07:35 12/06/24 07:59 12/06/24 07:57
I&O
12/05/24 12/06/24 12/07/24
06:59 06:59 06:59
Intake Total 960 / 960 720 / 720
Balance 960 / 960 720 / 720
Review of Systems
-
History Source: Patient
All other systems: Reviewed and negative
Neuro: Reports Headache
Physical Exam
-
General: No Apparent Distress
HEENT: Normocephalic
Musculoskeletal: Other (back pain without chages)
Skin: Warm
Neuro: Awake, Alert, Oriented, AO x 3, No Motor Deficits, Nonfocal/Grossly Intact and No Sensory Deficits
Psych: Calm
[2024-12-06 11:48] LABS: Glucose - Point of Care 250 mg/dl (70-99)
[2024-12-06] MEDS: NOVOLOG FLEXPEN-MODERATE RESISTANCE 5 UNITS SC (12:04)
[2024-12-06 12:46] VITALS: BP 110/62
--- NOTE | 2024-12-06 13:32 | CM ---
Spoke with patient who stated that she is ready to return home. Family will pick her up. She signed IMM, it was reviewed and now on chart. Family is on the way to pick patient up.
Plan: Case management will continue to follow and assist with discharge planning. Patient will return home with VN through .
== END 2024-12-06 13:58 | disposition home health service (06) | DRG 552 ==
LOC: 4 EAST ACU 08:34
PROVIDERS: ADMITTING PHYSICIAN Family Medicine; ATTENDING PHYSICIAN Internal Medicine; EMERGENCY PHYSICIAN Emergency Medicine; FAMILY PHYSICIAN Family Medicine
DX: M54.16 Radiculopathy, lumbar region (principal); E11.40 Type 2 diabetes mellitus with diabetic neuropathy, unspecified; Z86.73 Personal history of transient ischemic attack (TIA), and cerebral infarction without residual deficits; I25.10 Atherosclerotic heart disease of native coronary artery without angina pectoris; I10 Essential (primary) hypertension; K86.89 Other specified diseases of pancreas; Z95.5 Presence of coronary angioplasty implant and graft; Z88.0 Allergy status to penicillin; Z88.5 Allergy status to narcotic agent; Z88.2 Allergy status to sulfonamides; Z79.82 Long term (current) use of aspirin; Z79.4 Long term (current) use of insulin; Z79.899 Other long term (current) drug therapy; E78.00 Pure hypercholesterolemia, unspecified; K21.9 Gastro-esophageal reflux disease without esophagitis
CPT/HCPCS: 72148; 80048; 80076; 81003; 82962; 83036; 85025; 93005; 96372; 96374; 97116; 97163; 97167; 97530; 97535; 99284

== ENCOUNTER 2025-01-06 15:07 | Observation (INO) | payer MEDICARE, BC, SELFPAY ==
[2025-01-06 12:41] VITALS: BMI 22.0
[2025-01-06 12:58] LABS: % Basophils 1.4 % (0-2); % Eosinophils 2.8 % (0-6); % Immature Granulocytes 0.2 % (0-0.5); % Lymphocytes 28.3 % (20.5-51.1); % Monocytes 9.6 % (1.7-9.3); % Neutrophils 57.7 % (42.2-75.2); Absolute Basophils 0.1 10^3/uL (0-0.2); Absolute Eosinophils 0.2 10^3/uL (0-0.7); Absolute Lymphocytes 1.8 10^3/uL (1.2-3.4); Absolute Monocytes 0.6 10^3/uL (0.1-0.6); Absolute Neutrophils 3.7 10^3/uL (1.4-6.5); Hematocrit 33.3 % (37.0-47.0); Hemoglobin 11.6 g/dL (12.0-16.0); Mean Corp Hgb Conc. 34.8 g/dL (33.0-37.0); Mean Corpuscular Hgb 29.7 pg (27.0-31.0); Mean Corpuscular Volume 85.2 fL (81.0-99.0); Mean Platelet Volume 9.4 fL (7.4-10.4); Nucleated Red Blood Cells % 0 %; Platelet Count 171 10^3/uL (130-400); Red Blood Cell Count 3.91 10^6/uL (4.20-5.40); Red Cell Dist. Width 13.6 % (11.5-14.5); White Blood Cell Count 6.5 10^3/uL (4.8-10.8)
[2025-01-06 13:12] LABS: ALT (SGPT) 23 U/L (0-35); AST (SGOT) 30 U/L (14-36); Alkaline Phosphatase 50 U/L (38-126); Blood Urea Nitrogen 26 mg/dl (7-17); Calcium 9.4 mg/dl (8.4-10.2); Carbon Dioxide 27 mmol/L (22-30); Chloride 109 mmol/L (98-107); Estimated Creatinine Clearance 39 ml/min; Glucose 165 mg/dl (70-99); Potassium 4.4 mmol/L (3.5-5.1); Sodium 139 mmol/L (135-145); Total Bilirubin 1.6 mg/dl (0.2-1.3); Total Protein 6.8 g/dl (6.3-8.2); eGFR > 60.00
[2025-01-06] MEDS: TORADOL 30 MG IV (13:12)
[2025-01-06] MEDS: ZOFRAN 4 MG IV (13:12)
[2025-01-06 13:17] LABS: Troponin I < 0.012 ng/ml
--- NOTE | 2025-01-06 13:35 | ED.CVA ---
History of Present Illness
General
Chief Complaint: CVA/TIA Symptoms
Source: patient and family
Exam Limitations: none
Time Seen by Provider: 01/06/25 12:54
Onset of Stroke Symptoms
Onset of symptoms known: Yes
Date of onset of symptoms: 01/06/25
History of Present Illness
History of Present Illness:
84-year-old female presents with headache dizziness
Has had a stroke previously she is on aspirin,
Stroke alert was called by nursing in triage, symptoms started at 11 AM, stroke alert at 1229
NIH stroke score 2 from triage
I evaluated the patient she has been seen by neurology
Past History
Past History
ED Past Medical History: CAD, GERD, HTN, Hypercholesterolemia and Other ('Lung problem')
ED Past Surgical History: Appendectomy, Cardiac (Stent) and Orthopedic
Social History
Tobacco: Non-smoker
Alcohol: None
Drug: None
Living: with family
Review of Systems
Review of Systems
All Other Systems: Not applicable
Constitutional: Denies fever
EENT: Reports no symptoms
Respiratory: Reports no symptoms
Cardiac: Reports no symptoms
ABD/GI: Reports no symptoms
Neurological: Reports dizzy
Hematologic/Lymphatic: Reports no symptoms
Phy Exam
Physical Exam
Physical Exam:
Physical Exam
General: no apparent distress, not acutely ill
Neck: No
Heart: s1/s2 regular rate and rhythm, no murmur. equal radial pulses.
Lungs: no acute respiratory distress. clear bilaterally
Abdomen: Not tender
Neuro: alert and oriented. Moves all extremities
Skin: no rash
Psychiatric: well kept. interactive and cooperative
Extremities: no edema.
Course
Orders/Labs/Results
Orders:
Orders
01/06/25 12:38
CT HEAD STROKE ALERT W/o Cont Urgent
Reason For Exam: couble vision headache slurred speech
01/06/25 12:43
Electrocardiogram (*1) Urgent
Reason for Study: TIA/Stroke
01/06/25 12:44
EKG- Treatment ONCE
01/06/25 12:47
CMP [Comprehensive Metabolic Panel] Urgent
Complete Blood Count/With Diff Urgent
Troponin I Urgent
01/06/25 13:09
Ketorolac [Toradol] 30 mg IV NOW STA
Ondansetron Injectable [Zofran] 4 mg IV NOW STA
01/06/25 13:41
Metoclopramide [Reglan] 10 mg IV NOW STA
01/06/25 14:59
Admit/Transfer Patient As Directed
Co-Sign Provider:
Level of Care: Observation services
Assign to:: Telemetry
Physician / Group: raulito
Diagnosis: migraine
Reason for Telemetry: Arrhythmia
Date to Stop Telemetry: 01/09/25
Time to Stop Telemetry: 11:00
Code Status As Directed
Resuscitation Status: Full Code
PRN Pain Medication Management As Directed
May give lesser potent ordered pain med per pt: Yes
preference::
Protocol:: Medication orders for pain may be administered in a
manner that supports deferring to patient preference
when the pt is:
- Requesting an ordered lesser potent pain medication.
Least to most potent pain medications are defined
as: acetaminophen < NSAID < tramadol < opioids
(morphine, oxycodone, hydromorphone).
- Requesting a lesser dose of the same medication IF
ORDERED.
- Requesting a less intrusive route of administration
if both routes are prescribed by the provider (PO <
IV).
01/06/25 Dinner
2000 calorie (17 carb) Diabetic
At Your Request: Limited Participation
Does patient need a safe tray?: No
01/06/25 16:54
Dextrose 50%-Water [Dextrose 50% Syringe] 12.5 grams IV [id number] PRN
Glucagon [GlucaGen] 1 mg IM PRN PRN
Insulin Aspart Corrective Low [Novolog Flexpen-Low Resistance] See Protocol SC AC
01/06/25 16:54
MRI Brain [MR Brain Without Contrast] Routine
Comment:
Reason For Exam: headache
Recent pill cam endoscopy?: No
Activity As Directed
Activity Level: As Tolerated
Bedside Glucose Monitoring As Directed
Frequency: AC&HS
Additional Instructions:: Change to q6h if pt on TPN, tube feeding or not eating
Pneumatic Compression Sleeves As Directed
Type: Knee high
Vital Signs As Directed
Frequency: Per unit guidelines
DX Deep Vein Thrombosis Video Routine
01/07/25 06:00
Complete Blood Count/With Diff IN AM
Comprehensive Metabolic Panel IN AM
Glycohemoglobin (HgbA1c) IN AM
01/09/25 11:00
DC Protocol for Telemetry ONCE
Abnormal Lab Results
01/06/25
12:47
RBC 3.91 L 10^6/uL
(4.20-5.40)
Hgb 11.6 L g/dL
(12.0-16.0)
Hct 33.3 L %
(37.0-47.0)
Monocytes % 9.6 H %
(1.7-9.3)
Chloride 109 H mmol/L
(98-107)
BUN 26 H mg/dl
(7-17)
Glucose 165 H mg/dl
(70-99)
Total Bilirubin 1.6 H mg/dl
(0.2-1.3)
01/06/25 12:47
01/06/25 12:47
Vital Signs
Initial and Last Documented VS:
Initial Vital Signs
Temp Pulse Resp Pulse Ox
98.6 F 71 16 98
01/06/25 12:34 01/06/25 12:34 01/06/25 12:34 01/06/25 12:34
Last Documented Vital Signs
Temp Pulse Resp BP Pulse Ox
98.6 F 62 19 144/86 97
01/06/25 12:34 01/06/25 16:45 01/06/25 16:45 01/06/25 16:00 01/06/25 16:30
MDM/Problems Addressed
Differential Diagnosis Includes:
Stroke complicated migraine recrudescence intracerebral hemorrhage
MDM/Problems Addressed:
Headache aphasia
Chronic conditions affecting care:
Prior stroke
Chronic conditions affecting care: Arrhythmia
Acute Exacerbation and/or Progression of Chronic Illness: Arrhythmia
*Radiology
Radiology exam reviewed: radiology read reviewed
*Pulse Oximetry
Patient hypoxic: no
*EKG
Interpreted by ED Provider?: Yes
Interpretation: abnormal
Comparison EKG: no comparison EKG present
Heart Rate: 78
Rate: normal
Rhythm: sinus
Ischemia: non-specific ST changes
*Iuss Analyst Interpretation
Rate: normal
Interpretation: normal
Heart Rate: 78
Rhythm: sinus
*Critical Care Note
Total Time (30-74mins, 75-104mins- exclusive of procedures): Not Applicable
ED Attending Note
-
Portions of this chart may have been created with voice recognition software.� Occasional wrong word or��sound alike� substitutions may have occurred due to the inherent limitations of voice recognition software.
Discharge Plan
Departure
Patient Disposition: Admit
Date of Disposition: 01/06/25
Time of Disposition: 13:43
Admit to: Telemetry
Presentation/result/management discussed w/ accepting MD/DO: Hospitalist
Patient with high blood pressure during this ER visit?: Yes
Condition: Fair
Covid-19: Not Applicable
Discharge Problem:
Complicated migraine, CVA
Interventions
Interventions:
*Risk Screen - Suicide Last Done: 01/06/25 12:34
*General Assessment Last Done: 01/06/25 12:34
*Neglect/Abuse Screening Last Done: 01/06/25 12:34
*ED- Fall Risk Assessment Last Done: 01/06/25 12:34
*ED COVID-19 Vaccine History Last Done: 01/06/25 12:34
*Nursing Disposition Last Done: 01/06/25 16:51
ED- Pulmonary Assessment Last Done: 01/06/25 12:46
ED- Neurological Assessment Last Done: 01/06/25 12:46
ED- Cardiac Assessment Last Done: 01/06/25 12:46
ED Swallowing Screen Last Done: 01/06/25 14:00
Discharge Date and Time
Discharge Date/Time: 01/06/25 16:52
--- NOTE | 2025-01-06 13:47 | CON.NEURO ---
Neuro Assessment/Plan
Assessment
paroxysmal event - most likely complicated migraine (unilateral, severe, photophobia) though not throbbing
chronic stroke left thalamus
Head CT imgs rev'd, diffuse atrophy, and chronic right thalamic stroke
Plan
brain MRI w/o contrast for increased headache frequency
stroke secondary prevention continue asa 81, atorvastatin 80
Consultation
Order
Date of Consultation: 01/06/25
Requesting Provider: Brett Gallo
Reason for Consult: Stroke alert
Subjective/Objective
Subjective Data
Date of Service: January 06, 2025
stroke alert 12:29 pm
LKN 11 am
84 year old woman h/o right thalamic stroke, CAD, HTN, HLD, diabetes, presenting with initially occipital headache, dizziness, double vision. the headache moved above her right eye, and then moved to left temporal/scalp burning pain severe. the
double vision resolved, and now blurry vision. dizziness is improved. had this same event 3 times this week; previously happened infrequently/she is unable to specify.
Objective Data
Vital Signs
Temp Pulse Resp Pulse Ox
37.0 C 58 12 98
01/06/25 12:34 01/06/25 13:15 01/06/25 13:15 01/06/25 13:15
Lab Results
01/06/25 12:47
01/06/25 12:47
Sodium 139 mmol/L (135-145) 01/06/25 12:47
Potassium 4.4 mmol/L (3.5-5.1) 01/06/25 12:47
BUN 26 mg/dl (7-17) H 01/06/25 12:47
Glucose 165 mg/dl (70-99) H 01/06/25 12:47
Calcium 9.4 mg/dl (8.4-10.2) 01/06/25 12:47
Patient Allergies
codeine Allergy (Verified 01/06/25 12:34)
Hives
Penicillins Allergy (Verified 01/06/25 12:34)
Hives
Sulfa (Sulfonamide Antibiotics) Allergy (Verified 01/06/25 12:34)
Really sick
CVA Assessment
Onset of Stroke Symptoms
Onset of symptoms known: Yes
Date of onset of symptoms: 01/06/25
Time of onset of symptoms: 11:00
NIH Stroke Score
Level of Consciousness: 0 - Alert
LOC Questions: 0-Answers both correctly
LOC Commands: 0-Performs both correctly
Best Horizontal Gaze: 0-Normal
Visual Cole: 0=Normal, no visual loss
Facial Palsy: 1=Minor paralysis
Motor - Right Arm: 0=No drift 10 seconds
Motor - Left Arm: 0=No drift 10 seconds
Motor - Right Le-No drift 5 seconds
Motor - Left Le-No drift 5 seconds
Limb Ataxia: 0-Absent
Sensation: 0-Normal
Best Language: 0-No aphasia
Dysarthria: 0-Normal
Extinction and Inattention: 0-No abnormality
NIH Total Score:: 1
Tenecteplase Contraindications
Inclusion and Exclusion criteria reviewed: Yes
Physical Exam
-
AAOx3, speech clear, mild semantic aphasia (identifies mouse as 'animal' and stoplight and 'stop sign')
VFF, EOMI, face symmetric
full strength b/l UE/LE
sensation intact to touch
tender right occipital nerve nonradiating; cervical rotation limited but symmetric
Medications
-
Home Medications
�Medication �Instructions �Recorded
aspirin 81 mg tablet,delayed 81 mg PO DAILY Blood Clot 01/23/24
release Prevention/Tx
carvedilol 25 mg tablet (Coreg) 25 mg PO BID Heart Failure 01/23/24
therapeutic multivitamin 1 tab PO DAILY Supplement 01/23/24
atorvastatin 80 mg tablet 80 mg PO QPM #30 tabs 01/27/24
losartan 50 mg tablet 100 mg (2 x 50 mg) PO DAILY #60 04/26/24
tabs
insulin glargine-yfgn 100 unit/mL 12 unit SC HS 11/30/24
(3 mL) subcutaneous pen (Semglee
(insulin glargine-yfgn) Pen)
diclofenac sodium 1 % topical gel 4 g topical QID #100 grams 12/05/24
(Arthritis Pain (diclofenac))
oxycodone 5 mg tablet 5 mg PO Q8H PRN Pain #7 tabs 12/05/24
[2025-01-06] MEDS: REGLAN 10 MG IV (13:51)
[2025-01-06 14:00] VITALS: BP 134/65
[2025-01-06 15:00] VITALS: BP 151/73
[2025-01-06 16:00] VITALS: BP 144/86
[2025-01-06 17:07] VITALS: BP 161/76; BMI 26.0
--- NOTE | 2025-01-06 17:52 | HPS.HSE ---
Family Physician
-
Family Physician: Dickson Coronado
Chief Complaint
-
headache
History of Present Illness
84-year-old female past medical history of CAD, CVA, hypertension, diabetes, mild chronic LFT elevation, chronic pancreatic duct presenting with occipital headaches, dizziness and double vision. Headache moved over the right eye and then moved to
left rastafari/scalp burning pain severe. Double vision resolved then became blurry now resolved. She has this events like this 3 times a week. Did have some nausea no abdominal pain. No fevers or chills. Did have some slurred speech earlier in
the day. No focal neurological deficits, vertigo, headache.
Medical History
Past Medical History
Past Medical History: Reports None and Other (CAD, CVA, hypertension, diabetes, mild chronic LFT elevation, chronic pancreatic duct )
Past Surgical History: Reports None
Social History
Tobacco: Non-smoker
Alcohol: None
Drug: None
Family History
Family History: Not pertinent
Allergies / Home Medications
Allergies reflects when Allergies were last updated in [employer].
Home Medications with original date entered in [employer]
Allergy/Medication List:
Allergies
Allergy/AdvReac Type Severity Reaction Status Date / Time
codeine Allergy Hives Verified 01/06/25 12:34
Penicillins Allergy Hives Verified 01/06/25 12:34
Sulfa (Sulfonamide Allergy Really sick Verified 01/06/25 12:34
Antibiotics)
Home Medications
aspirin 81 mg tablet,delayed release 81 mg PO DAILY Blood Clot Prevention/Tx 01/23/24
carvedilol 25 mg tablet (Coreg) 25 mg PO BID Heart Failure 01/23/24
atorvastatin 80 mg tablet 80 mg PO QPM #30 tabs 01/27/24
insulin glargine-yfgn 100 unit/mL (3 mL) subcutaneous pen (Semglee (insulin glargine-yfgn) Pen) 12 unit SC HS 11/30/24
cholecalciferol (vitamin D3) 50 mcg (2,000 unit) tablet 50 mcg PO DAILY 01/06/25
hydralazine 25 mg tablet 25 mg PO BID 01/06/25
losartan 50 mg tablet 50 mg PO BID 01/06/25
pantoprazole 40 mg tablet,delayed release 40 mg PO BID 01/06/25
polyvinyl alcohol 1.4 % eye drops (Artificial Tears (polyvinyl alcohol)) 1 drp BOTH EYES DAILYPRN PRN dry eyes 01/06/25
therapeutic multivitamin 1 tab PO DAILY 01/06/25
Review of Systems
-
History Source: Patient
A 12 point ROS was completed and negative except as noted: Yes
Constitutional: Reports No Symptoms
EENT: Reports No Symptoms
Respiratory: Reports No Symptoms
Cardiac: Reports No Symptoms
Abdomen/GI: Reports No Symptoms
: Reports No Symptoms
Musculoskeletal: Reports No Symptoms
Skin: Reports No Symptoms
Neurological: Reports No Symptoms
Endocrine: Reports No Symptoms
Hematologic/Lymphatic: Reports No Symptoms
Psych: Reports No Symptoms
Physical Exam
Vital Signs
Vital Signs
Temp Pulse Resp BP Pulse Ox
97.7 F 60 18 161/76 95
01/06/25 17:07 01/06/25 17:07 01/06/25 17:07 01/06/25 17:07 01/06/25 17:07
Physical Exam
General: Well Developed, Well Nourished and No Apparent Distress
HEENT: NormoCephalic, Moist mucous membranes and Atraumatic
Respiratory: Clear
Cardiac: S1/S2 and Regular Rhythm; No Murmur or Rub
GI: Soft, Non Tender, Non Distended and Normal Bowel Sounds; No Organomegaly
Rectal: Deferred by Provider
Musculoskeletal: No Clubbing, No Cyanosis and No Edema
Skin: No Rash
Neuro: Nonfocal/grossly intact
Laboratory Results
-
01/06/25 12:47
01/06/25 12:47
Laboratory Results
Total Bilirubin 1.6 mg/dl (0.2-1.3) H 01/06/25 12:47
AST 30 U/L (14-36) 01/06/25 12:47
ALT 23 U/L (0-35) 01/06/25 12:47
Alkaline Phosphatase 50 U/L (38-126) 01/06/25 12:47
Troponin I < 0.012 ng/ml 01/06/25 12:47
Data Reviewed
-
Lab Data: Labs Reviewed by me
Old Records: Reviewed
Impression/Plan
-
IMPRESSION:
PLAN:
# Headache likely complex migraine
- Check MRI brain to rule out stroke
- Neurology follow-up
- Patient given ketorolac, Reglan, Zofran
- Likely needs to be on prophylactic treatment for migraines
History of CVA
- Continue aspirin and statin
Hypertension
- Continue hydralazine, losartan, Coreg
Type 2 diabetes
- Continue glargine 12 units
- Insulin sliding scale
Chronic pancreatic duct dilatation
Mild chronic ALT elevation
Full code
DVT prophylaxis SCDs
Regular diet
[2025-01-06 18:16] LABS: Glucose - Point of Care 140 mg/dl (70-99)
[2025-01-06] MEDS: LIPITOR 80 MG PO (18:17)
[2025-01-06] MEDS: NOVOLOG FLEXPEN-LOW RESISTANCE SC (18:17)
--- NOTE | 2025-01-06 18:32 | PTCARENOTE ---
pt presents from ED via stretcher. pt is AAO*3, Vss, room air. NIH-2. pt denies any pain. pt is oriented to the room. call ndiaye within the reach. plan of care ongoing.
[2025-01-06 19:34] VITALS: BP 94/62
[2025-01-06] MEDS: APRESOLINE 25 MG PO (21:05)
[2025-01-06] MEDS: COZAAR 50 MG PO (21:06)
[2025-01-06] MEDS: PROTONIX 40 MG PO (21:06)
[2025-01-06] MEDS: COREG 25 MG PO (21:06)
[2025-01-06 21:40] LABS: Glucose - Point of Care 190 mg/dl (70-99)
[2025-01-06] MEDS: FIORICET 2 TAB PO (21:58)
[2025-01-06] MEDS: LANTUS 0.12 UNITS SC (21:59)
[2025-01-06 23:39] VITALS: BP 102/56
[2025-01-07 03:35] VITALS: BP 125/64
[2025-01-07] MEDS: TORADOL 30 MG IV (04:58)
[2025-01-07 07:00] VITALS: BP 161/73
[2025-01-07 07:22] LABS: Glucose - Point of Care 101 mg/dl (70-99)
[2025-01-07] MEDS: COZAAR 50 MG PO ×2 (08:03→20:04)
[2025-01-07] MEDS: NOVOLOG FLEXPEN-LOW RESISTANCE SC (08:03)
[2025-01-07] MEDS: VITAMIN D3 (cholecalciferol) 50 MCG PO (08:05)
[2025-01-07] MEDS: ASPIR LOW (ENTERIC COATED) 81 MG PO (08:05)
[2025-01-07] MEDS: APRESOLINE 25 MG PO ×2 (08:05→20:04)
[2025-01-07] MEDS: THERAGRAN 1 TABLET PO (08:05)
[2025-01-07] MEDS: COREG 25 MG PO ×2 (08:05→20:03)
[2025-01-07] MEDS: PROTONIX 40 MG PO ×2 (08:06→20:04)
[2025-01-07 08:12] LABS: ALT (SGPT) 20 U/L (0-35); AST (SGOT) 28 U/L (14-36); Albumin 3.5 g/dl (3.5-5.0); Alkaline Phosphatase 42 U/L (38-126); Blood Urea Nitrogen 28 mg/dl (7-17); Calcium 9.1 mg/dl (8.4-10.2); Carbon Dioxide 28 mmol/L (22-30); Chloride 108 mmol/L (98-107); Estimated Creatinine Clearance 34 ml/min; Glucose 93 mg/dl (70-99); Potassium 4.6 mmol/L (3.5-5.1); Sodium 139 mmol/L (135-145); Total Bilirubin 1.3 mg/dl (0.2-1.3); Total Protein 6.1 g/dl (6.3-8.2); eGFR 56.25
[2025-01-07 11:03] VITALS: BP 126/62
[2025-01-07 11:40] LABS: Glucose - Point of Care 153 mg/dl (70-99)
[2025-01-07 12:33] LABS: % Basophils 1.6 % (0-2); % Eosinophils 3.4 % (0-6); % Immature Granulocytes 0.4 % (0-0.5); % Lymphocytes 38.4 % (20.5-51.1); % Monocytes 8.7 % (1.7-9.3); % Neutrophils 47.5 % (42.2-75.2); Absolute Basophils 0.1 10^3/uL (0-0.2); Absolute Eosinophils 0.2 10^3/uL (0-0.7); Absolute Lymphocytes 2.2 10^3/uL (1.2-3.4); Absolute Monocytes 0.5 10^3/uL (0.1-0.6); Absolute Neutrophils 2.7 10^3/uL (1.4-6.5); Hematocrit 30.4 % (37.0-47.0); Hemoglobin 10.7 g/dL (12.0-16.0); Mean Corp Hgb Conc. 35.2 g/dL (33.0-37.0); Mean Corpuscular Hgb 29.6 pg (27.0-31.0); Mean Corpuscular Volume 84.2 fL (81.0-99.0); Mean Platelet Volume 10.4 fL (7.4-10.4); Nucleated Red Blood Cells % 0 %; Platelet Count 169 10^3/uL (130-400); Red Blood Cell Count 3.61 10^6/uL (4.20-5.40); Red Cell Dist. Width 13.6 % (11.5-14.5); White Blood Cell Count 5.6 10^3/uL (4.8-10.8)
--- NOTE | 2025-01-07 12:51 | W.PN.HOSP.TC ---
Today's Communication/Plan
-
Monitor vital signs see plan
Neurology following
MRI pending
PT evaluation
Assessment / Plan
Assessment / Plan
General: Well Developed, Well Nourished and No Apparent Distress
HEENT: NormoCephalic, Moist mucous membranes and Atraumatic
Respiratory: Clear
Cardiac: S1/S2 and Regular Rhythm; No Murmur or Rub
GI: Soft, Non Tender, Non Distended and Normal Bowel Sounds
Musculoskeletal: No Edema
Skin: No Rash
Neuro: Nonfocal/grossly intact
Headache likely complex migraine
- Check MRI brain to rule out stroke as hx of previous CVA
- Neurology follow-up
- Patient given ketorolac, Reglan, Zofran on admission
- Likely needs to be on prophylactic treatment for migraines
History of CVA
- Continue aspirin and statin
Hypertension
- Continue hydralazine, losartan, Coreg
Type 2 diabetes
- Continue glargine 12 units
- Insulin sliding scale
A1c 7
Chronic pancreatic duct dilatation
Mild chronic ALT elevation
Full code
DVT prophylaxis SCDs
Anticipated Discharge: Within 24 hours
Subjective/Interval History
-
Date of Service: January 07, 2025
denies pain
Objective Data
-
Labs:
Laboratory Results
01/07/25
06:57
WBC 5.6
Hgb 10.7 L
Hct 30.4 L
Plt Count 169
Sodium 139
Potassium 4.6
Chloride 108 H
Carbon Dioxide 28
BUN 28 H
Creatinine 1.0
Glucose 93
Calcium 9.1
Total Bilirubin 1.3
AST 28
ALT 20
Alkaline Phosphatase 42
Vital Signs:
Vital Signs
Temp Pulse Resp BP Pulse Ox
98.3 F 66 18 126/62 97
01/07/25 11:03 01/07/25 11:03 01/07/25 11:03 01/07/25 11:03 01/07/25 11:03
[2025-01-07] MEDS: NOVOLOG FLEXPEN-LOW RESISTANCE 1 UNITS SC (13:31)
--- NOTE | 2025-01-07 14:11 | CM ---
Met with patient to obtain information for assessment. Patient stated that she is temporarily staying with her daughter and her daughter's family in a three story home with two steps to enter. She described herself as independent with her ADLs,
personal care, dressing and bathing. She can do nurses' aide, cook, clean and do laundry. She drives and can get to her appointments and does all of her own shopping. Patient stated that she has been to a SNF in the past. She is current with
[facility]. Will put in velia referral (resumption of care) so that they can continue services, once patient returns home.
Patient has a prescription plan and uses, [facility] [place] for all of her medications.
Patient's PCP is, Dickson Coronado.
OBS letter provided to patient, reviwed, signed mathew on chart,
Plan: Case management will continue to follow and assist with discharge planning. Home when stable with resumption of services from .
[2025-01-07 14:57] VITALS: BP 142/73; PULSE 64
[2025-01-07 15:15] VITALS: BP 132/64
--- NOTE | 2025-01-07 16:21 | VNURNOTE ---
Chart reviewed. Patient is current with [facility] nursing, PT. Will continue to follow hospital course and DC plans.
[2025-01-07 17:40] LABS: Glucose - Point of Care 207 mg/dl (70-99)
[2025-01-07] MEDS: LIPITOR 80 MG PO (17:43)
[2025-01-07] MEDS: NOVOLOG FLEXPEN-LOW RESISTANCE 2 UNITS SC (17:43)
--- NOTE | 2025-01-07 17:47 | W.PN.NEURO.1 ---
Today's Communication / Plan
-
can go home with nortriptyline 25 mg bedtime, fioricet 15 tab, discussed with patient and her dtr Fioricet max 4 days/month or it can make headaches worse
Neuro Assessment/Plan
Assessment
complicated migraine
right occipital neuralgia
chronic stroke left thalamus
Head CT imgs rev'd, diffuse atrophy, and chronic right thalamic stroke
brain MRI imgs rev'd, no tumor, no acute stroke
Plan
stroke secondary prevention continue asa 81, atorvastatin 80
can go home with nortriptyline 25 mg bedtime, fioricet 15 tab, discussed with patient and her dtr Fioricet max 4 days/month or it can make headaches worse
Subjective/Objective
Subjective Data
Date of Service: January 07, 2025
did have some improvement with Fioricet, toradol, Reglan yesterday. Today headache returns, on top of her head, 05/01
Objective Data
Vital Signs
Temp Pulse Resp BP Pulse Ox
36.6 C 65 18 132/64 96
01/07/25 15:15 01/07/25 15:15 01/07/25 15:15 01/07/25 15:15 01/07/25 15:15
Lab Results
01/07/25 06:57
01/07/25 06:57
Sodium 139 mmol/L (135-145) 01/07/25 06:57
Potassium 4.6 mmol/L (3.5-5.1) 01/07/25 06:57
BUN 28 mg/dl (7-17) H 01/07/25 06:57
Glucose 93 mg/dl (70-99) 01/07/25 06:57
Calcium 9.1 mg/dl (8.4-10.2) 01/07/25 06:57
Patient Allergies
codeine Allergy (Verified 01/06/25 12:34)
Hives
Penicillins Allergy (Verified 01/06/25 12:34)
Hives
Sulfa (Sulfonamide Antibiotics) Allergy (Verified 01/06/25 12:34)
Really sick
Physical Exam
-
AAOx3, speech clear, mild semantic aphasia (identifies mouse as 'animal' and stoplight and 'stop sign')
VFF, EOMI, face symmetric
full strength b/l UE/LE
sensation intact to touch
tender right occipital nerve nonradiating; cervical rotation limited but symmetric
[2025-01-07 20:00] VITALS: BP 128/61
[2025-01-07 21:36] LABS: Glucose - Point of Care 156 mg/dl (70-99)
[2025-01-07] MEDS: LANTUS 0.12 UNITS SC (21:56)
[2025-01-08] VITALS: BP 130/59
[2025-01-08 03:21] VITALS: BP 133/59
[2025-01-08 07:15] VITALS: BP 156/75
[2025-01-08 07:49] LABS: Hematocrit 32.1 % (37.0-47.0); Hemoglobin 10.9 g/dL (12.0-16.0); Mean Corpuscular Volume 85.4 fL (81.0-99.0); Mean Platelet Volume 9.5 fL (7.4-10.4); Platelet Count 161 10^3/uL (130-400); Red Blood Cell Count 3.76 10^6/uL (4.20-5.40); Red Cell Dist. Width 13.4 % (11.5-14.5); White Blood Cell Count 5.9 10^3/uL (4.8-10.8)
[2025-01-08 08:15] LABS: Blood Urea Nitrogen 27 mg/dl (7-17); Carbon Dioxide 26 mmol/L (22-30); Chloride 111 mmol/L (98-107); Estimated Creatinine Clearance 34 ml/min; Glucose 106 mg/dl (70-99); Potassium 4.3 mmol/L (3.5-5.1); Sodium 140 mmol/L (135-145); eGFR 56.25
[2025-01-08 08:33] LABS: Glucose - Point of Care 90 mg/dl (70-99)
[2025-01-08] MEDS: NOVOLOG FLEXPEN-LOW RESISTANCE SC (08:38)
[2025-01-08] MEDS: THERAGRAN 1 TABLET PO (09:02)
[2025-01-08] MEDS: COZAAR 50 MG PO (09:02)
[2025-01-08] MEDS: COREG 25 MG PO (09:02)
[2025-01-08] MEDS: VITAMIN D3 (cholecalciferol) 50 MCG PO (09:02)
[2025-01-08] MEDS: PROTONIX 40 MG PO (09:02)
[2025-01-08] MEDS: ASPIR LOW (ENTERIC COATED) 81 MG PO (09:03)
[2025-01-08] MEDS: APRESOLINE 25 MG PO (09:03)
[2025-01-08] MEDS: FIORICET 1 TAB PO (09:49)
[2025-01-08 11:31] VITALS: BP 126/59
[2025-01-08 12:03] LABS: Glucose - Point of Care 299 mg/dl (70-99)
[2025-01-08] MEDS: NOVOLOG FLEXPEN-LOW RESISTANCE 3 UNITS SC (12:10)
--- NOTE | 2025-01-08 12:13 | W.PN.HOSP.TC ---
Today's Communication/Plan
-
Monitor vital signs see plan
Headache improving with Fioricet
Discussed with neurology, will start nortriptyline at night and Fioricet as needed
Neurology will follow-up patient outpatient
Discharge today
Time of discharge 37 minutes
Assessment / Plan
Assessment / Plan
General: Well Developed, Well Nourished and No Apparent Distress
HEENT: NormoCephalic, Moist mucous membranes and Atraumatic
Respiratory: Clear
Cardiac: S1/S2 and Regular Rhythm; No Murmur or Rub
GI: Soft, Non Tender, Non Distended and Normal Bowel Sounds
Musculoskeletal: No Edema
Skin: No Rash
Neuro: Nonfocal/grossly intact
Headache likely complex migraine
- MRI 01/07 without acute infarct. Cerebellar and cerebral volume loss.
- Neurology follow-up
- Patient given ketorolac, Reglan, Zofran on admission
- Likely needs to be on prophylactic treatment for migraines
Discussed with neurology Dr. Tanner; started 25 mg nortriptyline at night, Fioricet as needed
History of CVA
- Continue aspirin and statin
Hypertension
- Continue hydralazine, losartan, Coreg
Type 2 diabetes
- Continue glargine 12 units
- Insulin sliding scale
A1c 7
Chronic pancreatic duct dilatation
Mild chronic ALT elevation
Full code
DVT prophylaxis SCDs
Anticipated Discharge: Today
Subjective/Interval History
-
Date of Service: January 08, 2025
Headache this morning
Objective Data
-
Labs:
Laboratory Results
01/08/25
07:14
WBC 5.9
Hgb 10.9 L
Hct 32.1 L
Plt Count 161
Sodium 140
Potassium 4.3
Chloride 111 H
Carbon Dioxide 26
BUN 27 H
Creatinine 1.0
Glucose 106 H
Calcium 9.0
Vital Signs:
Vital Signs
Temp Pulse Resp BP Pulse Ox
97.9 F 64 18 126/59 96
01/08/25 11:31 01/08/25 11:31 01/08/25 11:31 01/08/25 11:31 01/08/25 11:31
I&O
01/07/25 01/08/25 01/09/25
06:59 06:59 06:59
Intake Total 840 / 840
Balance 840 / 840
--- NOTE | 2025-01-08 12:22 | W.DCSUMMARY ---
Discharge Summary
Discharge Data
Date of Admission: 01/06/25
Date of Discharge: 01/08/25
-
Pending Results: No
Hospital Course
84-year-old female with past medical history of type 2 diabetes mellitus, hypertension, CVA, chronic pancreatic ductal dilation came to the hospital with headache. Patient was seen by neurology throughout hospitalization. Given patient history of
stroke before, she got MRI for persistent headache. MRI was negative for any acute infarct. It was determined the patient symptoms could likely be from complex migraine. Neurology recommended patient to take nortriptyline at night and Fioricet as
needed. Neurology also recommended patient to follow-up with them closely outpatient. Since patient symptoms were improving, she was then discharged home with instructions to follow-up with all her physicians outpatient.
Discharge Plan
-
Patient Disposition: Home (Routine Discharge)
Discharge Diagnosis/Procedures: Suspect complex migraine
Headache
Diet: As tolerated
Activity: As tolerated
Driving Restrictions: As prior to admission
Bathing Restrictions: None
Activity Restrictions/Additional Instructions:
fioricet (max 4 days/month) and nortriptylene 25 mg bedtime. Follow-up with neurology closely outpatient
Referrals:
Dickson Gamble MD [Active] - in one to two weeks
Dickson Coronado MD [Family Provider] - in less than 1 week
Prescriptions:
New
nortriptyline 25 mg Capsule
25 mg PO HS Qty: 30 0RF
rmnregsdme-cecxavazvwnke-bgho [Fioricet] 50-300-40 mg capsule
1 cap PO Q8H PRN (Reason: headache) Qty: 20 0RF
Continued
carvedilol [Coreg] 25 mg Tablet
25 mg PO BID
aspirin 81 mg Tablet,Delayed Release (Dr/Ec)
81 mg PO DAILY
atorvastatin 80 mg Tablet
80 mg PO QPM Qty: 30 0RF
insulin glargine-yfgn [Semglee(insulin glarg-yfgn)Pen] 100 unit/mL (3 mL) insulin pen
12 unit SC HS
hydralazine 25 mg tablet
25 mg PO BID
Rx Instructions:
with food
therapeutic multivitamin Tablet
1 tab PO DAILY
pantoprazole 40 mg Tablet,Delayed Release (Dr/Ec)
40 mg PO BID
cholecalciferol (vitamin D3) 50 mcg (2,000 unit) Tablet
50 mcg PO DAILY
losartan 50 mg tablet
50 mg PO BID
polyvinyl alcohol [Artificial Tears (polyvin alc)] 1.4 % Drops
1 drp BOTH EYES DAILYPRN PRN (Reason: dry eyes)
Discharge Orders:
Discharge Patient (As Directed); Ordered 01/08/25
Ordered By: Patrick Boyd
Discharge Date and Time
Discharge Date/Time: 01/08/25 18:17
Print Language: YORUBA
[2025-01-08 15:00] VITALS: BP 138/69
[2025-01-08 15:16] LABS: Glucose - Point of Care 122 mg/dl (70-99)
== END 2025-01-08 18:17 | disposition home health service (06) ==
LOC: 4 EAST ACU 15:07
PROVIDERS: ADMITTING PHYSICIAN Hospitalist; ATTENDING PHYSICIAN Internal Medicine; CONSULT PHYSICIAN Psychiatry & Neurology Clinical Neurophysiology; EMERGENCY PHYSICIAN Emergency Medicine; FAMILY PHYSICIAN Family Medicine
DX: R51.9 Headache, unspecified (principal); R42 Dizziness and giddiness; M54.81 Occipital neuralgia; R47.01 Aphasia; H53.2 Diplopia; R47.81 Slurred speech; E78.00 Pure hypercholesterolemia, unspecified; I10 Essential (primary) hypertension; I25.10 Atherosclerotic heart disease of native coronary artery without angina pectoris; E11.9 Type 2 diabetes mellitus without complications; R74.01 Elevation of levels of liver transaminase levels; R94.31 Abnormal electrocardiogram [ECG] [EKG]; I67.81 Acute cerebrovascular insufficiency; M50.01 Cervical disc disorder with myelopathy, high cervical region; K21.9 Gastro-esophageal reflux disease without esophagitis; Z95.5 Presence of coronary angioplasty implant and graft; Z90.49 Acquired absence of other specified parts of digestive tract; Z88.2 Allergy status to sulfonamides; Z88.0 Allergy status to penicillin; Z88.5 Allergy status to narcotic agent; Z79.899 Other long term (current) drug therapy; Z86.73 Personal history of transient ischemic attack (TIA), and cerebral infarction without residual deficits; Z79.82 Long term (current) use of aspirin; Z79.4 Long term (current) use of insulin
CPT/HCPCS: 70450; 70551; 80048; 80053; 82962; 83036; 84484; 85025; 85027; 93005; 96374; 96375; 97162; 99285; G0378